=== PATIENT | female | born 1955 | race Caucasian/White ===

== ENCOUNTER → 2023-12-09 15:02 | Outpatient (REF) | payer OTHER, SELFPAY | LOC: WDC 15:02 | PROVIDERS: ATTENDING PHYSICIAN Nurse Practitioner | DX: Z12.31 Encounter for screening mammogram for malignant neoplasm of breast (principal) | CPT/HCPCS: 77063; 77067 ==

== ENCOUNTER 2023-12-15 20:13 | Emergency (ER) | payer OTHER, SELFPAY ==
[2023-12-15 20:25] VITALS: BP 171/81
[2023-12-15 20:41] LABS: % Basophils 0.2 % (0-2); % Eosinophils 1.3 % (0-6); % Immature Granulocytes 0.1 % (0-0.5); % Lymphocytes 17.3 % (20.5-51.1); % Monocytes 3.2 % (1.7-9.3); % Neutrophils 77.9 % (42.2-75.2); Absolute Eosinophils 0.1 10^3/uL (0-0.7); Absolute Lymphocytes 1.5 10^3/uL (1.2-3.4); Absolute Monocytes 0.3 10^3/uL (0.1-0.6); Absolute Neutrophils 6.6 10^3/uL (1.4-6.5); Hematocrit 38.6 % (37.0-47.0); Hemoglobin 12.9 g/dL (12.0-16.0); Mean Corp Hgb Conc. 33.4 g/dL (33.0-37.0); Mean Corpuscular Hgb 30.6 pg (27.0-31.0); Mean Corpuscular Volume 91.7 fL (81.0-99.0); Mean Platelet Volume 10.2 fL (7.4-10.4); Nucleated Red Blood Cells % 0 %; Platelet Count 243 10^3/uL (130-400); Red Blood Cell Count 4.21 10^6/uL (4.20-5.40); Red Cell Dist. Width 13.9 % (11.5-14.5); White Blood Cell Count 8.5 10^3/uL (4.8-10.8)
[2023-12-15 21:05] LABS: ALT (SGPT) 27 U/L (0-35); AST (SGOT) 30 U/L (14-36); Albumin 3.6 g/dl (3.5-5.0); Alkaline Phosphatase 101 U/L (38-126); Blood Urea Nitrogen 15 mg/dl (7-17); Calcium 10.2 mg/dl (8.4-10.2); Carbon Dioxide 22 mmol/L (22-30); Chloride 105 mmol/L (98-107); Glucose 91 mg/dl (70-99); Potassium 3.8 mmol/L (3.5-5.1); Sodium 139 mmol/L (135-145); Total Bilirubin 0.7 mg/dl (0.2-1.3); Total Protein 6.4 g/dl (6.3-8.2); eGFR > 60.00
[2023-12-15 21:15] LABS: COVID-19 Antigen Negative (Negative)
[2023-12-15 22:52] VITALS: BP 143/67
--- NOTE | 2023-12-15 22:58 | ED.GENMED ---
History of Present Illness
General
Chief Complaint: Cough
Source: patient
Exam Limitations: none
Time Seen by Provider: 12/15/23 22:37
Nursing documentation reviewed up to this point in time: agreed with
Travel History
Have you had any contact with someone who has COVID-19?: No
Do you have any symptoms of coronavirus? Fever > 100 degrees, chills, cough, shortness of breath, sore throat, loss of taste or smell, muscle aches, or headache?: Yes
Symptoms:: cough fever
History of Present Illness
History of Present Illness:
Patient with history of COPD, presents to ED secondary to persistent cough and shortness of breath over the past 3 days. Patient reports fever chills sensation yesterday, which now has resolved. Patient also reports multiple episodes of diarrhea
today. Denies nausea or vomiting. Denies loss of appetite. Denies headache. Denies dizziness. Denies recent travel or surgery. Denies sick contact. Denies leg swelling. Patient states that she has had history of pneumonia, and is concerned
that she may have another episode. Patient also reporting rib pain from persistent cough.
Past History
Past History
ED Past Medical History: COPD, HTN, Hypercholesterolemia, Valvular disease, Psychiatric (Bipolar disorder, anxiety), Other (Bronchitis) and Other (Pneumonia 2018)
ED Past Surgical History: Gynecological (Hysterectomy) and Other (Left upper lobe lobectomy)
Social History
Tobacco: Smoker
Alcohol: None
Drug: None
Personal:
Living: alone
Employment: Not employed
Family History
Family History: Hypertension
Review of Systems
Review of Systems
Allergies reviewed?: Yes
All Other Systems: ROS reviewed and negative except as documented in HPI and ROS
Constitutional: Reports no symptoms
EENT: Reports no symptoms
Respiratory: Reports cough and trouble breathing
Cardiac: Reports no symptoms
ABD/GI: Reports diarrhea; Denies abdominal pain or vomiting
: Reports no symptoms
Musculoskeletal: Reports other (rib pain)
Skin: Reports no symptoms
Neurological: Reports no symptoms
Phy Exam
Physical Exam
Physical Exam:
Physical Exam
General: no apparent distress, not acutely ill. afebrile
Head: nc/at. eomi
Neck: supple. no meningeal signs.
Heart: s1/s2 regular rate and rhythm, no murmur. equal radial pulses.
Lungs: no acute respiratory distress. clear bilaterally
Abdomen: normal bowel sounds. not tender.
Neuro: alert and oriented. no focal neurological deficits
Skin: no rash
Psychiatric: well kept. interactive and cooperative
Extremities: no edema. no calf tenderness.
Course
Orders/Labs/Results
Orders:
Orders
12/15/23 20:25
Chest [CR Chest - 2 Views ] Urgent
Comment:
Reason For Exam: cough/rib pain
12/15/23 20:33
CBC/With Diff [Complete Blood Count/With Diff] Urgent
CMP [Comprehensive Metabolic Panel] Urgent
COVID-19 Antigen Urgent
Source: Nasal Swab
Influenza A+B Rapid Molecular Urgent
KELBY Source: Nasal Swab
Specimen Description:
12/15/23 23:06
Azithromycin [Zithromax] 500 mg PO NOW STA
Benzonatate [Tessalon Perles] 100 mg PO NOW STA
Prednisone [Deltasone] 50 mg PO NOW STA
Abnormal Lab Results
12/15/23
20:33
Absolute Neuts (auto) 6.6 H 10^3/uL
(1.4-6.5)
Neutrophils % 77.9 H %
(42.2-75.2)
Lymphocytes % 17.3 L %
(20.5-51.1)
Creatinine 0.5 L mg/dL
(0.6-1.0)
12/15/23 20:33
12/15/23 20:33
Vital Signs
Initial and Last Documented VS:
Initial Vital Signs
Temp Pulse Resp BP Pulse Ox
98.7 F 84 17 171/81 96
12/15/23 20:25 12/15/23 20:25 12/15/23 20:25 12/15/23 20:25 12/15/23 20:25
Last Documented Vital Signs
Temp Pulse Resp BP Pulse Ox
98.9 F 82 16 143/67 94
12/15/23 22:52 12/15/23 22:52 12/15/23 22:52 12/15/23 22:52 12/15/23 22:52
MDM/Problems Addressed
MDM/Problems Addressed:
Chest x-ray: No acute findings. Patient otherwise remains afebrile, he medically stable, without any acute respiratory distress.
History and exam concerning for likely bronchitis versus early pneumonia versus viral illness. After discussion, decision made to discharge home with the following recommendation: Zithromax, prednisone, and Tessalon Perles. Advised PCP follow-up
as an outpatient next week, or return to ED with worsening symptoms.
*Radiology
Radiology exam reviewed: radiology read reviewed
*Critical Care Note
Total Time (30-74mins, 75-104mins- exclusive of procedures): Not Applicable
ED Attending Note
-
Portions of this chart may have been created with voice recognition software.� Occasional wrong word or��sound alike� substitutions may have occurred due to the inherent limitations of voice recognition software.
Discharge Plan
Departure
Patient Disposition: Home (Routine Discharge)
Date of Disposition: 12/15/23
Time of Disposition: 23:07
Patient with high blood pressure during this ER visit?: Yes
Condition: Fair
Covid-19: Negative COVID-19
Discharge Problem:
Acute bronchitis
Instructions: Acute Bronchitis, Adult (DC)
Prescriptions:
New
azithromycin [Zithromax] 250 mg tablet
250 mg PO DAILY 4 Days Qty: 4 0RF
benzonatate 100 mg capsule
100 mg PO TID PRN (Reason: cough) Qty: 20 0RF
prednisone 50 mg tablet
50 mg PO DAILY Qty: 2 0RF
No Action
atorvastatin 40 MG tablet
40 mg PO DAILY
quetiapine [Seroquel] 400 MG tablet
800 mg PO HS
Rx Instructions:
patient also filled 200mg daily and 400mg bid on 05/31/23
buprenorphine HCl [Belbuca] 750 MCG film
750 mcg BC BID
Rx Instructions:
[facility]mp patient filled on 05/01/23 #60 [facility] [place] [facility]
clonazepam 0.5 MG tablet
0.5 mg PO TID
Rx Instructions:
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
escitalopram oxalate 10 MG tablet
10 mg PO BID
Rx Instructions:
no record in pharmacy
hydrochlorothiazide 12.5 MG tablet
12.5 mg PO DAILY
Rx Instructions:
06/06/23--no pharmacy records, [facility] records show tid/or as directed
gabapentin 800 mg Tablet
400 mg PO TID
hydrocodone-acetaminophen 7.5-325 mg tablet
1 tab PO TID PRN (Reason: severe pains)
Rx Instructions:
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
prednisone 20 mg tablet
40 mg PO DAILY Qty: 8 0RF
Activity Restrictions/Additional Instructions:
As discussed, please follow-up with your primary care doctor for reevaluation next week. Your prescriptions have been sent electronically to [facility] on [facility] in [place].
Interventions
Interventions:
*Risk Screen - Suicide Last Done: 12/15/23 20:25
*General Assessment Last Done: 12/15/23 20:25
*Neglect/Abuse Screening Last Done: 12/15/23 20:25
ED- Fall Risk Assessment Last Done: 12/15/23 22:48
*ED COVID-19 Vaccine History Last Done: 12/15/23 20:25
*Nursing Disposition Last Done: 12/15/23 23:25
ED- Pulmonary Assessment Last Done: 12/15/23 22:48
Discharge Date and Time
Discharge Date/Time: 12/15/23 23:25
[2023-12-15] MEDS: DELTASONE 50 MG PO (23:21)
[2023-12-15] MEDS: TESSALON PERLES 100 MG PO (23:21)
[2023-12-15] MEDS: ZITHROMAX 500 MG PO (23:21)
== END 2023-12-15 23:25 | disposition home or self-care (01) ==
LOC: EMR 20:13
PROVIDERS: Emergency Medicine; EMERGENCY PHYSICIAN Emergency Medicine; FAMILY PHYSICIAN Nurse Practitioner
DX: J20.9 Acute bronchitis, unspecified (principal); R19.7 Diarrhea, unspecified; Z11.52 Encounter for screening for COVID-19; I10 Essential (primary) hypertension; E78.00 Pure hypercholesterolemia, unspecified; J44.9 Chronic obstructive pulmonary disease, unspecified; I38 Endocarditis, valve unspecified; F31.9 Bipolar disorder, unspecified; M19.90 Unspecified osteoarthritis, unspecified site; F32.A Depression, unspecified; F41.9 Anxiety disorder, unspecified; F17.200 Nicotine dependence, unspecified, uncomplicated; Z87.01 Personal history of pneumonia (recurrent); Z90.2 Acquired absence of lung [part of]
CPT/HCPCS: 99283; 71046; 80053; 85025; 87502; 87811

== ENCOUNTER 2024-08-02 20:27 | Emergency (ER) | payer OTHER, SELFPAY ==
[2024-08-02 20:29] VITALS: BP 131/72
[2024-08-02 22:36] VITALS: BP 109/57
[2024-08-03] MEDS: TORADOL 15 MG IM (00:16)
[2024-08-03 00:18] VITALS: BMI 22.2
[2024-08-03 00:20] VITALS: BP 110/61
--- NOTE | 2024-08-03 00:24 | ED.GENMED ---
History of Present Illness
General
Chief Complaint: Fall
Time Seen by Provider: 08/02/24 23:34
History of Present Illness
History of Present Illness:
69-year-old female with history of COPD presenting to the emergency department with buttock and pelvic pain after she fell 3 days ago. Patient reports that she slipped down 3 steps, concrete and landed on her buttock. She now has bruising to the
left buttock region and generalized pain. She has been able to ambulate. Denies numbness or tingling to her legs. Denies fever. Denies bowel or bladder issues. Denies abdominal pain or GI issues. Denies chest pain or difficulty breathing.
Reports that she slipped on the steps, they were wet with fleas. Denies any prodromal syncopal symptoms. Denies additional acute medical complaints
Past History
Past History
ED Past Medical History: COPD, HTN, Hypercholesterolemia, Valvular disease, Psychiatric (Bipolar disorder, anxiety), Other (Bronchitis) and Other (Pneumonia 2018)
ED Past Surgical History: Gynecological (Hysterectomy) and Other (Left upper lobe lobectomy)
Social History
Tobacco: Smoker
Alcohol: None
Drug: None
Personal:
Living: alone
Employment: Not employed
Family History
Family History: Hypertension
Phy Exam
Physical Exam
Physical Exam:
General: Well-appearing, no clinical signs of dehydration, nontoxic and in no acute distress
HEENT: protecting airway
Neck: appears supple
CV: Normal heart rate
Resp: No accessory muscle use, no increased work of breathing
Abd: No distention
Extremities: No deformities. Range of motion and sensation intact to the lower extremities. Bruising to the left buttock without significant hematoma. Generalized pain to the pelvis region, stable.
Neuro: alert, no focal neurologic deficit
: deferred
Rectal: deferred
Psych: Normal affect
Skin: Intact
Course
Orders/Labs/Results
Orders:
Orders
08/03/24 00:[address]
CT Pelvis W/o Iv Contrast Urgent
Comment:
Reason For Exam: fall, bruising left buttock, generalized pain
Ketorolac [Toradol] 15 mg IM NOW STA
Vital Signs
Initial and Last Documented VS:
Initial Vital Signs
Temp Pulse Resp BP Pulse Ox
98.1 F 76 16 131/72 98
08/02/24 20:29 08/02/24 20:29 08/02/24 20:29 08/02/24 20:29 08/02/24 20:29
Last Documented Vital Signs
Temp Pulse Resp BP Pulse Ox
98.1 F 60 16 130/64 96
08/02/24 20:29 08/03/24 02:39 08/03/24 02:39 08/03/24 02:39 08/03/24 02:39
MDM/Problems Addressed
MDM/Problems Addressed:
69-year-old female with history of COPD presenting with buttock pain after a fall 3 days ago. Vital signs on arrival are normal.
On exam, is well-appearing, no discomfort. Patient with obvious signs of ecchymosis to the left buttock region, generalized pain. Suspected musculoskeletal injury, minor in quality. However, given generalized pain to the pelvic region patient's
age, pelvic fracture is a consideration, will obtain CT imaging of the pelvis. No neurovascular compromise to the lower extremities, range of motion intact. Toradol administered for pain.
03:20 - CT of the pelvis without fractures or malalignment. Continue to suspect minor soft tissue injury. CT notes possible right gluteus medius tendon tear on the right side, however patient's injury in the left. Less suspicious at this time.
Feel stable for discharge with continued outpatient supportive therapy. Return precautions discussed and patient verbalized understanding
*Critical Care Note
Total Time (30-74mins, 75-104mins- exclusive of procedures): Not Applicable
ED Attending Note
-
Portions of this chart may have been created with voice recognition software.� Occasional wrong word or��sound alike� substitutions may have occurred due to the inherent limitations of voice recognition software.
Discharge Plan
Departure
Prescriptions:
No Action
atorvastatin 40 MG tablet
40 mg PO DAILY
quetiapine [Seroquel] 400 MG tablet
800 mg PO HS
Rx Instructions:
patient also filled 200mg daily and 400mg bid on 05/31/23
buprenorphine HCl [Belbuca] 750 MCG film
750 mcg BC BID
Rx Instructions:
pdmp patient filled on 05/01/23 #60 [facility]
clonazepam 0.5 MG tablet
0.5 mg PO TID
Rx Instructions:
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
escitalopram oxalate 10 MG tablet
10 mg PO BID
Rx Instructions:
no record in pharmacy
hydrochlorothiazide 12.5 MG tablet
12.5 mg PO DAILY
Rx Instructions:
06/06/23--no pharmacy records, [facility] records show tid/or as directed
gabapentin 800 mg Tablet
400 mg PO TID
hydrocodone-acetaminophen 7.5-325 mg tablet
1 tab PO TID PRN (Reason: severe pains)
Rx Instructions:
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
prednisone 20 mg tablet
40 mg PO DAILY Qty: 8 0RF
azithromycin [Zithromax] 250 mg tablet
250 mg PO DAILY 4 Days Qty: 4 0RF
benzonatate 100 mg capsule
100 mg PO TID PRN (Reason: cough) Qty: 20 0RF
prednisone 50 mg tablet
50 mg PO DAILY Qty: 2 0RF
Referrals:
Mary Lou Castorena CRNP [Family Provider] -
Interventions
Interventions:
*Risk Screen - Suicide Last Done: 08/02/24 20:32
*General Assessment Last Done: 08/02/24 23:28
*Neglect/Abuse Screening Last Done: 08/02/24 20:32
*ED COVID-19 Vaccine History Last Done: 08/02/24 23:28
ED-Musculoskeletal Assessment Last Done: 08/03/24 00:20
ED- Neurological Assessment Last Done: 08/03/24 00:20
ED-Skin Assessment Last Done: 08/03/24 00:20
Discharge Date and Time
Print Language: CYMRAES
[2024-08-03 02:39] VITALS: BP 130/64
== END 2024-08-03 03:42 | disposition home or self-care (01) ==
LOC: EMR 20:27
PROVIDERS: EMERGENCY PHYSICIAN Student in an Organized Health Care Education/Training Program; FAMILY PHYSICIAN Nurse Practitioner
DX: S30.0XXA Contusion of lower back and pelvis, initial encounter (principal); R10.2 Pelvic and perineal pain; W10.9XXA Fall (on) (from) unspecified stairs and steps, initial encounter; J44.9 Chronic obstructive pulmonary disease, unspecified; I10 Essential (primary) hypertension; E78.00 Pure hypercholesterolemia, unspecified; F31.9 Bipolar disorder, unspecified; I38 Endocarditis, valve unspecified; F41.9 Anxiety disorder, unspecified; F17.200 Nicotine dependence, unspecified, uncomplicated; Z87.01 Personal history of pneumonia (recurrent); Z90.2 Acquired absence of lung [part of]
CPT/HCPCS: 99284; 96372; 72192

== ENCOUNTER 2024-09-06 14:19 | Emergency (ER) | payer OTHER, SELFPAY ==
[2024-09-06 14:26] VITALS: BP 117/58
--- NOTE | 2024-09-06 15:28 | ED.GENMED ---
History of Present Illness
General
Chief Complaint: Back Pain
Source: patient
Exam Limitations: none
Time Seen by Provider: 09/06/24 15:16
History of Present Illness
History of Present Illness:
69-year-old female presents to the ER for low back pain. 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 She went to
bed and thought she would feel better this morning but continues to complain of pain across the low back. She is taking her normal hydrocodone. She denies any radiation. She denies any bowel or bladder incontinence. She feels nauseous because
the pain. It is worse with movement and changing positions.
Past History
Past History
ED Past Medical History: COPD, HTN, Hypercholesterolemia, Valvular disease, Psychiatric (Bipolar disorder, anxiety), Other (Bronchitis) and Other (Pneumonia 2018)
ED Past Surgical History: Gynecological (Hysterectomy) and Other (Left upper lobe lobectomy)
Social History
Tobacco: Smoker
Alcohol: None
Drug: None
Personal:
Living: alone
Employment: Not employed
Family History
Family History: Hypertension
Review of Systems
Review of Systems
Allergies reviewed?: Yes
All Other Systems: ROS reviewed and negative except as documented in HPI and ROS
Constitutional: Reports no symptoms; Denies fever, fatigue or chills
ABD/GI: Reports nausea; Denies abdominal pain or vomiting
: Denies incontinence
Musculoskeletal: Reports back pain
Skin: Reports no symptoms
Neurological: Reports no symptoms
Psychiatric: Reports no symptoms
Phy Exam
General Physical Exam
General Presentation: no apparent distress
General age: appears stated age
General Skin: warm and dry
General Habitus: normal
General Mental: alert
General Hydration: appears well hydrated
Gastrointestinal Exam
Gastrointestinal Exam: non tender and soft
Neurological Exam
Neurological Exam: alert, oriented x3, no motor deficits, no sensory deficits and other (Normal distal sensation normal dorsiflexion plantarflexion)
Musculoskeletal Exam
Musculoskeletal Exam: other (Normal back inspection tender throughout the paralumbar regions)
Course
Orders/Labs/Results
Orders:
Orders
09/06/24 15:26
Lumbar Spine Complete, 4 View [CR Lumbar Spine Comp Min 4 Vw*] Urgent
Comment:
Reason For Exam: low back pain after lifting
09/06/24 15:27
Acetaminophen [Tylenol] 650 mg PO NOW STA
Ketorolac [Toradol] 30 mg IM NOW STA
Lidocaine [Lidocaine 4% Patch] 1 patch TOPICAL NOW STA
Apply Lidocaine patch(s) to:: lower back
Vital Signs
Initial and Last Documented VS:
Initial Vital Signs
Temp Pulse Resp BP Pulse Ox
98.6 F 76 16 117/58 95
09/06/24 14:26 09/06/24 14:26 09/06/24 14:26 09/06/24 14:26 09/06/24 14:26
Last Documented Vital Signs
Temp Pulse Resp BP Pulse Ox
98.6 F 76 16 117/58 95
09/06/24 14:26 09/06/24 14:26 09/06/24 14:26 09/06/24 14:26 09/06/24 14:26
MDM/Problems Addressed
Differential Diagnosis Includes:
Not limited to sprain strain less likely compression fracture
MDM/Problems Addressed:
Symptoms are consistent with muscle sprain strain. X-ray negative for any compression fracture. Patient with no neurological deficits. Patient is chronically on narcotics for chronic back pain. Will DC with Tylenol, alternating with ibuprofen as
she reports normal kidney function(last creatinine done 12/23 which was normal )with ice and alternating heat.
Discussed close outpatient follow-up with family doctor.
*Radiology
Radiology exam reviewed: radiology read reviewed
*Critical Care Note
Total Time (30-74mins, 75-104mins- exclusive of procedures): Not Applicable
ED Attending Note
-
Portions of this chart may have been created with voice recognition software.� Occasional wrong word or��sound alike� substitutions may have occurred due to the inherent limitations of voice recognition software.
Discharge Plan
Departure
Patient Disposition: Home (Routine Discharge)
Date of Disposition: 09/06/24
Time of Disposition: 16:34
Patient with high blood pressure during this ER visit?: No
Condition: Fair
Covid-19: Not Applicable
Discharge Problem:
Lumbar strain
Instructions: Low Back Pain (DC), Back Muscle Strain (DC)
Prescriptions:
New
lidocaine 5 % adhesive patch,medicated
1 patch topical DAILY Qty: 15 0RF
Rx Instructions:
remove after 12 hrs
No Action
atorvastatin 40 MG tablet
40 mg PO DAILY
quetiapine [Seroquel] 400 MG tablet
800 mg PO HS
Rx Instructions:
patient also filled 200mg daily and 400mg bid on 05/31/23
buprenorphine HCl [Belbuca] 750 MCG film
750 mcg BC BID
Rx Instructions:
pdmp patient filled on 05/01/23 #60 [facility] [place] [facility]
clonazepam 0.5 MG tablet
0.5 mg PO TID
Rx Instructions:
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
escitalopram oxalate 10 MG tablet
10 mg PO BID
Rx Instructions:
no record in pharmacy
hydrochlorothiazide 12.5 MG tablet
12.5 mg PO DAILY
Rx Instructions:
06/06/23--no pharmacy records, [facility] records show tid/or as directed
gabapentin 800 mg Tablet
400 mg PO TID
hydrocodone-acetaminophen 7.5-325 mg tablet
1 tab PO TID PRN (Reason: severe pains)
Rx Instructions:
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
prednisone 20 mg tablet
40 mg PO DAILY Qty: 8 0RF
azithromycin [Zithromax] 250 mg tablet
250 mg PO DAILY 4 Days Qty: 4 0RF
benzonatate 100 mg capsule
100 mg PO TID PRN (Reason: cough) Qty: 20 0RF
prednisone 50 mg tablet
50 mg PO DAILY Qty: 2 0RF
Referrals:
Cailin Bedolla CRNP [Family Provider] -
Activity Restrictions/Additional Instructions:
As discussed ice affected area for the next 24 hours 20 minutes at a time several times a day followed by warm moist heat. You may continue to take your pain medication and alternate with ibuprofen. Return if any worsening of symptoms. Follow-up
with your family doctor the next several days for reevaluation.
Interventions
Interventions:
*Risk Screen - Suicide Last Done: 09/06/24 16:34
*General Assessment Last Done: 09/06/24 16:34
*Neglect/Abuse Screening Last Done: 09/06/24 16:34
ED-Musculoskeletal Assessment Last Done: 09/06/24 15:11
Discharge Date and Time
Print Language: MAORI
[2024-09-06] MEDS: TORADOL 30 MG IM (16:12)
[2024-09-06] MEDS: TYLENOL 650 MG PO (16:12)
[2024-09-06] MEDS: LIDOCAINE 4% PATCH 1 PATCH TOPICAL (16:13)
[2024-09-06 16:53] VITALS: BP 123/69
== END 2024-09-06 16:55 | disposition home or self-care (01) ==
LOC: EMR 14:19
PROVIDERS: EMERGENCY PHYSICIAN Emergency Medicine; FAMILY PHYSICIAN Nurse Practitioner Family
DX: S39.012A Strain of muscle, fascia and tendon of lower back, initial encounter (principal); X50.1XXD Overexertion from prolonged static or awkward postures, subsequent encounter; F17.200 Nicotine dependence, unspecified, uncomplicated
CPT/HCPCS: 99284; 96372; 72110

== ENCOUNTER → 2024-09-17 13:04 | Outpatient (REF) | payer OTHER, SELFPAY ==
[2024-09-17 16:36] LABS: ALT (SGPT) 34 U/L (0-35); AST (SGOT) 31 U/L (14-36); Albumin 4.5 g/dl (3.5-5.0); Alkaline Phosphatase 77 U/L (38-126); Blood Urea Nitrogen 15 mg/dl (7-17); Calcium 9.9 mg/dl (8.4-10.2); Carbon Dioxide 26 mmol/L (22-30); Chloride 105 mmol/L (98-107); Glucose 103 mg/dl (70-99); HDL Cholesterol 68 mg/dl; LDL Cholesterol, Calculated 80 mg/dl; Potassium 4.4 mmol/L (3.5-5.1); Sodium 143 mmol/L (135-145); Total Bilirubin 0.6 mg/dl (0.2-1.3); Total Cholesterol 169 mg/dl (50-199); Total Protein 6.8 g/dl (6.3-8.2); Triglyceride 107 mg/dl (10-149); Very Low Density Lipoprotein 21 mg/dl (0-30); eGFR > 60.00
[2024-09-17 17:04] LABS: TSH 0.78 uIU/ml (0.47-4.68)
[2024-09-17 17:23] LABS: Vitamin B12 413 pg/ml (239-931)
== END ==
LOC: REG 13:04
PROVIDERS: ATTENDING PHYSICIAN Nurse Practitioner
DX: F17.210 Nicotine dependence, cigarettes, uncomplicated (principal); Z86.39 Personal history of other endocrine, nutritional and metabolic disease
CPT/HCPCS: 36415; 71271; 80053; 80061; 82607; 84443

== ENCOUNTER 2024-10-15 14:33 | Emergency (ER) | payer OTHER, SELFPAY ==
[2024-10-15] VITALS (7 sets, daily range): BP systolic 94–135; BP diastolic 55–78; PULSE 65–70; BMI 24.4
--- NOTE | 2024-10-15 14:37 | ED.GENMED ---
ED Provider Triage
<CARITO Roman - Last Filed: 10/15/24 14:45>
-
Patient seen by provider in Triage?: Seen in Triage
Attestation: A medical screening examination has been initiated by a qualified medical provider. Based on the assessment performed at this time, it has been determined that an emergent medical condition may exist and the patient has been informed
that further medical evaluation and possible additional diagnostic testing may be needed.
HPI: 69 yr old female brought by daughter for dizziness and falls. (This is pt's 2nd fall in 2 wks ).
Pt was found on the floor today in her house awake and daughter found her. Pt reports she walked over to get something 'and just fell.' She felt 'wobbly and dizzy then remembers falling. Pt reports she slid down onto her buttocks. Pt c/o of
mild headache. Daughter thought she noticed a slight droop on her left.
Pt denies any upper/lower extremity weakness. denies any difficulty getting her words out . No history of stroke.
No chest pain, no difficulty breathing. no fevers
GENERAL: Alert , in no apparent distress
EYE: No visual abnormalities.
NECK: Trachea midline
ENT: No visible abnormalities.
LUNGS: No acute respiratory distress
NEUROLOGICAL: Alert and oriented no focal deficit
SKIN: Skin intact. No visible changes.
MUSCULOSKELETAL: Moving extremities normally
PSYCH: Normal and appropriate interaction.
This is a medical evaluation conducted in person to initiate diagnostic evaluation and provide initial therapeutics. Please see further documentation by the treating clinician.
History of Present Illness
<CARITO Roman - Last Filed: 10/15/24 14:45>
General
Chief Complaint: Dizziness
Time Seen by Provider: 10/15/24 20:08
<Basilio Marino DO Resident - Last Filed: 10/15/24 23:15>
History of Present Illness
History of Present Illness:
69-year-old female with past med history of COPD, hyperlipidemia, hypertension and lung lobectomy 30 years ago presents for a witnessed fall. Patient reports she was at home trying to plug in an appliance when she begun feeling dizzy, she then fell
onto her butt. Patient reports not hitting her head or losing consciousness, and her daughter witnessed the entire event. Patient reports this is her second fall in a few weeks. Patient endorses dizziness on standing. Per the daughter patient
has new onset facial droop left-sided and slurred speech. CT head in ED was negative for any intracranial hemorrhage. EKG was within normal limits.
Past History
<CARITO Roman - Last Filed: 10/15/24 14:45>
Past History
ED Past Medical History: COPD, HTN, Hypercholesterolemia, Valvular disease, Psychiatric (Bipolar disorder, anxiety), Other (Bronchitis) and Other (Pneumonia 2018)
ED Past Surgical History: Gynecological (Hysterectomy) and Other (Left upper lobe lobectomy)
Social History
Tobacco: Smoker
Alcohol: None
Drug: None
Personal:
Living: alone
Employment: Not employed
Family History
Family History: Hypertension
Review of Systems
<Basilio Marino DO, Resident - Last Filed: 10/15/24 23:15>
Review of Systems
Constitutional: Reports fatigue
Respiratory: Reports cough and trouble breathing
Cardiac: Reports no symptoms
ABD/GI: Reports no symptoms
Musculoskeletal: Reports no symptoms
Neurological: Reports dizzy and weakness
Phy Exam
<Basilio Marino DO, Resident - Last Filed: 10/15/24 23:15>
General Physical Exam
General Presentation: no apparent distress
General age: appears older than age
General Skin: warm and dry
Cardiovascular Exam
Cardiovascular Exam: regular rate/rhythm, no edema and no murmur
Pulmonary Exam
Pulmonary Exam: no respiratory distress and other (Diffuse wheezing present throughout lung barba)
Gastrointestinal Exam
Gastrointestinal Exam: non tender, soft and non distended
Neurological Exam
Neurological Exam: alert, oriented x3, CN II-XII intact, no motor deficits, no sensory deficits, facial droop and slurred speech (Speech slightly slurred)
Course
<CARITO Roman - Last Filed: 10/15/24 14:45>
Orders/Labs/Results
Orders:
Orders
10/15/24 14:43
CT Head W/o Iv Contrast Urgent
Comment:
Reason For Exam: dizziness
10/15/24 14:44
Electrocardiogram (*1) Stat
Reason for Study: Other
Other Reason for Exam: chest pain
EKG- Treatment ONCE
10/15/24 14:51
Complete Blood Count/With Diff Urgent
Comprehensive Metabolic Panel Urgent
Troponin I Urgent
10/15/24 20:56
Orthostatic VS- Treatment ONCE
10/15/24 20:57
Ipratropium/Albuterol Sulfate [Duoneb] 3 ml INH R NOW STA
10/15/24 21:05
0.9% Sodium Chloride 1000 ml [Nss] 1,000 ml IV BOLUS
Abnormal Lab Results
10/15/24
14:51
RBC 4.01 L 10^6/uL
(4.20-5.40)
MCHC 32.7 L g/dL
(33.0-37.0)
BUN 18 H mg/dl
(7-17)
Glucose 113 H mg/dl
(70-99)
Total Protein 6.2 L g/dl
(6.3-8.2)
10/15/24 14:51
10/15/24 14:51
Vital Signs
Initial and Last Documented VS:
Initial Vital Signs
Temp Pulse Resp BP Pulse Ox
98.2 F 75 20 109/61 98
10/15/24 14:37 10/15/24 14:37 10/15/24 14:37 10/15/24 14:37 10/15/24 14:37
Last Documented Vital Signs
Temp Pulse Resp BP Pulse Ox
98.2 F 69 14 94/78 93
10/15/24 21:00 10/15/24 18:00 10/15/24 18:00 10/15/24 18:00 10/15/24 22:33
<Basilio Marino DO, Resident - Last Filed: 10/15/24 23:15>
Orders/Labs/Results
Orders:
Orders
10/15/24 14:43
CT Head W/o Iv Contrast Urgent
Comment:
Reason For Exam: dizziness
10/15/24 14:44
Electrocardiogram (*1) Stat
Reason for Study: Other
Other Reason for Exam: chest pain
EKG- Treatment ONCE
10/15/24 14:51
Complete Blood Count/With Diff Urgent
Comprehensive Metabolic Panel Urgent
Troponin I Urgent
10/15/24 20:56
Orthostatic VS- Treatment ONCE
10/15/24 20:57
Ipratropium/Albuterol Sulfate [Duoneb] 3 ml INH R NOW STA
10/15/24 21:05
0.9% Sodium Chloride 1000 ml [Nss] 1,000 ml IV BOLUS
Abnormal Lab Results
10/15/24
14:51
RBC 4.01 L 10^6/uL
(4.20-5.40)
MCHC 32.7 L g/dL
(33.0-37.0)
BUN 18 H mg/dl
(7-17)
Glucose 113 H mg/dl
(70-99)
Total Protein 6.2 L g/dl
(6.3-8.2)
10/15/24 14:51
10/15/24 14:51
Vital Signs
Initial and Last Documented VS:
Initial Vital Signs
Temp Pulse Resp BP Pulse Ox
98.2 F 75 20 109/61 98
10/15/24 14:37 10/15/24 14:37 10/15/24 14:37 10/15/24 14:37 10/15/24 14:37
Last Documented Vital Signs
Temp Pulse Resp BP Pulse Ox
98.2 F 69 14 94/78 93
10/15/24 21:00 10/15/24 18:00 10/15/24 18:00 10/15/24 18:00 10/15/24 22:33
<Kali Christianson, DO - Last Filed: 10/15/24 21:07>
Orders/Labs/Results
Orders:
Orders
10/15/24 14:43
CT Head W/o Iv Contrast Urgent
Comment:
Reason For Exam: dizziness
10/15/24 14:44
Electrocardiogram (*1) Stat
Reason for Study: Other
Other Reason for Exam: chest pain
EKG- Treatment ONCE
10/15/24 14:51
Complete Blood Count/With Diff Urgent
Comprehensive Metabolic Panel Urgent
Troponin I Urgent
10/15/24 20:56
Orthostatic VS- Treatment ONCE
10/15/24 20:57
Ipratropium/Albuterol Sulfate [Duoneb] 3 ml INH R NOW STA
10/15/24 21:05
0.9% Sodium Chloride 1000 ml [Nss] 1,000 ml IV BOLUS
Abnormal Lab Results
10/15/24
14:51
RBC 4.01 L 10^6/uL
(4.20-5.40)
MCHC 32.7 L g/dL
(33.0-37.0)
BUN 18 H mg/dl
(7-17)
Glucose 113 H mg/dl
(70-99)
Total Protein 6.2 L g/dl
(6.3-8.2)
10/15/24 14:51
10/15/24 14:51
Vital Signs
Initial and Last Documented VS:
Initial Vital Signs
Temp Pulse Resp BP Pulse Ox
98.2 F 75 20 109/61 98
10/15/24 14:37 10/15/24 14:37 10/15/24 14:37 10/15/24 14:37 10/15/24 14:37
Last Documented Vital Signs
Temp Pulse Resp BP Pulse Ox
98.2 F 69 14 94/78 93
10/15/24 21:00 10/15/24 18:00 10/15/24 18:00 10/15/24 18:00 10/15/24 22:33
<Basilio Marino DO, Resident - Last Filed: 10/15/24 23:15>
MDM/Problems Addressed
Differential Diagnosis Includes:
Orthostatic hypotension versus mechanical fall versus primary gait disturbance
MDM/Problems Addressed:
#Orthostatic hypotension versus mechanical fall versus gait disturbance
Witnessed fall on butt while patient was attempting to plug an appliance, patient did not lose consciousness or hit her head. Fall was witnessed by patient's daughter
Multiple recurrent falls over the past couple months. Patient endorses her previous falls were mechanical in nature. Her fall today was precipitated by feelings of dizziness on standing
Will check orthostatic vitals and nursing to evaluate gait
Orthostatic vitals positive
Ordered 1 L IV normal saline bolus
CT head without contrast did not demonstrate any acute intracranial hemorrhage
EKG within normal limits
Diffuse wheezing present on exam, known COPD. Will order DuoNebs
<Basilio Marino DO, Resident - Last Filed: 10/15/24 23:15>
*Critical Care Note
Total Time (30-74mins, 75-104mins- exclusive of procedures): Not Applicable
ED Attending Note
<CARITO Roman - Last Filed: 10/15/24 14:45>
-
Portions of this chart may have been created with voice recognition software.� Occasional wrong word or��sound alike� substitutions may have occurred due to the inherent limitations of voice recognition software.
<Kali Christianson DO - Last Filed: 10/15/24 21:07>
ED Attending Note
Patient seen and examined by attending physician: Yes
I performed the substantive portion of visit, reviewed & personally made and approve the management plan that is documented in note by myself or QUINTIN.: Yes
I performed a history and physical exam of patient and discussed management with resident, I reviewed resident's note and agree with documented findings and plan of care.: Yes
ED Attending Note:
Seen with resident patient with a few episodes of falls, today fell after standing here workup is negative pulse ox 92-93 she is wheezing she is a smoker, COPD history could be consistent with orthostasis which requires tach vital signs, treat with
saline if appropriate, review her meds, ambulate
Discharge Plan
Departure
Patient Disposition: Home (Routine Discharge)
Date of Disposition: 10/15/24
Time of Disposition: 22:42
Patient with high blood pressure during this ER visit?: No
Condition: Good
Discharge Problem:
Orthostasis
Instructions: Dizziness
Prescriptions:
No Action
atorvastatin 40 MG tablet
40 mg PO DAILY
quetiapine [Seroquel] 400 MG tablet
800 mg PO HS
Rx Instructions:
patient also filled 200mg daily and 400mg bid on 05/31/23
buprenorphine HCl [Belbuca] 750 MCG film
750 mcg BC BID
Rx Instructions:
[facility]mp patient filled on 05/01/23 #60 [facility] [place] [facility]
clonazepam 0.5 MG tablet
0.5 mg PO TID
Rx Instructions:
pdmp patient potato picker on 05/28/23 #90
escitalopram oxalate 10 MG tablet
10 mg PO BID
Rx Instructions:
no record in pharmacy
hydrochlorothiazide 12.5 MG tablet
12.5 mg PO DAILY
Rx Instructions:
06/06/23--no pharmacy records, [facility] records show tid/or as directed
gabapentin 800 mg Tablet
400 mg PO TID
hydrocodone-acetaminophen 7.5-325 mg tablet
1 tab PO TID PRN (Reason: severe pains)
Rx Instructions:
pdmp patient potato picker on 05/28/23 #90
prednisone 20 mg tablet
40 mg PO DAILY Qty: 8 0RF
azithromycin [Zithromax] 250 mg tablet
250 mg PO DAILY 4 Days Qty: 4 0RF
benzonatate 100 mg capsule
100 mg PO TID PRN (Reason: cough) Qty: 20 0RF
prednisone 50 mg tablet
50 mg PO DAILY Qty: 2 0RF
lidocaine 5 % adhesive patch,medicated
1 patch topical DAILY Qty: 15 0RF
Rx Instructions:
remove after 12 hrs
Referrals:
Mary Lou Castorena CRNP [Family Provider] - Next open appointment
Interventions
Interventions:
*Risk Screen - Suicide Last Done: 10/15/24 14:37
*General Assessment Last Done: 10/15/24 14:37
*Neglect/Abuse Screening Last Done: 10/15/24 14:37
ED- Fall Risk Assessment Last Done: 10/15/24 18:54
*ED COVID-19 Vaccine History Last Done: 10/15/24 18:59
ED- Cardiac Assessment Last Done: 10/15/24 19:00
ED- Neurological Assessment Last Done: 10/15/24 19:00
ED Swallowing Screen Last Done: 10/15/24 18:09
Discharge Date and Time
Print Language: NAURUAN
[2024-10-15 15:06] LABS: % Basophils 0.3 % (0-2); % Eosinophils 1.3 % (0-6); % Immature Granulocytes 0.3 % (0-0.5); % Lymphocytes 29.2 % (20.5-51.1); % Monocytes 3.7 % (1.7-9.3); % Neutrophils 65.2 % (42.2-75.2); Absolute Eosinophils 0.1 10^3/uL (0-0.7); Absolute Lymphocytes 1.7 10^3/uL (1.2-3.4); Absolute Monocytes 0.2 10^3/uL (0.1-0.6); Absolute Neutrophils 3.9 10^3/uL (1.4-6.5); Hematocrit 37.3 % (37.0-47.0); Hemoglobin 12.2 g/dL (12.0-16.0); Mean Corp Hgb Conc. 32.7 g/dL (33.0-37.0); Mean Corpuscular Hgb 30.4 pg (27.0-31.0); Mean Platelet Volume 10.1 fL (7.4-10.4); Nucleated Red Blood Cells % 0 %; Platelet Count 253 10^3/uL (130-400); Red Blood Cell Count 4.01 10^6/uL (4.20-5.40); Red Cell Dist. Width 13.4 % (11.5-14.5); White Blood Cell Count 5.9 10^3/uL (4.8-10.8)
[2024-10-15 15:21] LABS: ALT (SGPT) 28 U/L (0-35); AST (SGOT) 32 U/L (14-36); Albumin 3.9 g/dl (3.5-5.0); Alkaline Phosphatase 85 U/L (38-126); Blood Urea Nitrogen 18 mg/dl (7-17); Calcium 9.8 mg/dl (8.4-10.2); Carbon Dioxide 29 mmol/L (22-30); Chloride 106 mmol/L (98-107); Glucose 113 mg/dl (70-99); Potassium 4.3 mmol/L (3.5-5.1); Sodium 141 mmol/L (135-145); Total Bilirubin 0.3 mg/dl (0.2-1.3); Total Protein 6.2 g/dl (6.3-8.2); eGFR > 60.00
[2024-10-15 15:34] LABS: Troponin I < 0.012 ng/ml
[2024-10-15] MEDS: DUONEB 3 ML INH (21:35)
[2024-10-15] MEDS: NSS 1000 IV (21:35)
== END 2024-10-16 00:11 | disposition home or self-care (01) ==
LOC: EMR 14:33
PROVIDERS: Nurse Practitioner; EMERGENCY PHYSICIAN Emergency Medicine; FAMILY PHYSICIAN Nurse Practitioner
DX: R42 Dizziness and giddiness (principal); R06.2 Wheezing; R29.810 Facial weakness; R47.81 Slurred speech; R05.9 Cough, unspecified; R06.00 Dyspnea, unspecified; R53.83 Other fatigue; R51.9 Headache, unspecified; W19.XXXA Unspecified fall, initial encounter; J44.9 Chronic obstructive pulmonary disease, unspecified; E78.00 Pure hypercholesterolemia, unspecified; I38 Endocarditis, valve unspecified; F31.9 Bipolar disorder, unspecified; F41.9 Anxiety disorder, unspecified; I10 Essential (primary) hypertension; F17.200 Nicotine dependence, unspecified, uncomplicated; Z90.2 Acquired absence of lung [part of]; R29.6 Repeated falls
CPT/HCPCS: 99285; 96360; 96361; 94640; 70450; 80053; 84484; 85025; 93005

== ENCOUNTER 2024-10-28 19:10 | Emergency (ER) | payer OTHER, SELFPAY ==
[2024-10-28 19:17] VITALS: BP 137/74
--- NOTE | 2024-10-28 21:57 | ED.GENMED ---
History of Present Illness
<Karen Randolph PA-C - Last Filed: 10/28/24 23:49>
General
Chief Complaint: Musculo-Skeletal Complaint
Source: patient
Exam Limitations: none
Time Seen by Provider: 10/28/24 20:41
Nursing documentation reviewed up to this point in time: agreed with
History of Present Illness
History of Present Illness:
Patient is a 69-year-old female with history HTN, HLD presenting for evaluation of right knee pain. Patient states that she was removing [place] decorations in the yard when she tripped and fell over a wire landing on her right knee. There was
no head strike or loss of conscious. She was able to get up without assistance. However�throughout the day the pain persisted began to worsen prompting visit to the emergency department. Patient did take one of her prescribed Vicodin at home with
not much improvement. Patient denies any numbness/tingling in right lower extremity. Patient denies any other associated injuries sustained during fall.
Past History
<Karen Randolph PA-C - Last Filed: 10/28/24 23:49>
Past History
ED Past Medical History: COPD, HTN, Hypercholesterolemia, Valvular disease, Psychiatric (Bipolar disorder, anxiety), Other (Bronchitis) and Other (Pneumonia 2018)
ED Past Surgical History: Gynecological (Hysterectomy) and Other (Left upper lobe lobectomy)
Social History
Tobacco: Smoker
Alcohol: None
Drug: None
Personal:
Living: alone
Employment: Not employed
Family History
Family History: Hypertension
Review of Systems
<Karen Randolph PA-C - Last Filed: 10/28/24 23:49>
Review of Systems
Allergies reviewed?: Yes
All Other Systems: ROS reviewed and negative except as documented in HPI and ROS
Phy Exam
<Karen Randolph PA-C - Last Filed: 10/28/24 23:49>
Physical Exam
Physical Exam:
Vitals: Patient's vital signs are stable. Afebrile
General: Patient is well appearing, no acute distress. Nontoxic appearing
Skin: Warm and dry, no rashes or lesions
Head: Normocephalic, atraumatic
Eyes: Sclera nonicteric.
Throat: Protecting airway
Neck: Normal ROM, no cervical spine tenderness
Cardiac: Regular rate
Pulm: Normal respiratory effort
Abdomen: No abdominal tenderness.
Extremities: Ecchymoses and edema to right knee with tenderness over the patella. No obvious deformity or step-off. Patient has full ability to flex and extend the right knee although with pain. Right hip and right ankle atraumatic and nontender
with full range of motion. No other bony tenderness of right lower extremity. Palpable DP and PT pulse. Sensation fully intact. Cap refill WNL
Neuro: AAOx3. Grossly intact
Psychiatric: Normal affect.
Course
<Karen Randolph PA-C - Last Filed: 10/28/24 23:49>
Orders/Labs/Results
Orders:
Orders
10/28/24 19:27
Knee, Right 4 or More Views [CR Knee- Right 4 Or More View*] Urgent
Comment:
Reason For Exam: fell directly onto knee, decreased ROM
10/28/24 21:45
Crutches-Treatment ONCE
Knee Immobilizer Right-Treatme ONCE
Acetaminophen [Tylenol] 650 mg PO NOW STA
Vital Signs
Initial and Last Documented VS:
Initial Vital Signs
Temp Pulse Resp BP Pulse Ox
98.7 F 85 16 137/74 97
10/28/24 19:17 10/28/24 19:17 10/28/24 19:17 10/28/24 19:17 10/28/24 19:17
Last Documented Vital Signs
Temp Pulse Resp BP Pulse Ox
98.7 F 86 18 135/70 97
10/28/24 19:17 10/28/24 22:29 10/28/24 22:29 10/28/24 22:29 10/28/24 22:29
<Aurelia Ochoa DO - Last Filed: 10/28/24 22:19>
Orders/Labs/Results
Orders:
Orders
10/28/24 19:27
Knee, Right 4 or More Views [CR Knee- Right 4 Or More View*] Urgent
Comment:
Reason For Exam: fell directly onto knee, decreased ROM
10/28/24 21:45
Crutches-Treatment ONCE
Knee Immobilizer Right-Treatme ONCE
Acetaminophen [Tylenol] 650 mg PO NOW STA
Vital Signs
Initial and Last Documented VS:
Initial Vital Signs
Temp Pulse Resp BP Pulse Ox
98.7 F 85 16 137/74 97
10/28/24 19:17 10/28/24 19:17 10/28/24 19:17 10/28/24 19:17 10/28/24 19:17
Last Documented Vital Signs
Temp Pulse Resp BP Pulse Ox
98.7 F 86 18 135/70 97
10/28/24 19:17 10/28/24 22:29 10/28/24 22:29 10/28/24 22:29 10/28/24 22:29
<Karen Randolph PA-C - Last Filed: 10/28/24 23:49>
MDM/Problems Addressed
Differential Diagnosis Includes:
Not limited to: Patellar fracture, patellar subluxation, meniscal injury, patellar contusion, etc.
MDM/Problems Addressed:
69-year-old female presents with right knee pain following mechanical fall earlier today. No head strike or loss of consciousness. Able to weight-bear with pain. Patient is stable vital signs on arrival. On exam�patient is well-appearing, in no
apparent distress. She does have tenderness, edema, ecchymoses to right knee. Although she has full ability to flex and extend her right knee. Right lower extremity neurovascularly intact. No evidence of other extremity injury. An x-ray of the
right knee was obtained which does show a nondisplaced transverse fracture of patella. Will place patient in knee immobilizer and discharged with crutches. Patient will follow-up with orthopedics for further evaluation/management. Advised ice,
rest, elevation, weightbearing as tolerated. Tylenol for pain. Patient stable for discharge home
Update: Patient did decline crutches as she has them at home.
Chronic conditions affecting care:
N/A
Acute Exacerbation and/or Progression of Chronic Illness:
N/A
<Karen Randolph PA-C - Last Filed: 10/28/24 23:49>
*Radiology
Radiology exam reviewed: preliminary read by ED provider (Reviewed by me-nondisplaced patellar fracture) and radiology read reviewed
*Pulse Oximetry
Patient hypoxic: no
*EKG
Interpreted by ED Provider?: NA
*Special Duty Nurse Interpretation
Rate: Special Duty Nurse- N/A
*Critical Care Note
Total Time (30-74mins, 75-104mins- exclusive of procedures): Not Applicable
ED Attending Note
<Karen Randolph PA-C - Last Filed: 10/28/24 23:49>
-
Portions of this chart may have been created with voice recognition software.� Occasional wrong word or��sound alike� substitutions may have occurred due to the inherent limitations of voice recognition software.
<Aurelia Ochoa DO - Last Filed: 10/28/24 22:19>
ED Attending Note
Patient seen and examined by attending physician: Yes
I performed the substantive portion of visit, reviewed & personally made and approve the management plan that is documented in note by myself or QUINTIN.: Yes
I performed a history and physical exam of patient and discussed management with resident, I reviewed resident's note and agree with documented findings and plan of care.: Yes
ED Attending Note:
69-year-old female presenting to the emergency department with right knee pain after a fall. Patient was cleaning up her [place] decorations and fell on a stake in the ground, landed directly on her right knee with subsequent pain and pain with
ambulating. Denies numbness or tingling to her leg. Denies additional injuries. Vitals are normal.
On exam patient is resting acute distress or discomfort. Significant swelling informed to creatinine, however pain with palpation and pain with flexion at the knee joint. Distal sensation intact. X-ray obtained prior to my assessment, consistent
with a nondisplaced patellar fracture. Patient subsequently placed in a knee immobilizer, notes she has crutches at home. Advise close outpatient orthopedic follow-up and pain control. Otherwise stable for discharge. Return precautions discussed
Discharge Plan
Departure
Patient Disposition: Home (Routine Discharge)
Date of Disposition: 10/28/24
Time of Disposition: 22:06
Patient with high blood pressure during this ER visit?: No
Condition: Good
Covid-19: Not Applicable
Discharge Problem:
Patella fracture
Instructions: Knee Immobilizer (DC), Patella Fracture ED
Prescriptions:
No Action
atorvastatin 40 MG tablet
40 mg PO DAILY
quetiapine [Seroquel] 400 MG tablet
800 mg PO HS
Rx Instructions:
patient also filled 200mg daily and 400mg bid on 05/31/23
buprenorphine HCl [Belbuca] 750 MCG film
750 mcg BC BID
Rx Instructions:
pdmp patient filled on 05/01/23 #60 [facility] [place] [facility]
clonazepam 0.5 MG tablet
0.5 mg PO TID
Rx Instructions:
pdmp patient order picker on 05/28/23 #90
escitalopram oxalate 10 MG tablet
10 mg PO BID
Rx Instructions:
no record in pharmacy
hydrochlorothiazide 12.5 MG tablet
12.5 mg PO DAILY
Rx Instructions:
06/06/23--no pharmacy records, [facility] records show tid/or as directed
gabapentin 800 mg Tablet
400 mg PO TID
hydrocodone-acetaminophen 7.5-325 mg tablet
1 tab PO TID PRN (Reason: severe pains)
Rx Instructions:
pdmp patient order picker on 05/28/23 #90
prednisone 20 mg tablet
40 mg PO DAILY Qty: 8 0RF
azithromycin [Zithromax] 250 mg tablet
250 mg PO DAILY 4 Days Qty: 4 0RF
benzonatate 100 mg capsule
100 mg PO TID PRN (Reason: cough) Qty: 20 0RF
prednisone 50 mg tablet
50 mg PO DAILY Qty: 2 0RF
lidocaine 5 % adhesive patch,medicated
1 patch topical DAILY Qty: 15 0RF
Rx Instructions:
remove after 12 hrs
Referrals:
Tc Palacios MD [Active] - Next open appointment
Cailin Bedolla CRNP [Family Provider] -
Activity Restrictions/Additional Instructions:
RETURN TO THE EMERGENCY DEPARTMENT WITH ANY INTRACTABLE PAIN, NUMBNESS/TINGLING IN RIGHT LOWER EXTREMITY, WORSENING IN CURRENT SYMPTOMS, OR ANY OTHER CONCERNS
-As discussed�your x-ray showed a fracture of your right patella
-You should keep your right leg and knee immobilizer. You can use crutches at home for assistance with weightbearing.
-You can take Tylenol as needed for discomfort. You should continue to apply ice to knee frequently throughout the next few days and elevate leg when able.
-Follow-up with orthopedics for further evaluation/management. The contact information has been provided for you above.
Monitor your symptoms closely return to the emergency department with any acute worsening/new symptoms or any other concerns.
Interventions
Interventions:
*Risk Screen - Suicide Last Done: 10/28/24 19:17
*General Assessment Last Done: 10/28/24 19:17
*Neglect/Abuse Screening Last Done: 10/28/24 19:17
ED- Fall Risk Assessment Last Done: 10/28/24 19:17
*ED COVID-19 Vaccine History Last Done: 10/28/24 19:17
*Nursing Disposition Last Done: 10/28/24 22:29
ED-Musculoskeletal Assessment Last Done: 10/28/24 21:20
Discharge Date and Time
Discharge Date/Time: 10/28/24 22:31
Print Language: [place]
[2024-10-28] MEDS: TYLENOL 650 MG PO (21:59)
[2024-10-28 22:29] VITALS: BP 135/70
== END 2024-10-28 22:31 | disposition home or self-care (01) ==
LOC: EMR 19:10
PROVIDERS: EMERGENCY PHYSICIAN Student in an Organized Health Care Education/Training Program; FAMILY PHYSICIAN Nurse Practitioner Family
DX: S82.001A Unspecified fracture of right patella, initial encounter for closed fracture (principal); S80.01XA Contusion of right knee, initial encounter; W18.09XA Striking against other object with subsequent fall, initial encounter; Y93.89 Activity, other specified; I10 Essential (primary) hypertension; E78.00 Pure hypercholesterolemia, unspecified; F31.9 Bipolar disorder, unspecified; F41.9 Anxiety disorder, unspecified; J44.9 Chronic obstructive pulmonary disease, unspecified; M19.90 Unspecified osteoarthritis, unspecified site; F32.A Depression, unspecified; F17.200 Nicotine dependence, unspecified, uncomplicated; Z87.01 Personal history of pneumonia (recurrent); Z90.2 Acquired absence of lung [part of]
CPT/HCPCS: 99283; 29505; 73564

== ENCOUNTER 2025-03-31 10:52 | Emergency (ER) | payer OTHER, SELFPAY ==
[2025-03-31 10:56] VITALS: BP 160/103
--- NOTE | 2025-03-31 11:45 | EDRN ---
Addendum entered by Leslie Richardson RN 03/31/25 11:47:
Pain waking pt up during night. Pt tried heat and cold. Pt using nerve Nerve for pain.
Original Note:
Pt states she was at a barbecue and stepped off and twisted her ankle under. Pt has been awake by 3 nights. Pt injured her ankle a week ago yesterday.
[2025-03-31 11:46] VITALS: BMI 21.9
--- NOTE | 2025-03-31 11:54 | EDRN ---
Melvi Nick PA student in room w/ pt at this time
--- NOTE | 2025-03-31 12:14 | ED.MUSCINJ ---
HPI-Injury
<SASHA Adair - Last Filed: 03/31/25 14:45>
General
Chief Complaint: Musculo-Skeletal Complaint
Source: patient
Exam Limitations: none
Time Seen by Provider: 03/31/25 11:34
History of Present Illness-Injury
Initial Injury comments:
This is a 69 y/o F with a PMH of HTN, HLD, COPD, tobacco use, lumbar pain, chronic nerve pain, s/p patellar fracture in 09/2024 who presents for increasing R ankle pain x 1 week. This occurred at a [facility] last week where she missed a step while walking
and inverted her right ankle. It has been increasing in pain ever since. She has tried ice and heat without relief. She tried OTC Nerve which did help. This is a sharp shooting pain that is mostly localized to the ankle but does radiate up her leg
at times. It's currently a 7/10 pain but has been a 10/10 in the past. It wakes her up in the middle of the night. She endorses some intermittent numbness and tingling that occurs mostly with exertion but can occur at night. She also endorses
swelling. She denies fevers, decreased ROM or sensation.
She denies a PMH of DM, gout, osteomyelitis, plantar fascitis. She smokes < 1 pack per day. Denies alcohol or drug use.
Past History
<SASHA Adair - Last Filed: 03/31/25 14:45>
Past History
ED Past Medical History: COPD, HTN, Hypercholesterolemia, Valvular disease, Psychiatric (Bipolar disorder, anxiety), Other (Bronchitis) and Other (Pneumonia 2018)
ED Past Surgical History: Gynecological (Hysterectomy) and Other (Left upper lobe lobectomy)
Social History
Tobacco: Smoker
Alcohol: None
Drug: None
Personal:
Living: alone
Employment: Not employed
Family History
Family History: Hypertension
Phy Exam
<SASHA Adair - Last Filed: 03/31/25 14:45>
General Physical Exam
General Presentation: well appearing and no apparent distress
General age: appears stated age
General Skin: dry and cool
General Habitus: normal
General Mental: alert
Musculoskeletal Exam
Musculoskeletal Exam: full ROM, no edema and neuro vasc intact
Injury Course
<SASHA Adair - Last Filed: 03/31/25 14:45>
Orders/Labs/Results
Orders:
Orders
03/31/25 11:18
CR Ankle - Right Min 3 Views * Urgent
Comment:
Reason For Exam: pain, injury
<Bennie Rizvi MD - Last Filed: 04/01/25 13:42>
Orders/Labs/Results
Orders:
Orders
03/31/25 11:18
CR Ankle - Right Min 3 Views * Urgent
Comment:
Reason For Exam: pain, injury
<SASHA Adair - Last Filed: 03/31/25 14:45>
MDM/Problems Addressed
MDM/Problems Addressed:
This is a 69 y/o F presenting with R ankle pain x 1 week after injury. No fever, loss of sensation or ROM. MSK exam benign. Imaging revealed no fracture. Findings consistent with ankle sprain.
<SASHA Adair - Last Filed: 03/31/25 14:45>
*Critical Care Note
Total Time (30-74mins, 75-104mins- exclusive of procedures): Not Applicable
ED Attending Note
<SASHA Adair - Last Filed: 03/31/25 14:45>
-
Portions of this chart may have been created with voice recognition software.� Occasional wrong word or��sound alike� substitutions may have occurred due to the inherent limitations of voice recognition software.
<Bennie Rizvi MD - Last Filed: 04/01/25 13:42>
ED Attending Note
Patient seen and examined by attending physician: Yes
ED Attending Note:
Patient presents ED secondary to persistent pain after rolling her right ankle while attending a barbecue 1 week ago. Denies any other injuries. Denies loss of sensation or weakness. Patient has been able to ambulate with mild discomfort.
Patient has been icing the site of injury and taking [id number] medications, without improvement in symptoms.
Physical Exam
General: no apparent distress, not acutely ill. afebrile
Head: nc/at. eomi
Neck: supple. no meningeal signs
Neuro: alert and oriented x 3. no focal neurological deficits
Skin: no rash
Psychiatric: well kept. interactive and cooperative
Extremities: right ankle - mild lateral malleolus tenderness palpation, without erythema/warmth/ecchymosis. no deformity noted. base of fifth metatarsal nontender to palpation.
X-ray report reviewed and discussed with patient.
History and exam consistent with likely mild ankle sprain. Otherwise patient is neurovascularly intact. Patient will be provided with walking boot and referred to her orthopedic surgeon for reevaluation.
Discharge Plan
Departure
Patient Disposition: Home (Routine Discharge)
Date of Disposition: 03/31/25
Time of Disposition: 12:44
Patient with high blood pressure during this ER visit?: Yes
Discharge Problem:
Ankle sprain
Instructions: Sprain (DC), Walking Boot
Prescriptions:
No Action
atorvastatin 40 MG tablet
40 mg PO DAILY
quetiapine [Seroquel] 400 MG tablet
800 mg PO HS
Rx Instructions:
patient also filled 200mg daily and 400mg bid on 05/31/23
buprenorphine HCl [Belbuca] 750 MCG film
750 mcg BC BID
Rx Instructions:
[facility] patient filled on 05/01/23 #[facility]
clonazepam 0.5 MG tablet
0.5 mg PO TID
Rx Instructions:
pd[facility] patient chart picker on 05/28/23 #90
escitalopram oxalate 10 MG tablet
10 mg PO BID
Rx Instructions:
no record in pharmacy
hydrochlorothiazide 12.5 MG tablet
12.5 mg PO DAILY
Rx Instructions:
06/06/23--no pharmacy records, [facility] records show tid/or as directed
gabapentin 800 mg Tablet
400 mg PO TID
hydrocodone-acetaminophen 7.5-325 mg tablet
1 tab PO TID PRN (Reason: severe pains)
Rx Instructions:
[facility] patient chart picker on 05/28/23 #90
prednisone 20 mg tablet
40 mg PO DAILY Qty: 8 0RF
azithromycin [Zithromax] 250 mg tablet
250 mg PO DAILY 4 Days Qty: 4 0RF
benzonatate 100 mg capsule
100 mg PO TID PRN (Reason: cough) Qty: 20 0RF
prednisone 50 mg tablet
50 mg PO DAILY Qty: 2 0RF
lidocaine 5 % adhesive patch,medicated
1 patch topical DAILY Qty: 15 0RF
Rx Instructions:
remove after 12 hrs
Referrals:
Cailin Bedolla CRNP [Family Provider, Family Practice]
Activity Restrictions/Additional Instructions:
As discussed, please follow-up with your orthopedic surgeon for further evaluation and treatment.
Interventions
Interventions:
*Risk Screen - Suicide Last Done: 03/31/25 10:57
*General Assessment Last Done: 03/31/25 11:47
*Neglect/Abuse Screening Last Done: 03/31/25 10:57
*ED- Fall Risk Assessment Last Done: 03/31/25 11:47
*ED COVID-19 Vaccine History Last Done: 03/31/25 11:47
*Nursing Disposition Last Done: 03/31/25 13:00
ED-Musculoskeletal Assessment Last Done: 03/31/25 11:49
Discharge Date and Time
Discharge Date/Time: 03/31/25 13:00
Print Language: ESTONIAN
[2025-03-31 12:23] VITALS: BP 154/78
== END 2025-03-31 13:00 | disposition home or self-care (01) ==
LOC: EMR 10:52
PROVIDERS: EMERGENCY PHYSICIAN Emergency Medicine; FAMILY PHYSICIAN Nurse Practitioner Family
DX: S93.401A Sprain of unspecified ligament of right ankle, initial encounter (principal); R20.0 Anesthesia of skin; R20.2 Paresthesia of skin; M79.89 Other specified soft tissue disorders; X50.1XXA Overexertion from prolonged static or awkward postures, initial encounter; Y92.89 Other specified places as the place of occurrence of the external cause; I10 Essential (primary) hypertension; E78.00 Pure hypercholesterolemia, unspecified; J44.9 Chronic obstructive pulmonary disease, unspecified; I38 Endocarditis, valve unspecified; M54.50 Low back pain, unspecified; G89.29 Other chronic pain; F17.210 Nicotine dependence, cigarettes, uncomplicated; Z87.01 Personal history of pneumonia (recurrent); Z90.2 Acquired absence of lung [part of]
CPT/HCPCS: 99283; 29515; 73610

== ENCOUNTER → 2025-07-15 15:38 | Outpatient (REF) | payer OTHER, SELFPAY | LOC: RCS 15:38 | PROVIDERS: ATTENDING PHYSICIAN Internal Medicine; FAMILY PHYSICIAN Nurse Practitioner Family | DX: M48.062 Spinal stenosis, lumbar region with neurogenic claudication (principal) | CPT/HCPCS: 93005 ==

== ENCOUNTER 2025-08-14 13:28 | Inpatient (IN) | payer OTHER, SELFPAY ==
[2025-08-14] VITALS (10 sets, daily range): BP systolic 123–190; BP diastolic 66–91; BMI 20.7
--- NOTE | 2025-08-14 10:16 | ED.GENMED ---
History of Present Illness
General
Chief Complaint: Breathing Problem
Source: patient and family
Time Seen by Provider: 08/14/25 10:02
History of Present Illness
History of Present Illness:
70-year-old female with past medical history of COPD, hypertension, hyperlipidemia, valvular disease presenting to the emergency department for evaluation after she was diagnosed with an upper respiratory infection and COPD exacerbation around a
week and a half ago, treated with a course of doxycycline, prednisone taper and cough suppressant which she reports completing the taper and near completion of the doxycycline but without any relief of symptoms noting this morning she felt increased
shortness of breath and difficult time speaking in full sentences. Daughter states that that time of my examination patient is able to speak in full sentences now after having oxygen placed on her on arrival. It was noted that patient's oxygen
saturation in triage was less than 90% on room air. Patient normally does not require O2. She follows with pulmonary as an outpatient and is normally on albuterol and trilogy which she reports good compliance with. She does note that another
family member had been sick with similar URI-like symptoms but is fully resolved. Patient denies any chest pain, palpitations, diaphoresis, lower extremity edema, pleurisy or hemoptysis. She still notes smoking cigarettes and had been previously
smoking more than a pack per day but notes now trying to quit and that she is below a full pack per day.
Past History
Past History
ED Past Medical History: COPD, HTN, Hypercholesterolemia, Valvular disease, Psychiatric (Bipolar disorder, anxiety), Other (Bronchitis) and Other (Pneumonia 2018)
ED Past Surgical History: Gynecological (Hysterectomy) and Other (Left upper lobe lobectomy)
Social History
Tobacco: Smoker
Alcohol: None
Drug: None
Personal:
Living: alone
Employment: Not employed
Family History
Family History: Hypertension
Review of Systems
Review of Systems
All Other Systems: ROS reviewed and negative except as documented in HPI and ROS
Phy Exam
Physical Exam
Physical Exam:
GENERAL: Alert , in no apparent distress
HEAD: Normocephalic atraumatic
EYE: Clear conjunctiva
NECK: Supple, no significant adenopathy.
ENT: o/p clr, mmm.
CARDIAC: borderline tachycardic rate and rhythm
LUNGS: Right posterior lung barba diminished both at the apices and base compared to the left, slight wheeze noted, left lung is mostly cleared with scattered wheeze, no rales or rhonchi. No acute respiratory distress and able to speak in full
sentences, currently on 2 L nasal cannula with O2 saturation between 94 and 98%
ABDOMEN: Soft, without focal tenderness, no r/g, no cvat
NEUROLOGICAL: Alert and oriented
SKIN: Warm and dry, skin intact.
MUSCULOSKELETAL: No edema, well perfused.
PSYCH: Normal and appropriate interaction.
Scores
Heart Failure Risk
Heart Failure Risk Score: Yes
History of Stroke or TIA: No
History of intubation for respiratory distress: No
Heart rate on ED arrival >/= 110: No
SaO2 <90% on arrival on room air: Yes
HR >/=110 during 3min walk test (or too ill to perform test): Yes
ECG has acute ischemic changes: No
Urea >/=12mmol/L (BUN 33.6mg/dL): No
Serum CO2>/=35mmol/L: No
Troponin I or T elevated to ME Level (0.4mg/dL): No
NT-proBNP >/=5,000ng/L (5,000pg/ml): No
HF Risk Score: 3
Admission Status: HIGH RISK 15.9% Consider SNF treatment or admission to hospital
Heart Score for Chest Pain Patients
STEMI patient?: Not applicable
Withdrawal Assessment of Alcohol
Withdrawal Assessment Completed?: Not applicable
Course
Orders/Labs/Results
Orders:
Orders
08/14/25 09:30
Electrocardiogram (*1) Urgent
Reason for Study: Shortness of Breath
EKG- Treatment ONCE
08/14/25 10:15
Ipratropium/Albuterol Sulfate [Duoneb] 3 ml INH R NOW ONE
MethylPREDNISolone PF [Solu-Medrol Pf] 40 mg IV NOW STA
CR Chest - 2 Views Urgent
Comment:
Reason For Exam: SOB, cough, hx COPD
08/14/25 10:19
Nicotine [Nicoderm Transdermal] 14 mg TRANSDERM NOW STA
08/14/25 10:34
COVID-19 Antigen Urgent
Source: Nasal Swab
Complete Blood Count/With Diff Urgent
Comprehensive Metabolic Panel Urgent
NT-proBNP Urgent
Troponin I Urgent
Influenza A+B Rapid Molecular Urgent
KELBY Source: Nasal Swab
Specimen Description:
08/14/25 11:32
Consult Interventional Radiology [IRAD CONSULT] Urgent
Consulting Provider: Nikko Ch
Was physician already notified: Yes
Procedure being ordered, including laterality if applicable: Chest tube for right pneumothorax
Acknowledgement that appropriate orders are entered: Yes
08/14/25 12:56
Admit/Transfer Patient As Directed
Co-Sign Provider:
Level of Care: Inpatient admission
Assign to:: Medical/Surgical
Physician / Group: Lalo Todd - Hospitalists
Diagnosis: Large right-sided pneumothorax with collapse of the right lung
Reason for Hospitalization: Large right-sided pneumothorax with collapse of the right lung - Chest tube
Expected length of stay greater than two midnights?: Yes
ELOS- Estimated Length of Stay in days: 3
I certify the patient meets the requirements for IP care: Yes
PRN Pain Medication Management As Directed
May give lesser potent ordered pain med per pt: Yes
preference::
Protocol:: Medication orders for pain may be administered in a
manner that supports deferring to patient preference
when the pt is:
- Requesting an ordered lesser potent pain medication.
Least to most potent pain medications are defined
as: acetaminophen < NSAID < tramadol < opioids
(morphine, oxycodone, hydromorphone).
- Requesting a lesser dose of the same medication IF
ORDERED.
- Requesting a less intrusive route of administration
if both routes are prescribed by the provider (PO <
IV).
08/14/25 12:57
Code Status As Directed
Resuscitation Status: Full Code
Abnormal Lab Results
08/14/25
10:34
MPV 10.6 H fL
(7.4-10.4)
Abs Immat Gran (auto) 0.1 H 10^3/uL
(0-0.05)
Immature Gran % 1.3 H %
(0-0.5)
Chloride 110 H mmol/L
(98-107)
Glucose 120 H mg/dl
(70-99)
ALT 37 H U/L
(0-35)
Total Protein 6.1 L g/dl
(6.3-8.2)
08/14/25 10:34
08/14/25 10:34
Vital Signs
Initial and Last Documented VS:
Initial Vital Signs
Temp Pulse Resp BP Pulse Ox
98.3 F 102 18 190/91 90
08/14/25 09:24 08/14/25 09:24 08/14/25 09:24 08/14/25 09:24 08/14/25 09:24
Last Documented Vital Signs
Temp Pulse Resp BP Pulse Ox
98.3 F 74 17 165/80 91
08/14/25 09:24 08/14/25 15:45 08/14/25 15:45 08/14/25 15:45 08/14/25 14:00
MDM/Problems Addressed
Differential Diagnosis Includes:
COPD with acute exacerbation
CHF
Pneumonia
PTX
Bronchitis
COVID/flu/other viral syndrome
PE considered but thought to be less likely especially given patient's abnormal lung exam
Cardiomyopathy
Valvular dysfunction
MDM/Problems Addressed:
70-year-old female presenting to the ER for evaluation of continued shortness of breath and cough in the setting of recently being started on antibiotics and steroid tapers but without any relief. On arrival to the ER patient found to be hypoxic,
already on 2 L nasal cannula at time of my exam with good response. She has significantly diminished lung sounds on the right, will obtain chest x-ray to further evaluate. Labs ordered. Will treat with a DuoNeb and IV steroid. Anticipate
admission.
Chronic conditions affecting care: COPD
Acute Exacerbation and/or Progression of Chronic Illness: COPD
*Radiology
Radiology exam reviewed: preliminary read by ED provider (Patient's chest x-ray concerning for pneumothorax)
*Pulse Oximetry
SaO2: 90
Oxygen Mode of Delivery: Room air
Patient hypoxic: yes
*EKG
Heart Rate: 96
Rate: normal
Rhythm: sinus
Ischemia: no ischemia
*Manager Wound Care Interpretation
Rate: normal
Heart Rate: 97
Rhythm: sinus
*Critical Care Note
Total Time (30-74mins, 75-104mins- exclusive of procedures): 30
comment:
Critical care statement: A total of 30 minutes of critical care time was provided for this patient. This includes management of unstable vital signs, evaluation of the patient at bedside, reviewing the patient's pertinent medical records, discussion
with consultants, review of old EKGs and review of pertinent medical records. This time with separate from time utilized to perform the aforementioned documented procedures
Data Reviewed
Review of Other/Old Records Reveals: Labs and Records
Patient Management
Discussion with other providers: Hospitalist and Operating Theatre Technician
Escalation/DeEscalation of care consider admission/obs:
Patient's two-view chest x-ray shows a moderate to large right-sided pneumothorax. Notified patient of this finding and she now tells me that she previously had a pneumothorax on the left side that required surgical repair to prevent the
pneumothorax from happening again. I did notify on-call interventional radiologist about the finding and need for chest tube. They will take the patient to IR for this to be completed. Hospitalist team was notified and accepts for continued
evaluation and treatment. Patient continues to maintain her oxygen saturation between 96 and 98% on 2 L nasal cannula.
ED Attending Note
-
Portions of this chart may have been created with voice recognition software.� Occasional wrong word or��sound alike� substitutions may have occurred due to the inherent limitations of voice recognition software.
Discharge Plan
Departure
Patient Disposition: Admit
Date of Disposition: 08/14/25
Time of Disposition: 11:40
Presentation/result/management discussed w/ accepting MD/DO: Hospitalist
Discharge Problem:
Pneumothorax on right
Interventions
Interventions:
*Risk Screen - Suicide Last Done: 08/14/25 09:24
*General Assessment Last Done: 08/14/25 11:33
*Neglect/Abuse Screening Last Done: 08/14/25 09:24
*ED- Fall Risk Assessment Last Done: 08/14/25 11:33
*ED COVID-19 Vaccine History Last Done: 08/14/25 11:33
*ED Influenza Vaccine History Last Done: 08/14/25 11:33
ED- Cardiac Assessment Last Done: 08/14/25 11:33
ED- Pulmonary Assessment Last Done: 08/14/25 11:33
[2025-08-14] MEDS: DUONEB 3 ML INH (10:32)
[2025-08-14] MEDS: NICODERM TRANSDERMAL 14 MG TRANSDERM (10:32)
[2025-08-14] MEDS: SOLU-MEDROL PF 40 MG IV (10:32)
[2025-08-14 10:44] LABS: Hematocrit 39.5 % (37.0-47.0); Hemoglobin 13.4 g/dL (12.0-16.0); Mean Corp Hgb Conc. 33.9 g/dL (33.0-37.0); Mean Corpuscular Volume 89.2 fL (81.0-99.0); Nucleated Red Blood Cells % 0 %; Platelet Count 269 10^3/uL (130-400); Red Cell Dist. Width 13.5 % (11.5-14.5)
[2025-08-14 10:58] LABS: COVID-19 Antigen Negative (Negative)
[2025-08-14 11:05] LABS: Troponin I 0.019 ng/ml
[2025-08-14 11:10] LABS: ALT (SGPT) 37 U/L (0-35); AST (SGOT) 26 U/L (14-36); Albumin 3.9 g/dl (3.5-5.0); Alkaline Phosphatase 68 U/L (38-126); Blood Urea Nitrogen 16 mg/dl (7-17); Calcium 10.0 mg/dl (8.4-10.2); Carbon Dioxide 28 mmol/L (22-30); Chloride 110 mmol/L (98-107); Estimated Creatinine Clearance 73 ml/min; Glucose 120 mg/dl (70-99); Potassium 3.6 mmol/L (3.5-5.1); Sodium 142 mmol/L (135-145); Total Protein 6.1 g/dl (6.3-8.2); eGFR > 60.00
--- NOTE | 2025-08-14 12:45 | HPS.HSE ---
Family Physician
-
Family Physician: NOT KNOW UNKNOWN - PT DOES
Chief Complaint
-
SOB
History of Present Illness
70 y/o F with history of COPD, HTN, HLD, Valvular disease presents to ER with ongoing SOB. She was evaluated 1 week ago by PCP for SOB and felt to have COPD exacerbation. Was started on steroids, doxycycline and supportive care which she completed.
She reports no improvement in symptoms. Describes SOB And difficulty completing full sentences. Denies chest pain, fever/chills. In ER, was 90% on RA, placed on 2L NC. CXR revealed R sided pneumothorax for which IR Was consulted for chest tube.
Patient admits to ongoing smoking of 1 pack daily. Follows with Dr. Taisha Pro.
Medical History
Past Medical History
Past Medical History: Reports Other (COPD, HTN, HLD, Valvular disease)
Past Surgical History: Reports Other (Gynecological (Hysterectomy) and Other (Left upper lobe lobectomy))
Social History
Tobacco: Smoker (1 PPD)
Alcohol: None
Drug: None
Living: With Family
Employment: Employed
Family History
Family History: Not pertinent
Allergies / Home Medications
Allergies reflects when Allergies were last updated in [employer].
Home Medications with original date entered in [employer]
Allergy/Medication List:
Allergies
Allergy/AdvReac Type Severity Reaction Status Date / Time
No Known Allergies Allergy Verified 10/28/24 19:17
Home Medications
atorvastatin 40 mg tablet 40 mg PO DAILY High cholesterol 10/25/20
buprenorphine HCl 750 mcg buccal film (Belbuca) 750 mcg BC BID Pain 10/25/20
hydrocodone 7.5 mg-acetaminophen 325 mg tablet 1 tab PO BID 06/06/23
albuterol sulfate 90 mcg/actuation aerosol inhaler 2 puff inhalation R Q4HPRN PRN sob/wheezing 08/14/25
clonazepam 1 mg tablet 1 mg PO BID@0800,1200 08/14/25
duloxetine 60 mg capsule,delayed release 60 mg PO DAILY 08/14/25
famotidine 20 mg tablet 20 mg PO HS 08/14/25
fluticasone fur. 100 mcg-umeclid 62.5 mcg-vilant 25 mcg inhalat.powder (Trelegy Ellipta) 1 inh inhalation R DAILY 08/14/25
gabapentin 300 mg capsule 600 mg PO BID 08/14/25
omeprazole 40 mg capsule,delayed release 40 mg PO DAILY 08/14/25
quetiapine 200 mg tablet 400 mg PO HS 08/14/25
Review of Systems
-
A 12 point ROS was completed and negative except as noted: Yes
Physical Exam
Vital Signs
Vital Signs
Temp Pulse Resp BP Pulse Ox
98.3 F 88 19 165/82 98
08/14/25 09:24 08/14/25 11:30 08/14/25 11:30 08/14/25 11:00 08/14/25 11:33
Physical Exam
General: No Apparent Distress
HEENT: NormoCephalic and Anicteric
Respiratory: Clear and Other (decreased breath sounds RUL); No Wheezes
Cardiac: S1/S2 and Regular Rhythm
Neuro: AO x 3
Psych: Calm
Laboratory Results
-
08/14/25 10:34
08/14/25 10:34
Laboratory Results
Total Bilirubin 0.4 mg/dl (0.2-1.3) 08/14/25 10:34
AST 26 U/L (14-36) 08/14/25 10:34
ALT 37 U/L (0-35) H 08/14/25 10:34
Alkaline Phosphatase 68 U/L (38-126) 08/14/25 10:34
Troponin I 0.019 ng/ml 08/14/25 10:34
Data Reviewed
-
Diagnostic Radiology: Report Reviewed by me
Lab Data: Labs Reviewed by me
Impression/Plan
-
Assessment:
SOB
Large right-sided pneumothorax with collapse of the right lung
Acute hypoxic respiratory insufficiency
- noted prior history of LUDMILA pneumothorax with lobectomy in
- urgent IR consultation for chest tube
- Pulm consultation
Recent COPD exacerbation
- completed doxy and steroid course
- supportive care, cough suppressants
Essential HTN
- observe off BP Meds
HLD - statin
Valvular disease
Tobacco abuse
- nicotine patch
- cessation counselling provided
Anxiety/Depression
- continue meds
DVT ppx: Lovenox
Code: Full
--- NOTE | 2025-08-14 13:00 | EDRN ---
Patient ambulated to the restroom and back in bed resting comfortably, was able to ambulate without difficulty
--- NOTE | 2025-08-14 14:15 | EDRN ---
Patient to IR, daughter updated
[phone]
[2025-08-14] MEDS: LOVENOX SC (17:45)
[2025-08-14] MEDS: ULTRAM 50 MG PO (17:49)
--- NOTE | 2025-08-14 18:38 | PTCARENOTE ---
Received pt from ED, VSS, AAOx3, pt pulled over to bed from stretcher per bedrest x 2 hours per RN. Right sided chest tube connected to wall suction with 2mL of yellow output in tube. Admission complete, dinner ordered, pain medication administered.
Pt resting comfortably in bed with call parada at side, oriented to call parada and room.
[2025-08-14] MEDS: BELBUCA BUCCAL ×2 (19:31)
[2025-08-14] MEDS: NEURONTIN 600 MG PO (19:32)
[2025-08-14] MEDS: NORCO 7.5/325 1 TABLET PO (19:32)
[2025-08-14] MEDS: SEROQUEL 400 MG PO (21:32)
[2025-08-14] MEDS: PEPCID 20 MG PO (21:32)
[2025-08-14] MEDS: TYLENOL 650 MG PO (21:38)
[2025-08-15 02:58] VITALS: BP 123/66
[2025-08-15] MEDS: ULTRAM 50 MG PO ×2 (05:40→19:58)
[2025-08-15 07:00] VITALS: BP 169/90
--- NOTE | 2025-08-15 08:32 | W.PN.GENERIC ---
Assessment / Plan
-
CXR from this am was reviewed by me. The chest tube is in good position, there is no PTX, or subcutaneous emphysema, and a minimal right effusion. There is 3cc of fluid in the Pleurvac, no air leak demonstrated. All VSS.
Keep chest tube to low wall suction for now. Will continue to monitor and work towards chest tube removal along with pulmonology.
Physician Progress Note
Subjective
Pt laying in bed in NAD. She denies chest pain, SOB, and cough. Her only complaint is a mild sore throat. She reports eating well and has gotten up out of bed to urinate.
Objective
Vital Signs
Temp Pulse Resp BP Pulse Ox
97.4 F 62 16 123/66 94
08/15/25 02:58 08/15/25 02:58 08/15/25 02:58 08/15/25 02:58 08/15/25 02:58
[2025-08-15 08:36] LABS: Hematocrit 40.8 % (37.0-47.0); Hemoglobin 13.2 g/dL (12.0-16.0); Mean Corp Hgb Conc. 32.4 g/dL (33.0-37.0); Mean Corpuscular Volume 92.3 fL (81.0-99.0); Platelet Count 272 10^3/uL (130-400); Red Cell Dist. Width 13.8 % (11.5-14.5)
[2025-08-15] MEDS: PROTONIX 40 MG PO (08:40)
[2025-08-15] MEDS: LIPITOR 40 MG PO (08:40)
[2025-08-15] MEDS: CYMBALTA DELAYED RELEASE 60 MG PO (08:41)
[2025-08-15] MEDS: NEURONTIN 600 MG PO ×2 (08:41→19:57)
[2025-08-15] MEDS: BELBUCA 150 MCG BUCCAL (08:41)
[2025-08-15] MEDS: KLONOPIN 1 MG PO ×2 (08:41→11:59)
[2025-08-15] MEDS: BELBUCA 600 MCG BUCCAL (08:41)
[2025-08-15] MEDS: NORCO 7.5/325 1 TABLET PO ×2 (08:41→19:56)
[2025-08-15 08:49] LABS: Blood Urea Nitrogen 14 mg/dl (7-17); Calcium 9.7 mg/dl (8.4-10.2); Carbon Dioxide 30 mmol/L (22-30); Chloride 107 mmol/L (98-107); Estimated Creatinine Clearance 73 ml/min; Glucose 86 mg/dl (70-99); Potassium 3.9 mmol/L (3.5-5.1); Sodium 140 mmol/L (135-145); eGFR > 60.00
--- NOTE | 2025-08-15 09:26 | CON.PUL ---
Consultation
Consultation Request
Date/Time Consultation Requested: 08/15/2025-8 AM
Date/Time Consultation Performed: 08/15/2025-8:30 AM
Requesting Provider: Hospitalist
Performing Provider: Dr. Roberson
Reason for Consultation: Pneumothorax
Medical History
-
Chief Complaint: Shortness of breath/pneumothorax
History of Present Illness:
70-year-old smoking female with history of underlying COPD, hypertension, hyperlipidemia, and distant history of left upper lobectomy/surgery in the for 'lung collapse' presented with increasing shortness of breath for 1 week felt to be COPD
exacerbation unresponsive to steroids doxycycline and came to the emergency room and found to have large right-sided pneumothorax-pulmonary consulted for COPD/pneumothorax 08/15/2025. Patient states that once the chest tube was then her shortness
of breath improved significantly. She did not have any chest congestion, productive cough, pleurisy, mopped assist, abdominal pain, nausea, leg swelling or focal weakness. She continues to smoke a pack of cigarettes daily until she came into the
hospital.
Past Medical History
Past Medical History: None (COPD. Cigarette smoker-1 pack/day. Hypertension. Hyperlipidemia. Valvular disease. Hysterectomy. Left upper lobe surgery-lobectomy versus pneumothorax related .)
Social History
Tobacco: Smoker ([id number]-had quit for 10 years but now back to 1 pack a day)
Alcohol: None
Drug: None
Personal:
Living: With Family
Occupational Exposures: No known asbestos exposure
Environmental Exposures: No known tuberculosis exposure
Family History
Family History: Reviewed & Not Pertinent
Allergies / Home Medications
Allergies
Allergy/AdvReac Type Severity Reaction Status Date / Time
No Known Allergies Allergy Verified 10/28/24 19:17
Home Medications
�Medication �Instructions �Recorded �Confirmed �Last Taken �Type
atorvastatin 40 mg tablet 40 mg PO DAILY High cholesterol 10/25/20 08/14/25 08/13/25 History
buprenorphine HCl 750 mcg buccal 750 mcg BC BID Pain 10/25/20 08/14/25 08/13/25 History
film ([place])
hydrocodone 7.5 mg-acetaminophen 1 tab PO BID 06/06/23 08/14/25 08/13/25 History
325 mg tablet
albuterol sulfate 90 mcg/actuation 2 puff inhalation R Q4HPRN PRN 08/14/25 08/14/25 Unknown History
aerosol inhaler sob/wheezing
clonazepam 1 mg tablet 1 mg PO BID@0800,1200 08/14/25 08/14/25 08/13/25 History
duloxetine 60 mg capsule,delayed 60 mg PO DAILY 08/14/25 08/14/25 08/13/25 History
release
famotidine 20 mg tablet 20 mg PO HS 08/14/25 08/14/25 08/13/25 History
fluticasone fur. 100 mcg-umeclid 1 inh inhalation R DAILY 08/14/25 08/14/25 08/13/25 History
62.5 mcg-vilant 25 mcg
inhalat.powder (Trelegy Ellipta)
gabapentin 300 mg capsule 600 mg PO BID 08/14/25 08/14/25 08/13/25 History
omeprazole 40 mg capsule,delayed 40 mg PO DAILY 08/14/25 08/14/25 08/13/25 History
release
quetiapine 200 mg tablet 400 mg PO HS 08/14/25 08/14/25 08/13/25 History
Review of Systems
-
Unable to Obtain full review of systems at this time due to: Other (Per HPI)
Vitals / Labs / Diagnostic Testing
Vital Signs
Temp Pulse Resp BP Pulse Ox
97.4 F 62 16 123/66 94
08/15/25 02:58 08/15/25 02:58 08/15/25 02:58 08/15/25 02:58 08/15/25 02:58
Lab Data
08/15/25 08:13
08/15/25 08:13
Microbiology
08/14/25 10:34 Nasal Swab Influenza Types A & B (GERALDINE) - Final
Negative for Influenza A & B, NAAT
Negative results must be combined with clinical observations
and patient history.
Nucleic Acid Amplification test (NAAT)performed on the
[employer] platform.
Diagnostic Testing:
Physical Exam
-
Exam:
Well-nourished and well-developed in no apparent distress
HEENT-atraumatic, normocephalic
Neck-supple, no JVD, no bruit
Heart-regular rate and rhythm-no murmurs, rubs or gallops
Chest with diminished breath sounds, prolonged expiratory time, no wheezes or crackles
Back without tenderness
Abdomen-soft, nontender, nondistended, no hepatosplenomegaly
Extremities-no cyanosis, clubbing, edema and good peripheral pulses
Integument-intact, no rashes, lesions or ecchymosis
Neurology-alert and oriented, nonfocal motor and sensory exam
Assessment
-
70-year-old smoking female with history of underlying COPD, hypertension, hyperlipidemia, and distant history of left upper lobectomy/surgery in the for 'lung collapse' presented with increasing shortness of breath for 1 week felt to be COPD
exacerbation unresponsive to steroids doxycycline and came to the emergency room and found to have large right-sided pneumothorax-pulmonary consulted for COPD/pneumothorax 08/15/2025.
Large right pneumothorax
Status post chest tube 08/14/2025-interventional radiology
Recent COPD exacerbation
Conditions present prior to admission:
COPD-last saw jewel hole driller-Dr. Sumner-[facility] about 5 years ago-maintained on Trelegy and albuterol, no oxygen
Cigarette smoker-1 pack/day.
Multiple pulmonary nodules-stable 04/12/2023 through 09/17/2024
Hypertension.
Hyperlipidemia.
Valvular disease.
Hysterectomy. Left upper lobe surgery-lobectomy versus pneumothorax related 1990s.
Plan
Respiratory decompensation due to pneumothorax in this patient with underlying COPD
Supplemental oxygen as needed-supplemental oxygen should help with nitrogen washout and help with pneumothorax resolution
Nebulizers if needed
Patient on Trelegy as an outpatient
Avoid incentive spirometry
Chest tube placed by interventional radiology
Chest x-ray 08/15/2025 without evidence for pneumothorax
Chest tube currently on wall suction-no airleak-continue on wall suction for 24 hours and consider waterseal tomorrow and if doing well subsequent clamp and removal
Potential CT chest-due for August yearly low-dose lung cancer screening CT
Outlined to patient multiple scenarios including fairly rapid removal of chest tube if no airleak as outlined above, however, explained that occasionally air leaks persist and there is need for chest tube repositioning, resizing, and even thoracic
surgical involvement-patient to wear different scenarios
Smoking cessation counseling
Nicotine patch if needed
DVT prophylaxis-on Lovenox
GI prophylaxis-on famotidine
Reviewed with nursing and hospitalist-Dr. Todd
Outpatient pulm evaluation recommended-needs PFTs, ongoing smoking cessation counseling, yearly low-dose lung cancer screening CAT scan, etc.
Diagnostic data:
Chest x-ray 08/14/2025-large right pneumothorax, no shift of midline structures
Chest x-ray 08/15/2025-interval placement of right-sided chest tube without radiographic evidence for residual pneumothorax
CT [id number]-klf-cvwz 09/17/2024-scattered pulmonary nodules, no definitive new suspicious pulmonary nodules, ascending aorta appears dilated measuring 4.4 cm previously 4.2 cm when compared to 03/2023, right upper lobe 4 mm nodule, right middle lobe 4
mm nodule, right lower lobe three 3 mm nodule, left lower lobe unchanged 4 mm subpleural nodule
Data Reviewed
-
EKG: Report reviewed by me
Radiology: Image personally visualized and interpreted and Report reviewed by me
CT Scan: Report reviewed by me
Medical Tests (Nuc Med, Echo etc): Report reviewed by me
Labs: Labs reviewed by me
Old Records: Reviewed
Total Time Spent with Patient (in minutes): 55
--- NOTE | 2025-08-15 09:57 | W.PN.HOSP.TC ---
Today's Communication/Plan
-
continue low wall suction of Chest tube
AM CXR
Assessment / Plan
Assessment / Plan
Assessment:
SOB
Large right-sided pneumothorax with collapse of the right lung
Acute hypoxic respiratory insufficiency - resolved
- noted prior history of LUDMILA pneumothorax with lobectomy in
- s/p chest tube insertion 08/14
- IR and pulm following
- AM CXR 08/15 without residual PTX. Keep on low wall suction for today.
Recent COPD exacerbation
- completed doxy and steroid course
- supportive care, cough suppressants
Essential HTN
- observe off BP Meds
HLD - statin
Valvular disease
Tobacco abuse
- nicotine patch
- cessation counselling provided
Anxiety/Depression
- continue meds
DVT ppx: Lovenox
Code: Full
Anticipated Discharge: > 48 hours
Subjective/Interval History
-
Date of Service: August 15, 2025
resting comfortably, no SOB
AM CXR without residual PTX with CT in place
Objective Data
-
Labs:
Laboratory Results
08/15/25
08:13
WBC 7.7
Hgb 13.2
Hct 40.8
Plt Count 272
Sodium 140
Potassium 3.9
Chloride 107
Carbon Dioxide 30
BUN 14
Creatinine 0.7
Glucose 86
Calcium 9.7
Vital Signs:
Vital Signs
Temp Pulse Resp BP Pulse Ox
97.4 F 62 16 123/66 94
08/15/25 02:58 08/15/25 02:58 08/15/25 02:58 08/15/25 02:58 08/15/25 02:58
I&O
08/14/25 08/15/2525
06:59 06:59 06:59
Intake Total 520 / 520
Output Total
Balance 515 / 515
Physical Exam
-
General: No Apparent Distress
HEENT: Normocephalic and Atraumatic
Respiratory: Chest Tubes (Right); Negative Wheezes
Cardiac: Regular Rhythm and S1/S2
GI: Soft
Genito-urinary: No Costovertebral Tender
Neuro: AO x 3
Psych: Calm
Data Reviewed
-
Total Time Spent with Patient (in minutes): 42
Labs: Labs Reviewed by me
--- NOTE | 2025-08-15 10:52 | CM ---
CM following re: discharge planning.
Reviewed pt' chart, met with pt.
Pt is a 70 year old female, admitted with primary dx of SOB. PMH: COPD, HTN, HLD, Valvular disease.
Pt reports she lives alone in an apartment, daughter lives in the same apartment building. Pt reports she is going through very difficult time every July-August... this year is 5 years anniversary her and son . Emotional
support offered and provided. Pt reports her brother uses to live with her but he developed Dementia, became very aggressive and she placed him to [facility] and per pt she will not accept him back and [facility] will place him to a senior living.
Also, pt stated she has a custody of her 16 year old grandson because his mother relapsed, came back to drugs and she is now in an inpatient residential D&A rehab. Pt's sister her daughter thinks she can come back to live with her and it will not be
a case. Pt stated her grandson is Autistic, has Bipolar disorder, goes to special needs school. Pt stated her brother is taking care of her grandson.
Pt reports she has a RW, cane, raised toilet sit, shower chair, was at [facility] in 2023. Pt expressed her desire to return back home at discharge.
PT and OT will evaluate the pt to determine a level of care at discharge.
Pharmacy: [facility]
D/C plan: home with anticipated no needs.
CM will follow with discharge plan updates as hospitalization progresses
[2025-08-15 11:00] VITALS: BP 154/76
[2025-08-15 15:00] VITALS: BP 148/68
[2025-08-15] MEDS: TYLENOL 650 MG PO (16:30)
[2025-08-15] MEDS: LOVENOX SC (18:10)
[2025-08-15] MEDS: NICODERM TRANSDERMAL 14 MG TRANSDERM (18:22)
[2025-08-15] MEDS: BELBUCA BUCCAL ×2 (19:54)
[2025-08-15] MEDS: SEROQUEL 400 MG PO (21:59)
[2025-08-15] MEDS: PEPCID 20 MG PO (21:59)
[2025-08-15 23:30] VITALS: BP 144/75
[2025-08-16] MEDS: FIORICET 1 TAB PO (00:27)
--- NOTE | 2025-08-16 05:06 | W.PN.UPDATE ---
Update Note
Progress Note Update
Per RN patient reports of not feeling well. Upon assessment, patient reports she feels generally not well. Patient's VSS, lungs - fine crackles to the right base. Chest tube insertion site CDI, no signs of air leak or crepitus. Patient does have
intermittent cough that sounds congested which she reports not being new. Patient also reports having migraine headache.
Rx Fioricet, nursing to continue to monitor.
[2025-08-16] MEDS: ULTRAM 50 MG PO ×3 (05:46→21:37)
[2025-08-16 07:00] VITALS: BP 102/75
[2025-08-16 07:04] LABS: Hematocrit 39.7 % (37.0-47.0); Hemoglobin 13.2 g/dL (12.0-16.0); Mean Corp Hgb Conc. 33.2 g/dL (33.0-37.0); Mean Corpuscular Volume 91.3 fL (81.0-99.0); Platelet Count 256 10^3/uL (130-400); Red Cell Dist. Width 13.8 % (11.5-14.5)
[2025-08-16 07:28] LABS: Blood Urea Nitrogen 20 mg/dl (7-17); Calcium 9.5 mg/dl (8.4-10.2); Carbon Dioxide 28 mmol/L (22-30); Chloride 110 mmol/L (98-107); Estimated Creatinine Clearance 73 ml/min; Glucose 81 mg/dl (70-99); Potassium 4.1 mmol/L (3.5-5.1); Sodium 140 mmol/L (135-145); eGFR > 60.00
[2025-08-16] MEDS: KLONOPIN 1 MG PO ×2 (08:38→12:18)
[2025-08-16] MEDS: PROTONIX 40 MG PO (08:38)
[2025-08-16] MEDS: LIPITOR 40 MG PO (08:38)
[2025-08-16] MEDS: NICODERM TRANSDERMAL 14 MG TRANSDERM (08:38)
[2025-08-16] MEDS: CYMBALTA DELAYED RELEASE 60 MG PO (08:38)
[2025-08-16] MEDS: NORCO 7.5/325 1 TABLET PO ×2 (08:38→20:02)
[2025-08-16] MEDS: NEURONTIN 600 MG PO ×2 (08:39→20:02)
[2025-08-16] MEDS: BELBUCA 600 MCG BUCCAL (08:39)
[2025-08-16] MEDS: BELBUCA 150 MCG BUCCAL (08:39)
--- NOTE | 2025-08-16 10:29 | W.PN.HOSP.TC ---
Today's Communication/Plan
-
Continue with chest tube
Assessment / Plan
Assessment / Plan
Assessment:
SOB secondary to large right-sided pneumothorax-resolved symptoms
Large right-sided pneumothorax with collapse of the right lung
Acute hypoxic respiratory insufficiency - resolved
- noted prior history of LUDMILA pneumothorax with lobectomy in
- s/p chest tube insertion 08/14
- IR and pulm following
- AM CXR 08/16 without residual PTX.
- Ongoing airleak-continue with chest tube and suction.
Recent COPD exacerbation
- completed doxy and steroid course
- supportive care, cough suppressants
- No evidence of exacerbation
Essential HTN
- observe off BP Meds
HLD - statin
Valvular disease
Tobacco abuse
- nicotine patch
- cessation counselling provided
- Patient shown her pictures of CAT scan with emphysema. She is aware smoking is going to be detrimental to her going forward-plans to not to go back to it.
Anxiety/Depression
- continue meds
DVT ppx: Lovenox
Code: Full
Discussed with the daughter
Anticipated Discharge: Today
Subjective/Interval History
-
Date of Service: August 16, 2025
Chest tube in place. Denies any shortness of breath.
Pain from chest tube site is tolerable.
Denies any lightheadedness.
Denies any nausea vomiting.
Objective Data
-
Labs:
Laboratory Results
08/16/25
06:23
WBC 6.7
Hgb 13.2
Hct 39.7
Plt Count 256
Sodium 140
Potassium 4.1
Chloride 110 H
Carbon Dioxide 28
BUN 20 H
Creatinine 0.7
Glucose 81
Calcium 9.5
Vital Signs:
Vital Signs
Temp Pulse Resp BP Pulse Ox
97.9 F 70 16 102/75 95
08/16/25 07:00 08/16/25 07:00 08/16/25 07:00 08/16/25 07:00 08/16/25 07:00
I&O
08/15/25 08/16/25 08/17/25
06:59 06:59 06:59
Intake Total 520 / 520 2280 / 2280
Output Total / 2
Balance 518 / 518 2272 / 2272
Physical Exam
-
General: No Apparent Distress
Respiratory: Non Labored Respirations and Chest Tubes (With a leak noted); Negative Wheezes, Crackles or Accessory Resp Muscle Use
Cardiac: Regular Rhythm and S1/S2; Negative Tachycardic
Neuro: AO x 3
Psych: Calm; Negative Confused
Data Reviewed
-
Diagnostic Radiology: Image personally visualized and interpreted (Chest x-ray shows no pneumothorax) and Report Reviewed by me (Chest x-ray)
--- NOTE | 2025-08-16 14:01 | W.PN.PUL3 ---
Today's Communication / Plan
-
- Follow-up chest x-ray in a.m.
- Continue chest tube to suction
- As needed Duoneb
Assessment
-
70-year-old smoking female with history of underlying COPD, hypertension, hyperlipidemia, and distant history of left upper lobectomy/surgery in the for 'lung collapse' presented with increasing shortness of breath for 1 week felt to be COPD
exacerbation unresponsive to steroids doxycycline and came to the emergency room and found to have large right-sided pneumothorax-pulmonary consulted for COPD/pneumothorax 08/15/2025.
Large right pneumothorax
Status post chest tube 08/14/2025-interventional radiology
Recent COPD exacerbation
Conditions present prior to admission:
COPD-last saw photograph enlarger-Dr. Sumner-[facility] about 5 years ago-maintained on Trelegy and albuterol, no oxygen
Cigarette smoker-1 pack/day.
Multiple pulmonary nodules-stable 04/12/2023 through 09/17/2024
Hypertension.
Hyperlipidemia.
Valvular disease.
Hysterectomy. Left upper lobe surgery-lobectomy versus pneumothorax related .
Plan
Respiratory decompensation due to pneumothorax in this patient with underlying COPD
Supplemental oxygen as needed-supplemental oxygen should help with nitrogen washout and help with pneumothorax resolution
Nebulizers if needed
Patient on Trelegy as an outpatient
Avoid incentive spirometry
Chest tube placed by interventional radiology
Chest x-ray 08/15/2025 without evidence for pneumothorax
Chest tube currently on wall suction-Grade 1 air leak noted, with expiration. Continue chest tube to suction for now.
Potential CT chest-due for August yearly low-dose lung cancer screening CT
Outlined to patient multiple scenarios including fairly rapid removal of chest tube if no airleak as outlined above, however, explained that occasionally air leaks persist and there is need for chest tube repositioning, resizing, and even thoracic
surgical involvement-patient to wear different scenarios
Smoking cessation counseling
Nicotine patch if needed
DVT prophylaxis-on Lovenox
GI prophylaxis-on famotidine
Reviewed with nursing staff
Outpatient pulm evaluation recommended-needs PFTs, ongoing smoking cessation counseling, yearly low-dose lung cancer screening CAT scan, etc.
Diagnostic data:
Chest x-ray 08/14/2025-large right pneumothorax, no shift of midline structures
Chest x-ray 08/15/2025-interval placement of right-sided chest tube without radiographic evidence for residual pneumothorax
CT tctqq-zzh-qrsh 09/17/2024-scattered pulmonary nodules, no definitive new suspicious pulmonary nodules, ascending aorta appears dilated measuring 4.4 cm previously 4.2 cm when compared to 03/2023, right upper lobe 4 mm nodule, right middle lobe 4
mm nodule, right lower lobe three 3 mm nodule, left lower lobe unchanged 4 mm subpleural nodule
Subjective Data
-
Date of Service:
Date of Service: August 16, 2025
Subjective:
Comfortably sitting in bed in no acute distress
Review of Systems
Genitourinary: Other (All 14 systems reviewed and negative except as stated above in the history of present illness.)
Objective Data
Data Reviewed
Vital Signs / I&O / Oxygen:
Vital Signs
Temp Pulse Resp BP Pulse Ox
97.9 F 70 16 102/75 95
08/16/25 07:00 08/16/25 07:00 08/16/25 07:00 08/16/25 07:00 08/16/25 11:02
Intake and Output
08/15/25 08/16/25 08/17/25
06:59 06:59 06:59
Intake Total 520 / 520 2280 / 2280
Output Total 2 / 2
Balance 518 / 518 2272 / 2272
SaO2 95
Nasal Cannula flow liters per 3
minute
Physical Exam
General: Comfortable
HEENT: Normocephalic
Cardiovascular: S1-S2
Respiratory: Clear
GI: Soft and Non Distended
Neurology: Awake and Alert
Skin: Warm
Labs/Micro/Reports
Lab Data
08/16/25 06:23
08/16/25 06:23
Microbiology
08/14/25 10:34 Nasal Swab Influenza Types A & B (GERALDINE) - Final
Negative for Influenza A & B, NAAT
Negative results must be combined with clinical observations
and patient history.
Nucleic Acid Amplification test (NAAT)performed on the
[employer] platform.
[2025-08-16 15:00] VITALS: BP 125/58
[2025-08-16] MEDS: LOVENOX SC (17:16)
[2025-08-16] MEDS: BELBUCA BUCCAL ×2 (20:01)
[2025-08-16] MEDS: PEPCID 20 MG PO (21:37)
[2025-08-16] MEDS: SEROQUEL 400 MG PO (21:37)
[2025-08-16 23:05] VITALS: BP 139/59
[2025-08-17 07:00] VITALS: BP 164/79
[2025-08-17 07:29] LABS: Hematocrit 42.6 % (37.0-47.0); Hemoglobin 13.7 g/dL (12.0-16.0); Mean Corp Hgb Conc. 32.2 g/dL (33.0-37.0); Mean Corpuscular Volume 93.4 fL (81.0-99.0); Platelet Count 228 10^3/uL (130-400); Red Cell Dist. Width 13.7 % (11.5-14.5)
[2025-08-17 07:50] LABS: Blood Urea Nitrogen 20 mg/dl (7-17); Calcium 9.6 mg/dl (8.4-10.2); Carbon Dioxide 28 mmol/L (22-30); Chloride 108 mmol/L (98-107); Estimated Creatinine Clearance 73 ml/min; Glucose 82 mg/dl (70-99); Potassium 4.2 mmol/L (3.5-5.1); Sodium 140 mmol/L (135-145); eGFR > 60.00
[2025-08-17] MEDS: CYMBALTA DELAYED RELEASE 60 MG PO (08:26)
[2025-08-17] MEDS: PROTONIX 40 MG PO (08:27)
[2025-08-17] MEDS: NEURONTIN 600 MG PO ×2 (08:27→19:21)
[2025-08-17] MEDS: KLONOPIN 1 MG PO ×2 (08:27→12:12)
[2025-08-17] MEDS: NORCO 7.5/325 1 TABLET PO ×2 (08:27→19:21)
[2025-08-17] MEDS: LIPITOR 40 MG PO (08:27)
[2025-08-17] MEDS: BELBUCA 150 MCG BUCCAL (08:28)
[2025-08-17] MEDS: BELBUCA 600 MCG BUCCAL (08:28)
[2025-08-17] MEDS: NICODERM TRANSDERMAL 14 MG TRANSDERM (08:29)
[2025-08-17 08:36] VITALS: BP 144/90
--- NOTE | 2025-08-17 10:09 | W.PN.HOSP.TC ---
Today's Communication/Plan
-
Continue with chest tube to suction. Follow serial chest x-ray.
Assessment / Plan
Assessment / Plan
Assessment:
SOB secondary to large right-sided pneumothorax-resolved symptoms
Large right-sided pneumothorax with collapse of the right lung
Acute hypoxic respiratory insufficiency - resolved
- noted prior history of LUDMILA pneumothorax with lobectomy in
- s/p chest tube insertion 08/14
- Chest x-ray from today shows questionable tiny right apical pneumothorax. Right chest tube stable in position.
- - Ongoing airleak-continue with chest tube and suction.
- IR and pulm following
Recent COPD exacerbation
- completed doxy and steroid course
- supportive care, cough suppressants
- No evidence of exacerbation
Essential HTN
- observe off BP Meds
HLD - statin
Valvular disease
Tobacco abuse
- nicotine patch
- cessation counselling provided
Anxiety/Depression
- continue meds
DVT ppx: Lovenox
Code: Full
Anticipated Discharge: > 48 hours
Subjective/Interval History
-
Date of Service: August 17, 2025
Denies shortness of breath. Chest tube still in place.
Denies any chest pain. No nausea vomiting. No dizziness. No fever or chills.
Objective Data
-
Labs:
Laboratory Results
08/17/25
06:36
WBC 6.9
Hgb 13.7
Hct 42.6
Plt Count 228
Sodium 140
Potassium 4.2
Chloride 108 H
Carbon Dioxide 28
BUN 20 H
Creatinine 0.7
Glucose 82
Calcium 9.6
Vital Signs:
Vital Signs
Temp Pulse Resp BP Pulse Ox
98.1 F 77 12 144/90 100
08/17/25 07:00 08/17/25 07:00 08/17/25 07:00 08/17/25 08:36 08/17/25 07:00
I&O
08/16/25 08/17/25 08/18/25
06:59 06:59 06:59
Intake Total 2280 / 2280 900 / 900
Output Total
Balance 2272 / 2272 893 / 893 -5
Physical Exam
-
General: Comfortable
Respiratory: Clear to Auscultation and Non Labored Respirations; Negative Wheezes or Accessory Resp Muscle Use
Cardiac: Regular Rhythm and S1/S2; Negative Tachycardic
GI: Soft
Neuro: AO x 3
Psych: Calm; Negative Confused
Data Reviewed
-
Labs: Labs Reviewed by me
--- NOTE | 2025-08-17 13:32 | W.PN.PUL3 ---
Today's Communication / Plan
-
- F/u CXR in AM
- If air leak persist by 08/18, will need CT surgery consult
Assessment
-
70-year-old smoking female with history of underlying COPD, hypertension, hyperlipidemia, and distant history of left upper lobectomy/surgery in the for 'lung collapse' presented with increasing shortness of breath for 1 week felt to be COPD
exacerbation unresponsive to steroids doxycycline and came to the emergency room and found to have large right-sided pneumothorax-pulmonary consulted for COPD/pneumothorax 08/15/2025.
Large right pneumothorax
Status post chest tube 08/14/2025-interventional radiology
Recent COPD exacerbation
Conditions present prior to admission:
COPD-last saw yield clerk-Dr. Sumner-[facility] about 5 years ago-maintained on Trelegy and albuterol, no oxygen
Cigarette smoker-1 pack/day.
Multiple pulmonary nodules-stable 04/12/2023 through 09/17/2024
Hypertension.
Hyperlipidemia.
Valvular disease.
Hysterectomy. Left upper lobe surgery-lobectomy versus pneumothorax related .
Plan
Respiratory decompensation due to pneumothorax in this patient with underlying COPD
Supplemental oxygen as needed-supplemental oxygen should help with nitrogen washout and help with pneumothorax resolution
Nebulizers if needed
Patient on Trelegy as an outpatient
Avoid incentive spirometry
Chest tube placed by interventional radiology
Chest x-ray 08/15/2025 without evidence for pneumothorax
Chest tube currently on wall suction-Grade 1 air leak still noted with expiration. Continue chest tube to suction for now.
If air leak persist another 24 hrs, will need CT surgery consult
Reported h/o left sided pneumothorax 25 years ago required 'surgical fusion' per patient.
Potential CT chest-due for August yearly low-dose lung cancer screening CT
Outlined to patient multiple scenarios including fairly rapid removal of chest tube if no airleak as outlined above, however, explained that occasionally air leaks persist and there is need for chest tube repositioning, resizing, and even thoracic
surgical involvement-patient to wear different scenarios
Smoking cessation counseling
Nicotine patch if needed
DVT prophylaxis-on Lovenox
GI prophylaxis-on famotidine
Reviewed with nursing staff
Outpatient pulm evaluation recommended-needs PFTs, ongoing smoking cessation counseling, yearly low-dose lung cancer screening CAT scan, etc.
Diagnostic data:
Chest x-ray 08/14/2025-large right pneumothorax, no shift of midline structures
Chest x-ray 08/15/2025-interval placement of right-sided chest tube without radiographic evidence for residual pneumothorax
CT fiuhm-dyk-bykb 09/17/2024-scattered pulmonary nodules, no definitive new suspicious pulmonary nodules, ascending aorta appears dilated measuring 4.4 cm previously 4.2 cm when compared to 03/2023, right upper lobe 4 mm nodule, right middle lobe 4
mm nodule, right lower lobe three 3 mm nodule, left lower lobe unchanged 4 mm subpleural nodule
Subjective Data
-
Date of Service:
Date of Service: August 17, 2025
Subjective:
Patient comfortably sitting in bed in no acute distress. Saturating well on room air
Review of Systems
Genitourinary: Other (All 14 systems reviewed and negative except as stated above in the history of present illness.)
Objective Data
Data Reviewed
Vital Signs / I&O / Oxygen:
Vital Signs
Temp Pulse Resp BP Pulse Ox
98.1 F 77 12 144/90 100
08/17/25 07:00 08/17/25 07:00 08/17/25 07:00 08/17/25 08:36 08/17/25 07:00
Intake and Output
08/16/25 08/17/25 08/18/25
06:59 06:59 06:59
Intake Total 2280 / 2280 900 / 900
Output Total 8 / 8 7 / 7 5 / 5
Balance 2272 / 2272 893 / 893 -5 / -5
SaO2 100
Nasal Cannula flow liters per 3
minute
Physical Exam
General: Comfortable
HEENT: Normocephalic
Cardiovascular: S1-S2
Respiratory: Clear
GI: Soft and Non Distended
Neurology: Awake and Alert
Skin: Warm
Labs/Micro/Reports
Lab Data
08/17/25 06:36
08/17/25 06:36
Microbiology
08/14/25 10:34 Nasal Swab Influenza Types A & B (GERALDINE) - Final
Negative for Influenza A & B, NAAT
Negative results must be combined with clinical observations
and patient history.
Nucleic Acid Amplification test (NAAT)performed on the
[employer] platform.
[2025-08-17 15:00] VITALS: BP 130/68
[2025-08-17] MEDS: ULTRAM 50 MG PO ×2 (15:59→22:00)
[2025-08-17] MEDS: LOVENOX SC (17:12)
[2025-08-17] MEDS: BELBUCA BUCCAL ×2 (19:26→19:27)
[2025-08-17] MEDS: TESSALON PERLES 100 MG PO (19:27)
[2025-08-17] MEDS: PEPCID 20 MG PO (21:50)
[2025-08-17] MEDS: SEROQUEL 400 MG PO (21:52)
[2025-08-17 23:21] VITALS: BP 142/62
[2025-08-18] MEDS: ULTRAM 50 MG PO ×2 (05:30→16:50)
[2025-08-18 07:00] VITALS: BP 179/80
[2025-08-18] MEDS: TESSALON PERLES 100 MG PO ×2 (08:01→20:29)
[2025-08-18] MEDS: PROTONIX 40 MG PO (08:01)
[2025-08-18] MEDS: NEURONTIN 600 MG PO ×2 (08:01→20:29)
[2025-08-18] MEDS: KLONOPIN 1 MG PO ×3 (08:01→21:00)
[2025-08-18] MEDS: LIPITOR 40 MG PO (08:01)
[2025-08-18] MEDS: CYMBALTA DELAYED RELEASE 60 MG PO (08:01)
[2025-08-18] MEDS: BELBUCA 600 MCG BUCCAL (08:02)
[2025-08-18] MEDS: BELBUCA 150 MCG BUCCAL (08:02)
[2025-08-18] MEDS: NICODERM TRANSDERMAL 14 MG TRANSDERM (08:03)
[2025-08-18] MEDS: NORCO 7.5/325 1 TABLET PO ×2 (08:10→20:29)
[2025-08-18] MEDS: DUONEB 3 ML INH ×2 (08:16→20:37)
--- NOTE | 2025-08-18 08:19 | PTCARENOTE ---
Addendum entered by Sarika Jauregui RN 08/18/25 10:06:
Pt with continual c/o SOB despite PRN neb tx, called brooks CASTAN[facility], 2Lo2 placed with no relief - increased to 4Lo2, 91-94%. Site redressed, ;lung sounds still diminished, no crepitus at site. Repeat CXR 3 hours after last one showed slight worsening, MD
and brooks aware. Pulm order to increase suction to -30, pt still SOB but visible beginning to calm down again after AM meds and breakfast. Primary MD in to explain current clinical status to pt and daughter Lourdes, repeat CXR ordered in 1 hour
post-increase of suction to -30. No new orders at this time.
Original Note:
Pt rang call parada for this RN with c/o visible SOB, 90% on room air, CT intact at -20 to wall suction. Breath sounds consistent with overnight RN's assessment, no changes. Resp at bedside to give PRN neb tx. Pt provided with emotional support to
calm down from visible anxiety from SOB. Pt resting more comfortably from treatment at this time, verbalizing feeling better with nebulizer treatment. No new orders at this time.
--- NOTE | 2025-08-18 09:19 | W.PN.PUL3 ---
Today's Communication / Plan
-
Worsening ptx, on 4L
Increased suctioning applied, repeat CXR
If not improved may need IR repositioning
Consideration for application of Doxy as well if overall her ptx has not resolved since 08/14
Assessment
-
70-year-old smoking female with history of underlying COPD, hypertension, hyperlipidemia, and distant history of left upper lobectomy/surgery in the for 'lung collapse' presented with increasing shortness of breath for 1 week felt to be COPD
exacerbation unresponsive to steroids doxycycline and came to the emergency room and found to have large right-sided pneumothorax-pulmonary consulted for COPD/pneumothorax 08/15/2025.
Large right pneumothorax status post chest tube 08/14/2025-interventional radiology
Recent COPD exacerbation
Conditions present prior to admission:
COPD-last saw foreign law consultant-Dr. Sumner[facility] about 5 years ago-maintained on Trelegy and albuterol, no oxygen
Cigarette smoker-1 pack/day.
Multiple pulmonary nodules-stable 04/12/2023 through 09/17/2024
Hypertension.
Hyperlipidemia.
Valvular disease.
Hysterectomy. Left upper lobe surgery-lobectomy versus pneumothorax related .
Plan
Respiratory decompensation due to pneumothorax in this patient with underlying COPD
Supplemental oxygen as needed-she is increased to 4L this AM due to re-expansion
Repeat CXR reviewed, increase suction to -30 and repeat, if not improving may need IR re-eval tube placement
Nebulizers if needed
Patient on Trelegy as an outpatient
Avoid incentive spirometry
Chest tube placed by interventional radiology
Chest x-ray 08/15/2025 without evidence for pneumothorax
Chest tube currently on wall suction-Grade 1 air leak still noted with expiration. Continue chest tube to suction for now.
If air leak persists this week without resolution-may need CT surgery consult
Reported h/o left sided pneumothorax 25 years ago required 'surgical fusion' per patient.
Could consider doxy application as well today
Potential CT chest-due for August yearly low-dose lung cancer screening CT
Outlined to patient multiple scenarios including fairly rapid removal of chest tube if no airleak as outlined above, however, explained that occasionally air leaks persist and there is need for chest tube repositioning, resizing, and even thoracic
surgical involvement-patient to wear different scenarios
Smoking cessation counseling
Nicotine patch if needed
DVT prophylaxis-on Lovenox
GI prophylaxis-on famotidine
Reviewed with nursing staff and care team
Outpatient pulm evaluation recommended-needs PFTs, ongoing smoking cessation counseling, yearly low-dose lung cancer screening CAT scan, etc.
Diagnostic data:
Chest x-ray 08/14/2025-large right pneumothorax, no shift of midline structures
Chest x-ray 08/15/2025-interval placement of right-sided chest tube without radiographic evidence for residual pneumothorax
CT [id number] 09/17/2024-scattered pulmonary nodules, no definitive new suspicious pulmonary nodules, ascending aorta appears dilated measuring 4.4 cm previously 4.2 cm when compared to 03/2023, right upper lobe 4 mm nodule, right middle lobe 4
mm nodule, right lower lobe three 3 mm nodule, left lower lobe unchanged 4 mm subpleural nodule
Total time spent on this consultation/encounter __55__ minutes which includes review of history, physical exam, medications, laboratory data, personal review of imaging, extensive review of outpatient records, discussion with care team and
respiratory therapy.
Subjective Data
-
Date of Service:
Date of Service: August 18, 2025
Chief Complaint: Pulmonary Follow Up
Subjective:
Now on 4L NC, after standing this AM SOB worsening
Repeat CXR with re-expanded ptx, airleak is ongoing in chamber
Objective Data
Data Reviewed
Vital Signs / I&O / Oxygen:
Vital Signs
Temp Pulse Resp BP Pulse Ox
98 F 92 22 179/80 96
08/18/25 07:00 08/18/25 08:18 08/18/25 08:18 08/18/25 07:00 08/18/25 08:18
Intake and Output
08/17/25 08/18/25 08/19/25
06:59 06:59 06:59
Intake Total 900 / 900 1080 / 1080
Output Total
Balance 893 / 893 1059 / 1059
SaO2 96
Nasal Cannula flow liters per 3
minute
Physical Exam
General: Comfortable and Other (NAD)
HEENT: Normocephalic, Anicteric and Moist Mucous Membranes
Cardiovascular: S1-S2 and Regular Rhythm
Respiratory: Clear, Non-Labored Respirations and Chest Tube
GI: Soft, Non Distended and Non Tender
Neurology: Awake, Alert, Oriented and No Motor Deficits
Skin: Warm and Dry
Labs/Micro/Reports
Lab Data
08/17/25 06:36
08/17/25 06:36
--- NOTE | 2025-08-18 12:52 | W.PN.HOSP.TC ---
Today's Communication/Plan
-
continue CT with -30 cm suction and follow clinically/radiographically
appreciate pulm recs
Assessment / Plan
Assessment / Plan
Assessment:
SOB secondary to large right-sided pneumothorax-resolved symptoms
Large right-sided pneumothorax with collapse of the right lung
Acute hypoxic respiratory insufficiency on 2-4 L NC
- noted prior history of LUDMILA pneumothorax with lobectomy in
- s/p chest tube insertion 08/14
- Ongoing airleak-continue with chest tube and suction. suction increased to -30 on 08/18/25
- repeat AM CXR
- IR and pulm following
- could consider doxy pleurodesis as well
- eventual OP CT scan
Recent COPD exacerbation
- completed doxy and steroid course
- supportive care, cough suppressants
- No evidence of exacerbation
Essential HTN
- observe off BP Meds
HLD - statin
Valvular disease
Tobacco abuse
- nicotine patch
- cessation counselling provided
Anxiety/Depression
- continue meds
DVT ppx: Lovenox
Code: Full
Anticipated Discharge: > 48 hours
Subjective/Interval History
-
Date of Service: August 18, 2025
this AM With SOB requiring 4L NC, after suction increase to -30, repeat CXR with improving PTX
patient denies CP
Objective Data
-
Vital Signs:
Vital Signs
Temp Pulse Resp BP Pulse Ox
98 F 92 22 179/80 96
08/18/25 07:00 08/18/25 08:18 08/18/25 08:18 08/18/25 07:00 08/18/25 10:23
I&O
08/17/25 08/18/25 08/19/25
06:59 06:59 06:59
Intake Total 900 / 900 1080 / 1080
Output Total
Balance 893 / 893 1059 / 1059
Physical Exam
-
General: No Apparent Distress
HEENT: Normocephalic and Atraumatic
Respiratory: Chest Tubes; Negative Wheezes
Cardiac: Regular Rhythm and S1/S2
GI: Soft
Musculoskeletal: No Edema
Neuro: AO x 3
Psych: Calm
Data Reviewed
-
Total Time Spent with Patient (in minutes): 42
Labs: Labs Reviewed by me
[2025-08-18 15:00] VITALS: BP 129/65
--- NOTE | 2025-08-18 15:20 | CM ---
CM following re: discharge planning.
Reviewed pt' chart, met with pt.
Per chart review, Worsening ptx, on 4L. Increased suctioning applied, repeat CXR.If not improved may need IR repositioning
Pt reports she lives alone in an apartment, daughter lives in the same apartment building. Pt reports she is going through very difficult time every July-August... this year is 5 years anniversary her and son . Emotional
support offered and provided. Pt reports her brother uses to live with her but he developed Dementia, became very aggressive and she placed him to Counts include 234 beds at the [facility] and per pt she will not accept him back and [facility] to a [facility].
Also, pt stated she has a custody of her 16 year old grandson because his mother relapsed, came back to drugs and she is now in an inpatient residential D&A rehab. Pt's sister her daughter thinks she can come back to live with her and it will not be
a case. Pt stated her grandson is Autistic, has Bipolar disorder, goes to special needs school. Pt stated her brother is taking care of her grandson.
Pt reports she has a RW, cane, raised toilet sit, shower chair, was at [facility] in 2023. Pt expressed her desire to return back home at discharge.
PT and OT will evaluate the pt to determine a level of care at discharge.
D/C plan: home with anticipated no needs vs VN vs DME.
CM will follow with discharge plan updates as hospitalization progresses
[2025-08-18] MEDS: LOVENOX SC (17:05)
[2025-08-18] MEDS: BELBUCA BUCCAL ×2 (19:01)
--- NOTE | 2025-08-18 21:10 | PTCARENOTE ---
Addendum entered by Thalia Wong RN 08/19/25 02:00:
Around 22:40 pt arrived back to 2N, states she is able to breathe better and feels better. Chest tube insertion site, chest tube, and drainage unit all stable and intact.
Original Note:
Around 20:50 pt states SOB and very anxious, this RN assessed chest tube insertion site, chest tube and drainage unit, all stable and intact. Pt pulse ox was 80% on 4L oxygen. Respiratory notified and administered duo neb (see MAR). Pt was very
anxious and tachypneic, pt placed on NRB-remained non-compliant with txs. Notified ELECTRIC RANGE SERVICER-Clonazepam 1mg administered by this RN. SpO2 increased to 94% on 4LO2. ELECTRIC RANGE SERVICER ordered chest X ray. ELECTRIC RANGE SERVICER came to assess pt. Pt went to IRAD... see IRAD note.
[2025-08-18] MEDS: PEPCID 20 MG PO (21:27)
[2025-08-18] MEDS: SEROQUEL 400 MG PO (21:27)
[2025-08-18] MEDS: VALIUM INJECTION 2 MG IV (22:27)
--- NOTE | 2025-08-18 23:14 | PTCARENOTE ---
Called in to upsize/reposition right chest tube d/t 50% pneumo. Dressing removed, tube noted to be folded over and kinked next to skin. Tube unkinked, xray done, lung reinflated. Tube re-sutured by Alyce Norwood, and redressed. Pt. transported
back to via bed.
--- NOTE | 2025-08-18 23:19 | W.PN.UPDATE ---
Update Note
Progress Note Update
2049 RN reports pt c/o sob and verge of panic attack. Pt has chest tube. Had episode similar this am and was found to have increase in PTHx and suction was increased.Afterwards suction increased repeat ct scan with no PTHx.
Clonazepam x 1 ordered and repeat cxr ordered.
o2 demands increasing from 4L to 12L with pulse ox around 88-92%
2129 TT with radiology to assist with reading CXR. CXR IMPRESSION:
1. LARGE RIGHT PNEUMOTHORAX (50% lung volume) which has increased in size since 11:28 AM.
2. Right chest tube in place projecting over the medial right hemithorax and right side of the mediastinum.
3. Severe soft tissue emphysema in the right lateral chest wall.
4. Mild emphysema in the left upper lobe.
2149 TT with pulm transition of care specialist Dr willis regarding cxr results. Suggest IR called to upsize chest tube. He asked i check for possible kinks in tubing. This provider did check for kinks from outside of dressing and lifted dressing a bit as well. No
kinks found.
2157 TT to IR transition of care specialist Dr wade regarding chest xray results and needing intervention tonight. IR will come in to upsize tube.
PT very anxious about procedure. will give valium iv prior to procedure.
0 Received TT from IR. Apparently tube was kinked at insertion site. This provider did not take down entire dressing unfortunately. Lung reinflated after tube unkinked.
[2025-08-18 23:29] VITALS: BP 101/57
[2025-08-19] MEDS: ULTRAM 50 MG PO (06:44)
[2025-08-19 07:54] VITALS: BP 147/69
[2025-08-19] MEDS: NEURONTIN 600 MG PO ×2 (08:29→19:58)
[2025-08-19] MEDS: LIPITOR 40 MG PO (08:29)
[2025-08-19] MEDS: CYMBALTA DELAYED RELEASE 60 MG PO (08:29)
[2025-08-19] MEDS: KLONOPIN 1 MG PO ×2 (08:29→12:17)
[2025-08-19] MEDS: NORCO 7.5/325 1 TABLET PO ×3 (08:29→19:58)
[2025-08-19] MEDS: PROTONIX 40 MG PO (08:29)
[2025-08-19] MEDS: BELBUCA 600 MCG BUCCAL (08:30)
[2025-08-19] MEDS: BELBUCA 150 MCG BUCCAL (08:30)
[2025-08-19] MEDS: NICODERM TRANSDERMAL 14 MG TRANSDERM (08:30)
[2025-08-19] MEDS: TESSALON PERLES 100 MG PO ×2 (08:31→18:12)
[2025-08-19 09:10] LABS: Hematocrit 41.7 % (37.0-47.0); Hemoglobin 13.6 g/dL (12.0-16.0); Mean Corp Hgb Conc. 32.6 g/dL (33.0-37.0); Mean Corpuscular Volume 89.5 fL (81.0-99.0); Platelet Count 227 10^3/uL (130-400); Red Cell Dist. Width 13.7 % (11.5-14.5)
--- NOTE | 2025-08-19 09:24 | W.PN.PUL3 ---
Today's Communication / Plan
-
Events noted, discussed case with care team
Discussed trial of Doxy wtih patient and daughter, they were agreeable
IR consult
If this trial fails, we have discussed formal CTS evaluation
Updated brother as well on the phone
Assessment
-
70-year-old smoking female with history of underlying COPD, hypertension, hyperlipidemia, and distant history of left upper lobectomy/surgery in the for 'lung collapse' presented with increasing shortness of breath for 1 week felt to be COPD
exacerbation unresponsive to steroids doxycycline and came to the emergency room and found to have large right-sided pneumothorax-pulmonary consulted for COPD/pneumothorax 08/15/2025.
Large right pneumothorax status post chest tube 08/14/2025-interventional radiology
Recent COPD exacerbation
Conditions present prior to admission:
COPD-last saw spraying machine operator-Dr. Sumner-[facility] about 5 years ago-maintained on Trelegy and albuterol, no oxygen
Cigarette smoker-1 pack/day.
Multiple pulmonary nodules-stable 04/12/2023 through 09/17/2024
Hypertension.
Hyperlipidemia.
Valvular disease.
Hysterectomy. Left upper lobe surgery-lobectomy versus pneumothorax related .
Plan
Respiratory decompensation due to pneumothorax in this patient with underlying COPD
Supplemental oxygen as needed-she is increased to 4L this AM due to re-expansion
Repeat CXR reviewed, increase suction to -30; improved
Chest tube kinked overnight, improved following correction
Nebulizers if needed
Patient on Trelegy as an outpatient
Avoid incentive spirometry
Chest tube placed by interventional radiology
Chest x-ray 08/15/2025 without evidence for pneumothorax
Chest tube currently on wall suction-Grade 1 air leak still noted with expiration. Continue chest tube to suction for now.
If air leak persists this week without resolution-may need CT surgery consult
Reported h/o left sided pneumothorax 25 years ago required 'surgical fusion' per patient.
We discussed doxy application with patient and daughter, they were agreeable, IR consult placed
If fails, we can have CTS evaluation
Potential CT chest-due for August yearly low-dose lung cancer screening CT
Outlined to patient multiple scenarios including fairly rapid removal of chest tube if no airleak as outlined above, however, explained that occasionally air leaks persist and there is need for chest tube repositioning, resizing, and even thoracic
surgical involvement-patient to wear different scenarios
Smoking cessation counseling
Nicotine patch if needed
DVT prophylaxis-on Lovenox
GI prophylaxis-on famotidine
Reviewed with nursing staff and care team
Outpatient pulm evaluation recommended-needs PFTs, ongoing smoking cessation counseling, yearly low-dose lung cancer screening CAT scan, etc.
Diagnostic data:
Chest x-ray 08/14/2025-large right pneumothorax, no shift of midline structures
Chest x-ray 08/15/2025-interval placement of right-sided chest tube without radiographic evidence for residual pneumothorax
CT [id number] 09/17/2024-scattered pulmonary nodules, no definitive new suspicious pulmonary nodules, ascending aorta appears dilated measuring 4.4 cm previously 4.2 cm when compared to 03/2023, right upper lobe 4 mm nodule, right middle lobe 4
mm nodule, right lower lobe three 3 mm nodule, left lower lobe unchanged 4 mm subpleural nodule
Total time spent on this consultation/encounter __55__ minutes which includes review of history, physical exam, medications, laboratory data, personal review of imaging, extensive review of outpatient records, discussion with care team and
respiratory therapy.
Subjective Data
-
Date of Service:
Date of Service: August 19, 2025
Chief Complaint: Pulmonary Follow Up
Subjective:
No new complaints, events ON noted
Daughter at bedside
Objective Data
Data Reviewed
Vital Signs / I&O / Oxygen:
Vital Signs
Temp Pulse Resp BP Pulse Ox
97.1 F 84 18 147/69 94
08/19/25 07:54 08/19/25 07:54 08/19/25 07:54 08/19/25 07:54 08/19/25 07:54
Intake and Output
08/18/25 08/19/25 08/20/25
06:59 06:59 06:59
Intake Total 1080 / 1080 1080 / 1080
Output Total 6 / 6
Balance 1059 / 1059 1074 / 1074
SaO2 94
Nasal Cannula flow liters per 4
minute
Physical Exam
General: Comfortable and Other (NAD)
HEENT: Normocephalic, Anicteric and Moist Mucous Membranes
Cardiovascular: S1-S2 and Regular Rhythm
Respiratory: Clear, Non-Labored Respirations and Chest Tube
GI: Soft, Non Distended and Non Tender
Neurology: Awake, Alert, Oriented and No Motor Deficits
Skin: Warm and Dry
Labs/Micro/Reports
Lab Data
08/19/25 07:55
[2025-08-19 11:06] LABS: Blood Urea Nitrogen 19 mg/dl (7-17); Calcium 9.8 mg/dl (8.4-10.2); Carbon Dioxide 27 mmol/L (22-30); Chloride 108 mmol/L (98-107); Estimated Creatinine Clearance 73 ml/min; Glucose 81 mg/dl (70-99); Potassium 4.2 mmol/L (3.5-5.1); Sodium 137 mmol/L (135-145); eGFR > 60.00
--- NOTE | 2025-08-19 13:56 | PTCARENOTE ---
Overnight RN had to send pt to IRAD to get right CT repositioned, CXR consistent with prior scan, CT system intact connected to wall suction. PRN pain medication regimen adjusted per pt's needs. in to speak with pt, no new orders at this time.
--- NOTE | 2025-08-19 14:38 | W.PN.HOSP.TC ---
Today's Communication/Plan
-
NPO p MN for IR procedure (Doxy pleurodesis) tomorrow. d/w Pulm and family
Assessment / Plan
Assessment / Plan
Assessment:
SOB secondary to large right-sided pneumothorax-resolved symptoms
Large right-sided pneumothorax with collapse of the right lung
Acute hypoxic respiratory insufficiency on 2-4 L NC
- noted prior history of LUDMILA pneumothorax with lobectomy in
- s/p chest tube insertion 08/14
- Ongoing air leak-continue with chest tube and suction. suction increased to -30 on 08/18/25 but also with a kink in tube leading to large PTX formation
- now un-kinked and repeat AXR with small residual PTX
- d/w pulm and patient/family; next step is IR for doxycycline pleurodesis. NPO p MN.
- repeat AM CXR
- IR and pulm following
- eventual OP CT scan
Recent COPD exacerbation
- completed doxy and steroid course
- supportive care, cough suppressants
- No evidence of exacerbation
Essential HTN
- observe off BP Meds
HLD - statin
Valvular disease
Tobacco abuse
- nicotine patch
- cessation counselling provided
Anxiety/Depression
- continue meds
DVT ppx: Lovenox
Code: Full
Anticipated Discharge: > 48 hours
Subjective/Interval History
-
Date of Service: August 19, 2025
resting comfortably on 2-4 L NC
AM CXR with residual apical PTX
Objective Data
-
Labs:
Laboratory Results
08/19/25
07:55
WBC 8.9
Hgb 13.6
Hct 41.7
Plt Count 227
Sodium 137
Potassium 4.2
Chloride 108 H
Carbon Dioxide 27
BUN 19 H
Creatinine 0.7
Glucose 81
Calcium 9.8
Vital Signs:
Vital Signs
Temp Pulse Resp BP Pulse Ox
97.1 F 84 18 147/69 94
08/19/25 07:54 08/19/25 07:54 08/19/25 07:54 08/19/25 07:54 08/19/25 11:55
I&O
08/18/25 08/19/25 08/20/25
06:59 06:59 06:59
Intake Total 1080 / 1080 1080 / 1080
Output Total
Balance 1059 / 1059 1074 / 1074
Physical Exam
-
General: No Apparent Distress
HEENT: Normocephalic and Atraumatic
Respiratory: Chest Tubes; Negative Wheezes
Cardiac: Regular Rhythm and S1/S2
GI: Soft and Nontender
Musculoskeletal: No Edema
Neuro: AO x 3
Psych: Calm
Data Reviewed
-
Total Time Spent with Patient (in minutes): 41
Labs: Labs Reviewed by me
[2025-08-19 15:17] VITALS: BP 124/58
--- NOTE | 2025-08-19 15:22 | CM ---
CM following re: discharge planning.
Reviewed pt' chart, met with pt.
Per chart review, IR procedure (Doxy pleurodesis) tomorrow. Continue supportive care.
Pt lives alone in an apartment, daughter lives in the same apartment building and pt is independent in all areas [employer].
Pt has a RW, cane, raised toilet sit, shower chair, was at [facility] in 2023. Pt expressed her desire to return back home at discharge.
PT and OT will evaluate the pt to determine a level of care at discharge.
D/C plan: home with anticipated no needs vs VN vs DME.
CM will follow with discharge plan updates as hospitalization progresses
[2025-08-19] MEDS: LOVENOX SC (17:02)
[2025-08-19] MEDS: MORPHINE SULFATE 1 MG IV (18:20)
[2025-08-19] MEDS: BELBUCA BUCCAL ×2 (18:55→20:17)
[2025-08-19] MEDS: SEROQUEL 400 MG PO (21:43)
[2025-08-19] MEDS: PEPCID 20 MG PO (21:44)
[2025-08-19 23:00] VITALS: BP 105/55
[2025-08-20] MEDS: MORPHINE SULFATE 1 MG IV ×3 (01:40→18:10)
[2025-08-20] MEDS: TESSALON PERLES 100 MG PO ×4 (01:40→18:25)
--- NOTE | 2025-08-20 02:20 | DOWNTIME ---
There was a Interview Master Client Rn Palliative Downtime on 08/20/2025 from 0100 to 08/20/2025 at 0215. Downtime documentation of patient's care, including medication administrations, has been reconciled in the electronic record per guidelines. Refer to the
patient's paper chart under the miscellaneous tab to see printed paper medication records and downtime forms.
[2025-08-20 07:00] VITALS: BP 119/81
[2025-08-20] MEDS: CYMBALTA DELAYED RELEASE 60 MG PO (07:28)
[2025-08-20] MEDS: NEURONTIN 600 MG PO ×2 (07:28→20:19)
[2025-08-20] MEDS: LIPITOR 40 MG PO (07:29)
[2025-08-20] MEDS: NORCO 7.5/325 1 TABLET PO ×3 (07:29→20:18)
[2025-08-20] MEDS: BELBUCA BUCCAL ×6 (07:29→20:18)
[2025-08-20] MEDS: KLONOPIN 1 MG PO ×2 (07:29→11:54)
[2025-08-20] MEDS: PROTONIX 40 MG PO (07:29)
[2025-08-20] MEDS: NICODERM TRANSDERMAL 14 MG TRANSDERM (07:29)
[2025-08-20 08:12] LABS: Hematocrit 40.8 % (37.0-47.0); Hemoglobin 12.9 g/dL (12.0-16.0); Mean Corp Hgb Conc. 31.6 g/dL (33.0-37.0); Mean Corpuscular Volume 93.2 fL (81.0-99.0); Platelet Count 205 10^3/uL (130-400); Red Cell Dist. Width 13.8 % (11.5-14.5)
--- NOTE | 2025-08-20 08:42 | PTCARENOTE ---
CXR this AM showed worsening of pneumo. Right lung sounds completely diminished again, 90% on 4Lo2, pt in visible respiratory distress. Pt given PRN tessalon pearls and AM meds including pain medication, refusing belbuca this AM. Assisted pt to
bathroom and back, emotional support provided. CT intact with no signs of air leak, no kinks in tubing and no crepitus felt at site. CT set at -20 to wall suction, only 2mL of yellow output overnight - consistent with output from previous shifts.
Primary MD, pulm, and IRAD made aware, no new orders at this time.
[2025-08-20 09:20] LABS: Blood Urea Nitrogen 19 mg/dl (7-17); Calcium 9.5 mg/dl (8.4-10.2); Carbon Dioxide 27 mmol/L (22-30); Chloride 109 mmol/L (98-107); Estimated Creatinine Clearance 85 ml/min; Glucose 83 mg/dl (70-99); Potassium 4.2 mmol/L (3.5-5.1); Sodium 141 mmol/L (135-145); eGFR > 60.00
--- NOTE | 2025-08-20 11:38 | W.PN.PUL3 ---
Today's Communication / Plan
-
Chest tube malfunction again, with re-expansion of Ptx
Doxy pleurodesis delayed 24 hours per IR
Consideration for transfer to IMU to evaluate chest tube q4 to q2 to avoid further delays
IR to attempt again tomorrow
Assessment
-
70-year-old smoking female with history of underlying COPD, hypertension, hyperlipidemia, and distant history of left upper lobectomy/surgery in the for 'lung collapse' presented with increasing shortness of breath for 1 week felt to be COPD
exacerbation unresponsive to steroids doxycycline and came to the emergency room and found to have large right-sided pneumothorax-pulmonary consulted for COPD/pneumothorax 08/15/2025.
Large right pneumothorax status post chest tube 08/14/2025-interventional radiology
Recent COPD exacerbation
Recurrent ptx due to chest tube issues
Conditions present prior to admission:
COPD-last saw supply room clerk-Dr. Sumner[facility] about 5 years ago-maintained on Trelegy and albuterol, no oxygen
Cigarette smoker-1 pack/day.
Multiple pulmonary nodules-stable 04/12/2023 through 09/17/2024
Hypertension.
Hyperlipidemia.
Valvular disease.
Hysterectomy. Left upper lobe surgery-lobectomy versus pneumothorax related .
Plan
Respiratory decompensation due to pneumothorax in this patient with underlying COPD
Supplemental oxygen as needed-she is increased to 4L this AM due to re-expansion
Repeat CXR reviewed, increase suction to -30; improved
Chest tube kinked overnight, improved following correction
Chest tube kinked again today 08/20 with re-expansion
Doxy delayed
Nebulizers if needed
Patient on Trelegy as an outpatient
Avoid incentive spirometry
Chest tube placed by interventional radiology
Chest x-ray 08/15/2025 without evidence for pneumothorax
Chest tube currently on wall suction-Grade 1 air leak still noted with expiration. Continue chest tube to suction for now.
If air leak persists this week without resolution-may need CT surgery consult
Reported h/o left sided pneumothorax 25 years ago required 'surgical fusion' per patient.
We discussed doxy application with patient and daughter, they were agreeable, IR consult placed
If fails, we can have CTS evaluation
Potential CT chest-due for August yearly low-dose lung cancer screening CT
Outlined to patient multiple scenarios including fairly rapid removal of chest tube if no airleak as outlined above, however, explained that occasionally air leaks persist and there is need for chest tube repositioning, resizing, and even thoracic
surgical involvement-patient to wear different scenarios
Smoking cessation counseling
Nicotine patch if needed
DVT prophylaxis-on Lovenox
GI prophylaxis-on famotidine
Reviewed with nursing staff and care team
Outpatient pulm evaluation recommended-needs PFTs, ongoing smoking cessation counseling, yearly low-dose lung cancer screening CAT scan, etc.
Diagnostic data:
Chest x-ray 08/14/2025-large right pneumothorax, no shift of midline structures
Chest x-ray 08/15/2025-interval placement of right-sided chest tube without radiographic evidence for residual pneumothorax
CT [id number] 09/17/2024-scattered pulmonary nodules, no definitive new suspicious pulmonary nodules, ascending aorta appears dilated measuring 4.4 cm previously 4.2 cm when compared to 03/2023, right upper lobe 4 mm nodule, right middle lobe 4
mm nodule, right lower lobe three 3 mm nodule, left lower lobe unchanged 4 mm subpleural nodule
Total time spent on this consultation/encounter __55__ minutes which includes review of history, physical exam, medications, laboratory data, personal review of imaging, extensive review of outpatient records, discussion with care team and
respiratory therapy.
Subjective Data
-
Date of Service:
Date of Service: August 20, 2025
Chief Complaint: Pulmonary Follow Up
Subjective:
Kink in tube noted again, hypoxemia worsened
ptx re-expansion
Doxy planning, delayed
Objective Data
Data Reviewed
Vital Signs / I&O / Oxygen:
Vital Signs
Temp Pulse Resp BP Pulse Ox
98.5 F 94 20 119/81 92
08/20/25 07:00 08/20/25 07:00 08/20/25 07:00 08/20/25 07:00 08/20/25 07:37
Intake and Output
08/19/25 08/20/25 08/21/25
06:59 06:59 06:59
Intake Total 1080 / 1080 330 / 330
Output Total
Balance 1074 / 1074 326 / 326
SaO2 92
Nasal Cannula flow liters per 4
minute
Physical Exam
General: Comfortable and Other (NAD)
HEENT: Normocephalic, Anicteric and Moist Mucous Membranes
Cardiovascular: S1-S2 and Regular Rhythm
Respiratory: Clear, Non-Labored Respirations and Chest Tube
GI: Soft, Non Distended and Non Tender
Neurology: Awake, Alert, Oriented and No Motor Deficits
Skin: Warm and Dry
Labs/Micro/Reports
Lab Data
08/20/25 07:10
08/20/25 07:10
--- NOTE | 2025-08-20 12:01 | W.PN.HOSP.TC ---
Today's Communication/Plan
-
IR for doxycycline pleurodesis and repositioning of CT
Assessment / Plan
Assessment / Plan
Assessment:
SOB secondary to large right-sided pneumothorax-resolved symptoms
Large right-sided pneumothorax with collapse of the right lung
Acute hypoxic respiratory insufficiency on 2-4 L NC
- noted prior history of LUDMILA pneumothorax with lobectomy in
- s/p chest tube insertion 08/14
- Ongoing air leak-continue with chest tube and suction. suction increased to -30 on 08/18/25 but also with a kink in tube leading to large PTX formation
- now un-kinked and repeat AXR with small residual PTX but AM 08/20 with increasing PTX
- d/w pulm and patient/family; next step is IR for doxycycline pleurodesis and repositioning of CT.
- IR and pulm following
- eventual OP CT scan
Recent COPD exacerbation
- completed doxy and steroid course
- supportive care, cough suppressants
- No evidence of exacerbation
Essential HTN
- observe off BP Meds
HLD - statin
Valvular disease
Tobacco abuse
- nicotine patch
- cessation counselling provided
Anxiety/Depression
- continue meds
DVT ppx: Lovenox
Code: Full
Anticipated Discharge: > 48 hours
Subjective/Interval History
-
Date of Service: August 20, 2025
AM CXR with mod/large PTX
patient subjective more SOB, but remains on 4L NC
Objective Data
-
Labs:
Laboratory Results
08/20/25
07:10
WBC 10.1
Hgb 12.9
Hct 40.8
Plt Count 205
Sodium 141
Potassium 4.2
Chloride 109 H
Carbon Dioxide 27
BUN 19 H
Creatinine 0.6
Glucose 83
Calcium 9.5
Vital Signs:
Vital Signs
Temp Pulse Resp BP Pulse Ox
98.5 F 94 20 119/81 92
08/20/25 07:00 08/20/25 07:00 08/20/25 07:00 08/20/25 07:00 08/20/25 07:37
I&O
08/19/25 08/20/25 08/21/25
06:59 06:59 06:59
Intake Total 1080 / 1080 330 / 330
Output Total 4
Balance 1074 / 1074 326 / 326
Physical Exam
-
General: No Apparent Distress
HEENT: Normocephalic and Atraumatic
Respiratory: Chest Tubes; Negative Wheezes
Cardiac: Regular Rhythm and S1/S2
GI: Soft and Nontender
Genito-urinary: No Costovertebral Tender
Neuro: AO x 3
Hematologic / Lymphatic: No Lymphadenopathy
Psych: Calm
Data Reviewed
-
Total Time Spent with Patient (in minutes): 42
Labs: Labs Reviewed by me
[2025-08-20 12:10] VITALS: BP 195/96; BP_SYST 115
--- NOTE | 2025-08-20 12:26 | CM ---
CM following re: discharge planning.
Reviewed pt' chart.
Per chart review, IR procedure (Doxy pleurodesis) today. Continue supportive care.
Pt lives alone in an apartment, daughter lives in the same apartment building and pt is independent in all areas [employer].
Pt has a RW, cane, raised toilet sit, shower chair, was at [facility] in 2023. Pt expressed her desire to return back home at discharge.
PT and OT will evaluate the pt to determine a level of care at discharge.
D/C plan: home with anticipated no needs vs VN vs DME.
CM will follow with discharge plan updates as hospitalization progresses
[2025-08-20 12:58] VITALS: BP 147/73; BP_SYST 93
--- NOTE | 2025-08-20 13:20 | PTCARENOTE ---
Received pt back from [facility], new 16FR chest tube placed, pt visibly more comfortable. Dressing CDI, lung sounds crackling in right base. Diminished throughout. Commode placed to make sure chest tube is not moving too much, stat lock in place
underneath for security. No new orders at this time.
[2025-08-20 15:00] VITALS: BP 138/70
[2025-08-20] MEDS: LOVENOX SC (17:03)
[2025-08-20 19:00] VITALS: BP 134/61
[2025-08-20] MEDS: PEPCID 20 MG PO (22:10)
[2025-08-20] MEDS: SEROQUEL 400 MG PO (22:10)
[2025-08-20 23:10] VITALS: BP 138/68
[2025-08-21 03:07] VITALS: BP 131/63
[2025-08-21] MEDS: MORPHINE SULFATE 1 MG IV ×4 (03:08→20:15)
[2025-08-21 07:00] VITALS: BP 149/74
[2025-08-21] MEDS: NORCO 7.5/325 1 TABLET PO ×2 (07:42→20:59)
[2025-08-21] MEDS: KLONOPIN 1 MG PO ×2 (08:47→13:14)
[2025-08-21] MEDS: NEURONTIN 600 MG PO ×2 (08:49→20:59)
[2025-08-21] MEDS: LIPITOR 40 MG PO (08:49)
[2025-08-21] MEDS: PROTONIX 40 MG PO (08:49)
[2025-08-21] MEDS: NICODERM TRANSDERMAL 14 MG TRANSDERM (08:50)
[2025-08-21] MEDS: CYMBALTA DELAYED RELEASE 60 MG PO (08:50)
[2025-08-21] MEDS: BELBUCA BUCCAL ×4 (08:55→20:59)
--- NOTE | 2025-08-21 10:57 | W.PN.PUL3 ---
Today's Communication / Plan
-
Persistent airleak noted following upsized tube through ptx has improved
If persistent in next 24 hours and Doxy cannot be completed, will consult CTS
Patient and daughter aware of plan
Discussed case with IR and CTS
Assessment
-
70-year-old smoking female with history of underlying COPD, hypertension, hyperlipidemia, and distant history of left upper lobectomy/surgery in the for 'lung collapse' presented with increasing shortness of breath for 1 week felt to be COPD
exacerbation unresponsive to steroids doxycycline and came to the emergency room and found to have large right-sided pneumothorax-pulmonary consulted for COPD/pneumothorax 08/15/2025.
Large right pneumothorax status post chest tube 08/14/2025-interventional radiology
Recent COPD exacerbation
Recurrent ptx due to chest tube issues
Persistent air leak
Conditions present prior to admission:
COPD-last saw stummel selector-Dr. Sumner-[facility] about 5 years ago-maintained on Trelegy and albuterol, no oxygen
Cigarette smoker-1 pack/day.
Multiple pulmonary nodules-stable 04/12/2023 through 09/17/2024
Hypertension.
Hyperlipidemia.
Valvular disease.
Hysterectomy. Left upper lobe surgery-lobectomy versus pneumothorax related .
Plan
Respiratory decompensation due to pneumothorax in this patient with underlying COPD
Supplemental oxygen as needed-she is increased to 4L this AM due to re-expansion
Repeat CXR reviewed, increase suction to -30; improved
Chest tube kinked overnight, improved following correction
Chest tube kinked again today 08/20 with re-expansion
Doxy delayed due to persistent airleak
COPD noted not in AE
Nebulizers if needed
Patient on Trelegy as an outpatient
Avoid incentive spirometry
Chest tube placed by interventional radiology
Chest x-ray 08/15/2025 without evidence for pneumothorax
Chest tube currently on wall suction-Grade 1 air leak still noted with expiration. Continue chest tube to suction for now.
If air leak persists this week without resolution-may need CT surgery consult
Reported h/o left sided pneumothorax 25 years ago required 'surgical fusion' per patient.
We discussed doxy application with patient and daughter, they were agreeable, IR consult placed
Tube kinked again, IR upsized 08/20
Doxy postponed until 08/21--delayed due to persistent airleak--if remains the same in next 24 hours, will consult CTS
Potential CT chest-due for August yearly low-dose lung cancer screening CT
Smoking cessation counseling
Nicotine patch if needed
DVT prophylaxis-on Lovenox
GI prophylaxis-on famotidine
Reviewed with nursing staff and care team
Outpatient pulm evaluation recommended-needs PFTs, ongoing smoking cessation counseling, yearly low-dose lung cancer screening CAT scan, etc.
Diagnostic Data:
Chest x-ray 08/14/2025-large right pneumothorax, no shift of midline structures
Chest x-ray 08/15/2025-interval placement of right-sided chest tube without radiographic evidence for residual pneumothorax
CT [id number] 09/17/2024-scattered pulmonary nodules, no definitive new suspicious pulmonary nodules, ascending aorta appears dilated measuring 4.4 cm previously 4.2 cm when compared to 03/2023, right upper lobe 4 mm nodule, right middle lobe 4
mm nodule, right lower lobe three 3 mm nodule, left lower lobe unchanged 4 mm subpleural nodule
Total time spent on this consultation/encounter __55__ minutes which includes review of history, physical exam, medications, laboratory data, personal review of imaging, extensive review of outpatient records, discussion with care team and
respiratory therapy.
Subjective Data
-
Date of Service:
Date of Service: August 21, 2025
Chief Complaint: Pulmonary Follow Up
Subjective:
No new complaints, remains stable
Chest tube with persistent air leak
Objective Data
Data Reviewed
Vital Signs / I&O / Oxygen:
Vital Signs
Temp Pulse Resp BP Pulse Ox
98.8 F 84 16 149/74 95
08/21/25 07:00 08/21/25 07:00 08/21/25 07:00 08/21/25 07:00 08/21/25 07:00
Intake and Output
08/20/25 08/21/25 08/22/25
06:59 06:59 06:59
Intake Total 330 / 330 1320 / 1320
Output Total
Balance 326 / 326 1300 / 1300
SaO2 95
Nasal Cannula flow liters per 4
minute
Physical Exam
General: Comfortable and Other (NAD)
HEENT: Normocephalic, Anicteric and Moist Mucous Membranes
Cardiovascular: S1-S2 and Regular Rhythm
Respiratory: Clear, Non-Labored Respirations and Chest Tube
GI: Soft, Non Distended and Non Tender
Neurology: Awake, Alert, Oriented and No Motor Deficits
Skin: Warm and Dry
Labs/Micro/Reports
Lab Data
08/20/25 07:10
08/20/25 07:10
[2025-08-21 11:00] VITALS: BP 130/68
--- NOTE | 2025-08-21 11:01 | W.PN.HOSP.TC ---
Today's Communication/Plan
-
IR for doxycycline pleurodesis
Assessment / Plan
Assessment / Plan
Assessment:
SOB secondary to large right-sided pneumothorax-resolved symptoms
Large right-sided pneumothorax with collapse of the right lung
Acute hypoxic respiratory insufficiency on 2-4 L NC
- noted prior history of LDUMILA pneumothorax with lobectomy in
- s/p chest tube insertion 08/14
- patient had ongoing air leak with increased suction and also issues with tube kinking
- underwent upsizing/repositioning of tube on 08/20
- AM CXR with no PTX
- d/w pulm and patient/family; next step is IR for doxycycline pleurodesis and repositioning of CT.
- IR and pulm following
- eventual OP CT scan
Recent COPD exacerbation
- completed doxy and steroid course
- supportive care, cough suppressants
- No evidence of exacerbation
Essential HTN
- observe off BP Meds
HLD - statin
Valvular disease
Tobacco abuse
- nicotine patch
- cessation counselling provided
Anxiety/Depression
- continue meds
DVT ppx: Lovenox
Code: Full
Anticipated Discharge: Within 24 hours
Subjective/Interval History
-
Date of Service: August 21, 2025
pain manageable
denies significant SOB
Objective Data
-
Vital Signs:
Vital Signs
Temp Pulse Resp BP Pulse Ox
98.8 F 84 16 149/74 95
08/21/25 07:00 08/21/25 07:00 08/21/25 07:00 08/21/25 07:00 08/21/25 07:00
I&O
08/20/25 08/21/25 08/22/25
06:59 06:59 06:59
Intake Total 330 / 330 1320 / 1320
Output Total
Balance 326 / 326 1300 / 1300
Physical Exam
-
General: No Apparent Distress
HEENT: Normocephalic and Atraumatic
Respiratory: Chest Tubes
Cardiac: Regular Rhythm and S1/S2
GI: Soft and Nontender
Neuro: AO x 3
Psych: Calm
Data Reviewed
-
Total Time Spent with Patient (in minutes): 41
Labs: Labs Reviewed by me
--- NOTE | 2025-08-21 12:01 | W.PN.GENERIC ---
Assessment / Plan
-
IR asked to pleurodese right pleural space. At this current time it is too soon to attempt pleurodesis as there is still a persistent air leak. Recommend keeping chest tube to suction until air leak has resolved, then doing a clamp trial of at least
3 hours to make sure the lung remains fully expanded prior to performing pleurodesis, which will ensure the most successful outcome. Pt made aware of the rationale for the pleuorodesis as well as the plan.
Will continue to follow.
Physician Progress Note
Subjective
Pt laying in bed in NAD. She denies SOB, CP, and fever but admits to overall 'soreness'.
Objective
Vital Signs
Temp Pulse Resp BP Pulse Ox
98.8 F 84 16 149/74 95
08/21/25 07:00 08/21/25 07:00 08/21/25 07:00 08/21/25 07:00 08/21/25 07:00
Lab Results
08/20/25 07:10
08/20/25 07:10
--- NOTE | 2025-08-21 12:18 | CM ---
Per Attending patient scheduled for procedure in IR today
Money Counter will monitor for disposition needs and support accordingly
[2025-08-21 15:00] VITALS: BP 127/62
[2025-08-21] MEDS: LOVENOX 40 MG SC (18:23)
[2025-08-21 19:34] VITALS: BP 133/68
[2025-08-21] MEDS: PEPCID 20 MG PO (21:00)
[2025-08-21] MEDS: SEROQUEL 400 MG PO (21:01)
[2025-08-21 22:59] VITALS: BP 131/59
[2025-08-22 03:00] VITALS: BP 124/66; BP 127/72
[2025-08-22 07:00] VITALS: BP 160/76
[2025-08-22] MEDS: LIPITOR 40 MG PO (07:57)
[2025-08-22] MEDS: KLONOPIN 1 MG PO ×2 (07:57→12:09)
[2025-08-22] MEDS: CYMBALTA DELAYED RELEASE 60 MG PO (07:57)
[2025-08-22] MEDS: PROTONIX 40 MG PO (07:57)
[2025-08-22] MEDS: NICODERM TRANSDERMAL 14 MG TRANSDERM (07:57)
[2025-08-22] MEDS: NEURONTIN 600 MG PO ×2 (07:57→20:06)
[2025-08-22] MEDS: NORCO 7.5/325 1 TABLET PO ×2 (07:57→19:59)
[2025-08-22] MEDS: MORPHINE SULFATE 1 MG IV ×2 (07:58→12:09)
--- NOTE | 2025-08-22 09:21 | W.PN.PUL3 ---
Today's Communication / Plan
-
Airleak ongoing, chest tube remains patent
She is stable on RA
PFT obtained with moderate obstruction, continue nebs
CTS consult obtained, await further planning
Discussed with family at bedside
Assessment
-
70-year-old smoking female with history of underlying COPD, hypertension, hyperlipidemia, and distant history of left upper lobectomy/surgery in the for 'lung collapse' presented with increasing shortness of breath for 1 week felt to be COPD
exacerbation unresponsive to steroids doxycycline and came to the emergency room and found to have large right-sided pneumothorax-pulmonary consulted for COPD/pneumothorax 08/15/2025.
Large right pneumothorax status post chest tube 08/14/2025-interventional radiology
Recent COPD exacerbation
Recurrent ptx due to chest tube issues
Persistent air leak
Conditions present prior to admission:
COPD-last saw holistic pulser-Dr. Sumner-[facility] about 5 years ago-maintained on Trelegy and albuterol, no oxygen
Cigarette smoker-1 pack/day.
Multiple pulmonary nodules-stable 04/12/2023 through 09/17/2024
Hypertension.
Hyperlipidemia.
Valvular disease.
Hysterectomy. Left upper lobe surgery-lobectomy versus pneumothorax related .
Plan
Respiratory decompensation due to pneumothorax in this patient with underlying COPD
Supplemental oxygen as needed-she is increased to 4L this AM due to re-expansion
Repeat CXR reviewed, increase suction to -30; improved
Chest tube kinked overnight, improved following correction
Chest tube kinked again today 08/20 with re-expansion
Doxy delayed due to persistent airleak
COPD noted not in AE
Nebulizers if needed
Patient on Trelegy as an outpatient
PFT reviewed-moderate obstruction
Chest tube placed by interventional radiology
Chest x-ray 08/15/2025 without evidence for pneumothorax
Chest tube currently on wall suction-Grade 1 air leak still noted with expiration. Continue chest tube to suction for now.
If air leak persists this week without resolution-may need CT surgery consult
Reported h/o left sided pneumothorax 25 years ago required 'surgical fusion' per patient.
We discussed doxy application with patient and daughter, they were agreeable, IR consult placed
Tube kinked again, IR upsized 08/20
Doxy postponed until 08/21--delayed due to persistent airleak--if remains the same in next 24 hours, will consult CTS
Potential CT chest-due for August yearly low-dose lung cancer screening CT
Smoking cessation counseling
Nicotine patch if needed
DVT prophylaxis-on Lovenox
GI prophylaxis-on famotidine
Reviewed with nursing staff and care team
Outpatient pulm evaluation recommended-needs PFTs, ongoing smoking cessation counseling, yearly low-dose lung cancer screening CAT scan, etc.
Diagnostic Data:
Chest x-ray 08/14/2025-large right pneumothorax, no shift of midline structures
Chest x-ray 08/15/2025-interval placement of right-sided chest tube without radiographic evidence for residual pneumothorax
CT [id number] 09/17/2024-scattered pulmonary nodules, no definitive new suspicious pulmonary nodules, ascending aorta appears dilated measuring 4.4 cm previously 4.2 cm when compared to 03/2023, right upper lobe 4 mm nodule, right middle lobe 4
mm nodule, right lower lobe three 3 mm nodule, left lower lobe unchanged 4 mm subpleural nodule
Total time spent on this consultation/encounter __55__ minutes which includes review of history, physical exam, medications, laboratory data, personal review of imaging, extensive review of outpatient records, discussion with care team and
respiratory therapy.
Subjective Data
-
Date of Service:
Date of Service: August 22, 2025
Chief Complaint: Pulmonary Follow Up
Subjective:
Remains with airleak, no new complaints
Stable on RA
Family at bedside
Objective Data
Data Reviewed
Vital Signs / I&O / Oxygen:
Vital Signs
Temp Pulse Resp BP Pulse Ox
98.9 F 82 18 160/76 94
08/22/25 07:00 08/22/25 07:00 08/22/25 07:00 08/22/25 07:00 08/22/25 07:00
Intake and Output
08/21/25 08/22/25 08/23/25
06:59 06:59 06:59
Intake Total 1320 / 1320 360 / 360
Output Total
Balance 1300 / 1300 348 / 348
SaO2 94
Nasal Cannula flow liters per 4
minute
Physical Exam
General: Comfortable and Other (NAD)
HEENT: Normocephalic, Anicteric and Moist Mucous Membranes
Cardiovascular: S1-S2 and Regular Rhythm
Respiratory: Clear, Non-Labored Respirations and Chest Tube
GI: Soft, Non Distended and Non Tender
Neurology: Awake, Alert, Oriented and No Motor Deficits
Skin: Warm and Dry
Labs/Micro/Reports
Lab Data
08/20/25 07:10
08/20/25 07:10
--- NOTE | 2025-08-22 09:23 | CONSULT.CT ---
Consultation
-
Date/Time Consultation Requested: 08/22/25 1130
Date/Time Consultation Performed: 08/22 1145
Requesting Provider: Perez
Performing Provider: Lyn ARZATE for Dr. Gonzales
Reason for Consultation: Persistent PTX
Patient History
Physicians
Family Physician: NOT KNOW UNKNOWN - PT DOES
History of Present Illness
70-year-old smoking female with history of underlying COPD, hypertension, hyperlipidemia, and distant history of left upper wedge in the for 'lung collapse' presented with increasing shortness of breath for 1 week felt to be COPD exacerbation
unresponsive to steroids doxycycline and came to the emergency room and found to have large right-sided pneumothorax. A CT was placed in the ER, however, there remains a persistent AL and a few CT kinks so CT was upsized from a 14fr Thal-Quick CT to
a 16Fr chest tube. Patient is still noted to have a pneumothorax on this morning's CXR, however, she is no longer amendable to a a doxy pleurodesis. CT Surgery was consulted for surgical evaluation of the persistent pneumothorax.
Past Medical History
Past Medical History: HTN, Hypercholesterolemia and Valvular Disease
Left upper lobe surgery-lobectomy versus pneumothorax related
Hysterectomy
Past Surgical History
Left upper lobe surgery-lobectomy versus pneumothorax related
Social History
Alcohol: None
Drug: None
Tobacco: Smoker
Personal:
Living: With Family
Employment: Retired
Allergies
Allergy/AdvReac Type Severity Reaction Status Date / Time
No Known Allergies Allergy Verified 10/28/24 19:17
Home Medications
�Medication �Instructions �Recorded �Confirmed �Type
atorvastatin 40 mg tablet 40 mg PO DAILY High cholesterol 10/25/20 08/14/25 History
buprenorphine HCl 750 mcg buccal 750 mcg BC BID Pain 10/25/20 08/14/25 History
film (Belbuca)
hydrocodone 7.5 mg-acetaminophen 1 tab PO BID 08/08/23 10/16/25 History
325 mg tablet
albuterol sulfate 90 mcg/actuation 2 puff inhalation R Q4HPRN PRN 08/14/25 08/14/25 History
aerosol inhaler sob/wheezing
clonazepam 1 mg tablet 1 mg PO BID@0800,1200 08/14/25 08/14/25 History
duloxetine 60 mg capsule,delayed 60 mg PO DAILY 08/14/25 08/14/25 History
release
famotidine 20 mg tablet 20 mg PO HS 08/14/25 08/14/25 History
fluticasone fur. 100 mcg-umeclid 1 inh inhalation R DAILY 08/14/25 08/14/25 History
62.5 mcg-vilant 25 mcg
inhalat.powder (Trelegy Ellipta)
gabapentin 300 mg capsule 600 mg PO BID 08/14/25 08/14/25 History
omeprazole 40 mg capsule,delayed 40 mg PO DAILY 08/14/25 08/14/25 History
release
quetiapine 200 mg tablet 400 mg PO HS 08/14/25 08/14/25 History
Review of Systems
-
History Source: Patient
General: Reports Fatigue
HEENT: Reports Sore Throat
Respiratory: Reports SOB and Cough
Cardiac: Reports No Symptoms and Known Vascular Disease
Abdomen/GI: Reports No Symptoms
: Reports No Symptoms
Musculoskeletal: Reports No Symptoms
Skin: Reports No Symptoms
Neurological: Reports No Symptoms
Vascular: Reports No Symptoms
Physical Exam
Vital Signs
Temp 98.9 F 08/22/25 07:00
Temp route: Oral 08/22/25 07:00
Pulse 82 08/22/25 07:00
Rhythm: Normal sinus rhythm 08/21/25 20:00
With- Sinus tachycardia 08/20/25 20:00
Resp Rate 18 08/22/25 07:00
Blood pressure 160/76 08/22/25 07:00
Blood pressure extremity used: Left upper arm 08/22/25 07:00
Position: Lying 08/22/25 07:00
MAP (cuff-Graham Monitor) 108 08/14/25 14:00
SaO2 94 08/22/25 07:00
Nasal Cannula flow liters per minute 4 08/22/25 07:00
Oxygen Mode of Delivery Room air 08/22/25 03:00
Other oxygen comment humidified 08/21/25 22:44
Acceptable pain level during hospitalization? 0 08/14/25 09:24
Can the patient verbally communicate their pain? Yes 08/22/25 07:58
Pain scale ratin 08/22/25 07:58
Actual Weight 59.874 kg 08/14/25 17:43
Body Mass Index (BMI) 20.7 08/14/25 17:43
Labs
08/20/25 07:10
08/20/25 07:10
Troponin I 0.019 ng/ml 08/14/25 10:34
Yon-R-Hygeqtxqvql Pept 1040 pg/ml 08/14/25 10:34
Exam
General: Comfortable
HEENT: Moist Mucous Membranes
Respiratory: Crackles, Accessory Muscle Use and Other (SQ emphysema palpated)
Cardiac: S1/S2 and Murmur
GI: Soft and Flat
Rectal: Deferred by Provider
Skin: Dry
Neuro: AO x 3
Lymph: No Lymphadenopathy
Psych: Calm
Assessment / Plan
-
70 y/o female with PMHx listed above presents to [facility] ER after 1 week of SOB and was found to have a large PTX. A CT was placed and now has a persistent +[address] Surgery was consulted for surgical evaluation.
#Persistent AL
- Obtained Non-con CT to evaluate for a bleb
- Decrease suction at -20mmHG and repeat CXR in one hr
- Bedside PFTs ordered
[2025-08-22] MEDS: BELBUCA BUCCAL ×4 (10:49→21:06)
[2025-08-22] MEDS: DUONEB 3 ML INH (10:56)
[2025-08-22 11:00] VITALS: BP 137/69
[2025-08-22] MEDS: TESSALON PERLES 100 MG PO ×2 (12:09→22:20)
--- NOTE | 2025-08-22 14:05 | CM ---
CM following re: discharge planning.
Reviewed pt' chart.
Per chart review, IR today for further chest tube management, possible thoracic surgery. Continue supportive care.
Pt lives alone in an apartment, daughter lives in the same apartment building and pt is independent in all areas [employer].
Pt has a RW, cane, raised toilet sit, shower chair, was at [facility] in 2023. Pt expressed her desire to return back home at discharge.
PT and OT will evaluate the pt to determine a level of care at discharge.
D/C plan: home with anticipated no needs vs VN vs DME.
CM will follow with discharge plan updates as hospitalization progresses
[2025-08-22 15:00] VITALS: BP 127/72
--- NOTE | 2025-08-22 15:28 | W.PN.HOSP.TC ---
Today's Communication/Plan
-
wean suction towards waterseal per d/w CT surg and pulm
Assessment / Plan
Assessment / Plan
Assessment:
SOB secondary to large right-sided pneumothorax-resolved symptoms
Large right-sided pneumothorax with collapse of the right lung
Acute hypoxic respiratory insufficiency on 2-4 L NC
- noted prior history of LUDMILA pneumothorax with lobectomy in
- s/p chest tube insertion 08/14
- patient had ongoing air leak with increased suction and also issues with tube kinking
- underwent upsizing/repositioning of tube on 08/20
- persistent air leak with upsized tube 08/22
- CT chest 08/22: Advanced emphysematous disease within the right upper lobe with apical bullous disease. Moderate amount of subcutaneous emphysema within the lateral right chest wall
- CT surgery consulted; recommended weaning off suction towards water-seal
- IR and pulm following
Recent COPD exacerbation
- completed doxy and steroid course
- supportive care, cough suppressants
- No evidence of exacerbation
Essential HTN
- observe off BP Meds
HLD - statin
Valvular disease
Tobacco abuse
- nicotine patch
- cessation counselling provided
Anxiety/Depression
- continue meds
DVT ppx: Lovenox
Code: Full
Anticipated Discharge: > 48 hours
Subjective/Interval History
-
Date of Service: August 22, 2025
chest tube with persistent leaks
patient on 94% RA
Objective Data
-
Vital Signs:
Vital Signs
Temp Pulse Resp BP Pulse Ox
98.9 F 82 18 137/69 94
08/22/25 11:00 08/22/25 11:00 08/22/25 11:00 08/22/25 11:00 08/22/25 14:08
I&O
08/21/25 08/22/25 08/23/25
06:59 06:59 06:59
Intake Total 1320 / 1320 360 / 360
Output Total
Balance 1300 / 1300 348 / 348 -
Physical Exam
-
General: No Apparent Distress
HEENT: Normocephalic and Atraumatic
Respiratory: Chest Tubes
Cardiac: Regular Rhythm and S1/S2
Genito-urinary: No Costovertebral Tender
Neuro: AO x 3
Psych: Calm
Data Reviewed
-
Total Time Spent with Patient (in minutes): 41
Labs: Labs Reviewed by me
[2025-08-22] MEDS: LOVENOX 40 MG SC (17:09)
[2025-08-22] MEDS: TYLENOL 650 MG PO (17:11)
[2025-08-22 19:10] VITALS: BP 153/71
[2025-08-22] MEDS: PEPCID 20 MG PO (22:20)
[2025-08-22] MEDS: SEROQUEL 400 MG PO (22:21)
[2025-08-22 23:23] VITALS: BP 129/61
--- NOTE | 2025-08-23 00:07 | W.PN.CT ---
Today's Communication / Plan
-
Plan:
-Cont. chest tube to suction
-Chest tube currently at -20 cmH2o wall suction, +1 intermittent air leak noted. Suction on wall was noted to be below 80 on my examination, increased to 100
-Probable sliver of a right apical ptx on cxr this AM on my assessment, F/U official report
Assessment / Plan
-
Assessment:
-Larger right pneumothorax (~50%) on 08/14/25
-S/P 14F chest tube placement by IR 08/14/25
-Chest tube kinked S/P 16F chest tube placement by IR 08/20/25
-Subcutaneous emphysema
-Advanced emphysematous disease/COPD
-Apical bullous disease
-Tobacco Abuse (40 pk/yr; currently 1pk/d)
-Bipolar disease
-Anxiety disorder
-PNA 2017
-HTN
-HLD
-Ascending aorta dilatation (4.5 cm)
-S/P Left upper lobectomy,
-S/p Hysterectomy
Discussed patient care with: Cardiology, Nursing, Respiratory Therapy, Pharmacy and Care Team
Subjective
-
Date of Service: August 23, 2025
Pt c/o non-productive cough and incisional pain, denies SOB
Objective Data
-
Lab Results
08/20/25 07:10
08/20/25 07:10
Vital Signs
Vital Signs
Temp Pulse Resp BP Pulse Ox
98.6 F 65 17 129/61 94
08/22/25 23:23 08/22/25 23:23 08/22/25 23:23 08/22/25 23:23 08/22/25 23:23
CT Intake/Output/Weight
08/22/25 08/22/25 08/23/25
06:59 18:59 06:59
Intake Total 240 / 360 720 / 720
Output Total
Balance 234 / 348 705 / 705
SaO2: 94 (RA)
Physical Exam
-
General: Awake, Oriented and AOx3
Cardiovascular: Regular rate & rhythm, No Murmurs, No Rub and No Gallop
Respiratory: Decreased Breath Sounds (on right)
Sternum: Stable
Incision: Clean, Dry, Intact and Dressing Intact
Extremities: No Edema
Data Reviewed
-
Lab Results: Results Reviewed
Medications: Active Meds Reviewed
Chest X-Ray: Report Reviewed and Image Reviewed
CT Scan: Report Reviewed and Image Reviewed
ECG: Report Reviewed and Image Reviewed
[2025-08-23 03:18] VITALS: BP 132/53
[2025-08-23] MEDS: TYLENOL 650 MG PO (05:43)
[2025-08-23] MEDS: TESSALON PERLES 100 MG PO ×3 (05:43→23:26)
[2025-08-23 07:00] VITALS: BP 144/68
[2025-08-23] MEDS: CYMBALTA DELAYED RELEASE 60 MG PO (08:14)
[2025-08-23] MEDS: NICODERM TRANSDERMAL 14 MG TRANSDERM (08:15)
[2025-08-23] MEDS: KLONOPIN 1 MG PO ×2 (08:15→12:25)
[2025-08-23] MEDS: NORCO 7.5/325 1 TABLET PO ×3 (08:15→20:03)
[2025-08-23] MEDS: LIPITOR 40 MG PO (08:15)
[2025-08-23] MEDS: NEURONTIN 600 MG PO ×2 (08:19→20:02)
[2025-08-23] MEDS: BELBUCA BUCCAL ×4 (08:19→20:03)
[2025-08-23] MEDS: PROTONIX 40 MG PO (08:19)
--- NOTE | 2025-08-23 10:20 | W.PN.HOSP.TC ---
Today's Communication/Plan
-
decrease suction to -15cm ; repeat CXR pending
Assessment / Plan
Assessment / Plan
Assessment:
SOB secondary to large right-sided pneumothorax-resolved symptoms
Large right-sided pneumothorax with collapse of the right lung
Acute hypoxic respiratory insufficiency on 2-4 L NC
- noted prior history of LUDMILA pneumothorax with lobectomy in
- s/p chest tube insertion 08/14
- patient had ongoing air leak with increased suction and also issues with tube kinking externally
- underwent upsizing/repositioning of tube on 08/20
- persistent air leak with upsized tube 08/22
- CT chest 08/22: Advanced emphysematous disease within the right upper lobe with apical bullous disease. Moderate amount of subcutaneous emphysema within the lateral right chest wall
- CT surgery consulted; recommended weaning off suction towards water-seal; currently at -15cm
- follow serial daily imaging along with as needed CXR for changes in chest tube orders
- IR/Pulm/CT surg following
Recent COPD exacerbation
- completed doxy and steroid course
- supportive care, cough suppressants
- No evidence of exacerbation
Essential HTN
- observe off BP Meds
HLD - statin
Valvular disease
Tobacco abuse
- nicotine patch
- cessation counselling provided
Anxiety/Depression
- continue meds
DVT ppx: Lovenox
Code: Full
Anticipated Discharge: > 48 hours
Subjective/Interval History
-
Date of Service: August 23, 2025
nonproductive cough, denies sob
mild pain around chest tube site
suction further decreased to -15
Objective Data
-
Vital Signs:
Vital Signs
Temp Pulse Resp BP Pulse Ox
98.5 F 83 20 144/68 94
08/23/25 07:00 08/23/25 07:00 08/23/25 07:00 08/23/25 07:00 08/23/25 07:01
I&O
08/22/25 08/23/25 08/24/25
06:59 06:59 06:59
Intake Total 360 / 360 1200 / 1200
Output Total
Balance 348 / 348 1181 / 1181
Physical Exam
-
General: No Apparent Distress
HEENT: Normocephalic and Atraumatic
Respiratory: Chest Tubes; Negative Wheezes
Cardiac: Regular Rhythm and S1/S2
GI: Soft and Nontender
Musculoskeletal: No Edema
Neuro: AO x 3
Psych: Calm
Data Reviewed
-
Total Time Spent with Patient (in minutes): 42
Labs: Labs Reviewed by me
[2025-08-23 11:00] VITALS: BP 141/78
[2025-08-23 15:00] VITALS: BP 140/69
--- NOTE | 2025-08-23 15:22 | W.PN.PUL3 ---
Today's Communication / Plan
-
No airleak seen in Pleur-evac waterseal chamberthis afternoon
Removed from suction and leave on waterseal overnight with repeat CXR tomorrow AM (08/24)
Consider pleurodesis prior to chest tube removal
CT surgery consulted and recs appreciated
She is stable on RA
PFT obtained with moderate obstruction, continue nebs
Assessment
-
70-year-old smoking female with history of underlying COPD, hypertension, hyperlipidemia, and distant history of left upper lobectomy/surgery in the for 'lung collapse' presented with increasing shortness of breath for 1 week felt to be COPD
exacerbation unresponsive to steroids doxycycline and came to the emergency room and found to have large right-sided pneumothorax-pulmonary consulted for COPD/pneumothorax 08/15/2025.
Large right pneumothorax status post chest tube 08/14/2025-interventional radiology
Recent COPD exacerbation
Recurrent ptx due to chest tube issues
Persistent air leak
Conditions present prior to admission:
COPD-last saw core piler-Dr. [facility] about 5 years ago-maintained on Trelegy and albuterol, no oxygen
Cigarette smoker-1 pack/day.
Multiple pulmonary nodules-stable 04/12/2023 through 09/17/2024
Hypertension.
Hyperlipidemia.
Valvular disease.
Hysterectomy. Left upper lobe surgery-lobectomy versus pneumothorax related .
Plan
Respiratory decompensation due to pneumothorax in this patient with underlying COPD
Currently on room air
CXR this morning shows small right apical pneumothorax
CXR repeated and shows resolution of PTX; no airleak seen in waterseal chamber.
Remove suction and repeat CXR tomorrow AM.
Consider pleurodesis before chest tube removal
COPD noted not in AE
Nebulizers if needed
Patient on Trelegy as an outpatient
PFT reviewed-moderate obstruction
Chest tube placed by interventional radiology
Chest x-ray 08/15/2025 without evidence for pneumothorax
CT surgery consulted given persistent airleak prior to today (08/23)
Reported h/o left sided pneumothorax 25 years ago required 'surgical fusion' per patient.
Dr. Diaz discussed doxy application with patient and daughter, they were agreeable, IR consult placed
Tube kinked again, IR upsized 08/20
Doxy postponed until 08/21--delayed due to persistent airleak
Potential CT chest-due for August yearly low-dose lung cancer screening CT
Smoking cessation counseling
Nicotine patch if needed
DVT prophylaxis-on Lovenox
GI prophylaxis-on famotidine
Reviewed with nursing staff and care team
Outpatient pulm evaluation recommended-needs PFTs, ongoing smoking cessation counseling, yearly low-dose lung cancer screening CAT scan, etc.
Diagnostic Data:
Chest x-ray 08/14/2025-large right pneumothorax, no shift of midline structures
Chest x-ray 08/15/2025-interval placement of right-sided chest tube without radiographic evidence for residual pneumothorax
CT [id number] 09/17/2024-scattered pulmonary nodules, no definitive new suspicious pulmonary nodules, ascending aorta appears dilated measuring 4.4 cm previously 4.2 cm when compared to 03/2023, right upper lobe 4 mm nodule, right middle lobe 4
mm nodule, right lower lobe three 3 mm nodule, left lower lobe unchanged 4 mm subpleural nodule
(patient was seen and evaluated on 08/23/2025) Total time spent on this consultation/encounter __38__ minutes which includes review of history, physical exam, medications, laboratory data, personal review of imaging, extensive review of outpatient
records, discussion with care team and respiratory therapy.
Subjective Data
-
Date of Service:
Date of Service: August 23, 2025
Chief Complaint: Pulmonary Follow Up
Subjective:
Patient seen and evaluated today at bedside (Late note entry). CXR this morning shows persistent right apical pneumothorax, small. She feels well. Has chest pain at the chest tube insertion site otherwise denies SOB, BABB, fevers or chills.
Review of Systems
General: Other ( negative unless mentioned above)
Objective Data
Data Reviewed
Vital Signs / I&O / Oxygen:
Vital Signs
Temp Pulse Resp BP Pulse Ox
98.5 F 83 20 144/68 94
08/23/25 07:00 08/23/25 07:00 08/23/25 07:00 08/23/25 07:00 08/23/25 07:01
Intake and Output
08/22/25 08/23/25 08/24/25
06:59 06:59 06:59
Intake Total 360 / 360 1200 / 1200
Output Total
Balance 348 / 348 1181 / 1181
SaO2 94
Nasal Cannula flow liters per 4
minute
Physical Exam
General: Respiratory Distress (negative), Comfortable and Other (NAD)
HEENT: Normocephalic, Anicteric and Moist Mucous Membranes
Cardiovascular: S1-S2 and Peripheral Edema (negative)
Respiratory: Clear, Non-Labored Respirations, Chest Tube (right hemithorax) and Other (diminished breath sounds bilaterally)
GI: Soft, Non Distended and Non Tender
Neurology: Awake, Alert, Oriented and Tremors (negative)
Skin: Warm and Dry
Labs/Micro/Reports
Lab Data
08/20/25 07:10
08/20/25 07:10
[2025-08-23] MEDS: MORPHINE SULFATE 1 MG IV (16:08)
[2025-08-23] MEDS: LOVENOX 40 MG SC (17:42)
--- NOTE | 2025-08-23 17:55 | PTCARENOTE ---
pt's CT down to -10 suction, if SOB get CXray per fishing instructor
[2025-08-23 19:10] VITALS: BP 148/75
--- NOTE | 2025-08-23 21:15 | PTCARENOTE ---
Physician disconnected chest tube from suction. Now to water seal. Instructed to TT w/any changes overnight.
[2025-08-23] MEDS: SEROQUEL 400 MG PO (21:42)
[2025-08-23] MEDS: PEPCID 20 MG PO (21:43)
[2025-08-23 23:00] VITALS: BP 116/57
[2025-08-24 03:15] VITALS: BP 121/66
--- NOTE | 2025-08-24 03:45 | W.PN.CT ---
Today's Communication / Plan
-
Plan:
-Chest tube placed on water seal last night, 08/23/25
-No air leak noted this AM, cannot appreciate a ptx on cxr this AM, SQ emphysema present, f/u official report
-Dr. Diaz to see this AM
Assessment / Plan
-
Assessment:
-Larger right pneumothorax (~50%) on 08/14/25
-S/P 14F chest tube placement by IR 08/14/25
-Chest tube kinked S/P 16F chest tube placement by IR 08/20/25
-Subcutaneous emphysema
-Advanced emphysematous disease/COPD
-Apical bullous disease
-Tobacco Abuse (40 pk/yr; currently 1pk/d)
-Bipolar disease
-Anxiety disorder
-PNA 2017
-HTN
-HLD
-Ascending aorta dilatation (4.5 cm)
-S/P Left upper lobectomy,
-S/p Hysterectomy
Discussed patient care with: Cardiology, Nursing, Respiratory Therapy, Pharmacy and Care Team
Subjective
-
Date of Service: August 24, 2025
No issues overnight. C/O cough but denies SOB
Objective Data
-
Lab Results
08/20/25 07:10
08/20/25 07:10
Vital Signs
Vital Signs
Temp Pulse Resp BP Pulse Ox
98.1 F 85 16 116/57 94
08/23/25 23:00 08/23/25 23:00 08/23/25 23:00 08/23/25 23:00 08/24/25 01:09
CT Intake/Output/Weight
08/23/25 08/23/25 08/24/25
06:59 18:59 06:59
Intake Total 480 / 1200 1320 / 1320
Output Total
Balance 476 / 1181 1315 / 1315
SaO2: 94 (RA)
Physical Exam
-
General: Awake, Oriented and AOx3
Cardiovascular: Regular rate & rhythm, No Murmurs, No Rub and No Gallop
Respiratory: Decreased Breath Sounds (on right, otherwise clear)
Sternum: Stable
Incision: Clean, Dry, Intact and Dressing Intact
Extremities: Other (+trace edema)
Data Reviewed
-
Lab Results: Results Reviewed
Medications: Active Meds Reviewed
Chest X-Ray: Report Reviewed and Image Reviewed
CT Scan: Report Reviewed and Image Reviewed
ECG: Report Reviewed and Image Reviewed
[2025-08-24 07:18] VITALS: BP 169/76
[2025-08-24] MEDS: NORCO 7.5/325 1 TABLET PO ×3 (07:54→19:40)
[2025-08-24] MEDS: KLONOPIN 1 MG PO ×2 (07:54→11:52)
[2025-08-24] MEDS: LIPITOR 40 MG PO (07:54)
[2025-08-24] MEDS: CYMBALTA DELAYED RELEASE 60 MG PO (07:54)
[2025-08-24] MEDS: NEURONTIN 600 MG PO ×2 (07:54→19:40)
[2025-08-24] MEDS: BELBUCA BUCCAL ×4 (07:55→21:14)
[2025-08-24] MEDS: NICODERM TRANSDERMAL 14 MG TRANSDERM (07:55)
[2025-08-24] MEDS: PROTONIX 40 MG PO (07:59)
[2025-08-24] MEDS: TESSALON PERLES 100 MG PO ×3 (09:31→21:56)
[2025-08-24 11:01] VITALS: BP 128/61
--- NOTE | 2025-08-24 11:13 | W.PN.HOSP.TC ---
Today's Communication/Plan
-
continue water-seal
AM CXR
follow CT and pulm recs
possible Heimlich valve as next step
Assessment / Plan
Assessment / Plan
Assessment:
SOB secondary to large right-sided pneumothorax-resolved symptoms
Large right-sided pneumothorax with collapse of the right lung
Acute hypoxic respiratory insufficiency on 2-4 L NC
- noted prior history of LUDMILA pneumothorax with lobectomy in
- s/p chest tube insertion 08/14
- patient had ongoing air leak with increased suction and also issues with tube kinking externally
- underwent upsizing/repositioning of tube on 08/20
- persistent air leak with upsized tube 08/22
- CT chest 08/22: Advanced emphysematous disease within the right upper lobe with apical bullous disease. Moderate amount of subcutaneous emphysema within the lateral right chest wall
- CT surgery following; chest tube weaned from suction to water seal
- follow serial daily imaging along with as needed CXR for changes in chest tube orders
- IR/Pulm/CT surg following
Recent COPD exacerbation
- completed doxy and steroid course
- supportive care, cough suppressants
- No evidence of exacerbation
Essential HTN
- observe off BP Meds
HLD - statin
Valvular disease
Tobacco abuse
- nicotine patch
- cessation counselling provided
Anxiety/Depression
- continue meds
DVT ppx: Lovenox
Code: Full
Anticipated Discharge: > 48 hours
Subjective/Interval History
-
Date of Service: August 24, 2025
AM CXR without PTX while on waterseal
denies any new complaints
Objective Data
-
Vital Signs:
Vital Signs
Temp Pulse Resp BP Pulse Ox
98.8 F 85 16 128/61 94
08/24/25 11:01 08/24/25 11:01 08/24/25 11:01 08/24/25 11:01 08/24/25 11:01
I&O
08/23/25 08/24/25 08/25/25
06:59 06:59 06:59
Intake Total 1200 / 1200 1560 / 1560
Output Total
Balance 1181 / 1181 1555 / 1555
Physical Exam
-
General: No Apparent Distress
HEENT: Normocephalic and Atraumatic
Respiratory: Chest Tubes; Negative Wheezes
Cardiac: Regular Rhythm and S1/S2
GI: Soft and Nontender
Musculoskeletal: No Edema
Neuro: AO x 3
Hematologic / Lymphatic: No Lymphadenopathy
Psych: Calm
Data Reviewed
-
Total Time Spent with Patient (in minutes): 42
Labs: Labs Reviewed by me
--- NOTE | 2025-08-24 13:34 | W.PN.PUL3 ---
Today's Communication / Plan
-
No airleak seen in Pleur-evac waterseal chamber since 08/23
Chest tube removed from suction on evening of 08/23; leave on waterseal with repeat CXR tomorrow AM (08/25)
Pain control
CT surgery consulted and recs appreciated
Tentative plan is for discharge with Heimlich valve
She is stable on RA
PFT obtained with moderate obstruction, continue nebs
Avoid incentive spirometer as this can worsen the pneumothorax
Pulmonary service will continue to follow along
Assessment
-
70-year-old smoking female with history of underlying COPD, hypertension, hyperlipidemia, and distant history of left upper lobectomy/surgery in the for 'lung collapse' presented with increasing shortness of breath for 1 week felt to be COPD
exacerbation unresponsive to steroids doxycycline and came to the emergency room and found to have large right-sided pneumothorax-pulmonary consulted for COPD/pneumothorax 08/15/2025.
Large right pneumothorax status post chest tube 08/14/2025-interventional radiology
Recent COPD exacerbation
Recurrent ptx due to chest tube issues
Persistent air leak � now resolved
Conditions present prior to admission:
COPD-last saw rebar worker-Dr. Sumner[facility]' about 5 years ago-maintained on Trelegy and albuterol, no oxygen
Cigarette smoker-1 pack/day.
Multiple pulmonary nodules-stable 04/12/2023 through 09/17/2024
Hypertension.
Hyperlipidemia.
Valvular disease.
Hysterectomy. Left upper lobe surgery-lobectomy versus pneumothorax related .
Plan
Respiratory decompensation due to pneumothorax in this patient with underlying COPD
Currently on room air breathing comfortably
CXR as of 08/23 shows resolved right-sided pneumothorax; CXR from today (08/24) continues to show resolved pneumothorax and chest tube was placed to waterseal on the evening of 08/23
There is no airleak in waterseal chamber today (08/24) and there was none on evening of 08/23 even
Keep chest tube to continuous waterseal
CT surgery was consulted and given the high risk for pneumothorax recurrence, tentative plan is to discharge with Heimlich valve and then outpatient office follow-up with CT surgery as well as our office
Chemical pleurodesis was being considered prior to chest tube removal, however family not interested in this given the pain as well as recommendations against this by CT surgeon, Dr. Diaz (as per family)
COPD noted not currently in AE
Nebulizers if needed
Patient on Trelegy as an outpatient
PFT reviewed-moderate obstruction
Chest tube placed by interventional radiology
Chest x-ray 08/15/2025 without evidence for pneumothorax
Reported h/o left sided pneumothorax 25 years ago required 'surgical fusion' per patient.
Tube kinked again, IR upsized 08/[address] chest prior to discharge-due for August yearly low-dose lung cancer screening CT
Smoking cessation counseling
Nicotine patch if needed
DVT prophylaxis-on Lovenox
GI prophylaxis-on famotidine
Reviewed with nursing staff and care team
Outpatient pulm evaluation recommended-needs PFTs, ongoing smoking cessation counseling, yearly low-dose lung cancer screening CAT scan, etc.
Diagnostic Data:
Chest x-ray 08/14/2025-large right pneumothorax, no shift of midline structures
Chest x-ray 08/15/2025-interval placement of right-sided chest tube without radiographic evidence for residual pneumothorax
CT [id number] 09/17/2024-scattered pulmonary nodules, no definitive new suspicious pulmonary nodules, ascending aorta appears dilated measuring 4.4 cm previously 4.2 cm when compared to 03/2023, right upper lobe 4 mm nodule, right middle lobe 4
mm nodule, right lower lobe three 3 mm nodule, left lower lobe unchanged 4 mm subpleural nodule
Total time spent on this consultation/encounter __41__ minutes which includes review of history, physical exam, medications, laboratory data, personal review of imaging, extensive review of outpatient records, discussion with care team and
respiratory therapy.
Subjective Data
-
Date of Service:
Date of Service: August 24, 2025
Chief Complaint: Pulmonary Follow Up
Subjective:
Patient seen today at bedside (late note entry). Chest tube removed from suction last night. CXR today shows no pneumothorax on expiratory film. She has pain at the chest tube site and wants the tube out. She has no interest in going home with a
chest tube and if chest tube is needed upon discharge then she would like to go to a facility (rehab/alf, etc.). Patient's daughter is at bedside and all questions answered.
Review of Systems
General: Other (Negative unless mentioned above)
Objective Data
Data Reviewed
Vital Signs / I&O / Oxygen:
Vital Signs
Temp Pulse Resp BP Pulse Ox
98.4 F 88 16 169/76 94
08/24/25 07:18 08/24/25 07:18 08/24/25 07:18 08/24/25 07:18 08/24/25 07:40
Intake and Output
08/23/25 08/24/25 08/25/25
06:59 06:59 06:59
Intake Total 1200 / 1200 1560 / 1560
Output Total 5 /
Balance 1181 / 1181 1555 / 1555
SaO2 94
Nasal Cannula flow liters per 4
minute
Physical Exam
General: Respiratory Distress (negative), Pain (Right hemithorax at chest tube insertion site) and Other (NAD)
HEENT: Normocephalic, Anicteric and Moist Mucous Membranes
Cardiovascular: S1-S2 and Peripheral Edema (negative)
Respiratory: Clear, Non-Labored Respirations, Chest Tube (right hemithorax) and Other (diminished breath sounds bilaterally)
GI: Soft, Non Distended and Non Tender
Neurology: Awake, Alert, Oriented and Tremors (negative)
Skin: Warm and Dry
Labs/Micro/Reports
Lab Data
08/20/25 07:10
08/20/25 07:10
[2025-08-24 15:50] VITALS: BP 115/64
[2025-08-24] MEDS: MORPHINE SULFATE 1 MG IV ×2 (16:25→21:57)
[2025-08-24] MEDS: LOVENOX 40 MG SC (18:04)
[2025-08-24 19:15] VITALS: BP 151/68
[2025-08-24] MEDS: TYLENOL 650 MG PO (19:41)
[2025-08-24] MEDS: PEPCID 20 MG PO (21:57)
[2025-08-24] MEDS: SEROQUEL 400 MG PO (22:13)
[2025-08-24 23:00] VITALS: BP 130/62
[2025-08-25 03:12] VITALS: BP 152/70
--- NOTE | 2025-08-25 03:35 | W.PN.CT ---
Today's Communication / Plan
-
Plan:
-Chest tube has been on water seal since the night of 08/23/25
-No air leak noted this AM, cannot appreciate a ptx on cxr this AM, SQ emphysema present, f/u official report
-Dr. Diaz to see this AM, considering Heimlich valve
Assessment / Plan
-
Assessment:
-Larger right pneumothorax (~50%) on 08/14/25
-S/P 14F chest tube placement by IR 08/14/25
-Chest tube kinked S/P 16F chest tube placement by IR 08/20/25
-Subcutaneous emphysema
-Advanced emphysematous disease/COPD
-Apical bullous disease
-Tobacco Abuse (40 pk/yr; currently 1pk/d)
-Bipolar disease
-Anxiety disorder
-PNA 2017
-HTN
-HLD
-Ascending aorta dilatation (4.5 cm)
-S/P Left upper lobectomy,
-S/p Hysterectomy
Discussed patient care with: Nursing, Respiratory Therapy, Pharmacy and Care Team
Subjective
-
Date of Service: August 25, 2025
Pt c/o mild incisional pain and cough, otherwise feels well. Denies SOB
Objective Data
Vital Signs
Vital Signs
Temp Pulse Resp BP Pulse Ox
98.3 F 70 14 152/70 95
08/25/25 03:12 08/25/25 03:12 08/25/25 03:12 08/25/25 03:12 08/25/25 03:12
CT Intake/Output/Weight
08/24/25 08/24/25 08/25/25
06:59 18:59 06:59
Intake Total 240 / 1560 480 / 480
Output Total 0 / 0
Balance 240 / 1555 480 / 480
SaO2: 95 (RA)
Physical Exam
-
General: Awake, Oriented and AOx3
Cardiovascular: Regular rate & rhythm, No Murmurs, No Rub and No Gallop
Respiratory: Decreased Breath Sounds (on right, otherwise clear)
Sternum: Stable
Incision: Clean, Dry, Intact and Dressing Intact
Extremities: No Edema
Data Reviewed
-
Lab Results: Results Reviewed
Medications: Active Meds Reviewed
Chest X-Ray: Report Reviewed and Image Reviewed
ECG: Report Reviewed and Image Reviewed
[2025-08-25] MEDS: MORPHINE SULFATE 1 MG IV ×3 (05:34→22:27)
[2025-08-25 07:13] VITALS: BP 158/98
[2025-08-25 07:42] LABS: Hematocrit 38.1 % (37.0-47.0); Hemoglobin 12.8 g/dL (12.0-16.0); Mean Corp Hgb Conc. 33.6 g/dL (33.0-37.0); Mean Corpuscular Volume 89.4 fL (81.0-99.0); Platelet Count 240 10^3/uL (130-400); Red Cell Dist. Width 13.2 % (11.5-14.5)
[2025-08-25 08:24] LABS: Blood Urea Nitrogen 17 mg/dl (7-17); Calcium 10.1 mg/dl (8.4-10.2); Carbon Dioxide 29 mmol/L (22-30); Chloride 109 mmol/L (98-107); Estimated Creatinine Clearance 73 ml/min; Glucose 77 mg/dl (70-99); Potassium 3.9 mmol/L (3.5-5.1); Sodium 143 mmol/L (135-145); eGFR > 60.00
[2025-08-25] MEDS: LIPITOR 40 MG PO (09:16)
[2025-08-25] MEDS: CYMBALTA DELAYED RELEASE 60 MG PO (09:16)
[2025-08-25] MEDS: NEURONTIN 600 MG PO ×2 (09:17→20:25)
[2025-08-25] MEDS: PROTONIX 40 MG PO (09:17)
[2025-08-25] MEDS: KLONOPIN 1 MG PO ×2 (09:17→12:18)
[2025-08-25] MEDS: NORCO 7.5/325 1 TABLET PO ×4 (09:17→20:26)
[2025-08-25] MEDS: BELBUCA 150 MCG BUCCAL (09:17)
[2025-08-25] MEDS: NICODERM TRANSDERMAL 14 MG TRANSDERM (09:19)
[2025-08-25] MEDS: BELBUCA 600 MCG BUCCAL (09:19)
[2025-08-25] MEDS: TESSALON PERLES 100 MG PO ×2 (09:24→16:59)
--- NOTE | 2025-08-25 09:43 | W.PN.UPDATE ---
Update Note
Progress Note Update
Chest drain changed from Pleuravac to Heimlich and attached to vented Anna leg bag. Connection secured with Zip ties. Dressing changed. F/U CXR today and tomorrow. If stable, can discharge 08/26.
--- NOTE | 2025-08-25 11:46 | W.PN.PUL3 ---
Today's Communication / Plan
-
- Follow-up portable chest x-ray in a.m.
- Discharge planning
Assessment
-
70-year-old smoking female with history of underlying COPD, hypertension, hyperlipidemia, and distant history of left upper lobectomy/surgery in the for 'lung collapse' presented with increasing shortness of breath for 1 week felt to be COPD
exacerbation unresponsive to steroids doxycycline and came to the emergency room and found to have large right-sided pneumothorax-pulmonary consulted for COPD/pneumothorax 08/15/2025.
Large right pneumothorax status post chest tube 08/14/2025-interventional radiology
Recent COPD exacerbation
Recurrent ptx due to chest tube issues
Persistent air leak � now resolved
Conditions present prior to admission:
COPD-last saw asbestos remover-Dr. Sumner[facility] about 5 years ago-maintained on Trelegy and albuterol, no oxygen
Cigarette smoker-1 pack/day.
Multiple pulmonary nodules-stable 04/12/2023 through 09/17/2024
Hypertension.
Hyperlipidemia.
Valvular disease.
Hysterectomy. Left upper lobe surgery-lobectomy versus pneumothorax related .
Plan
Respiratory decompensation due to pneumothorax in this patient with underlying COPD
Currently on room air breathing comfortably
Did well on waterseal over the weekend, x-ray this morning without pneumothorax.
Keep chest tube to continuous waterseal
CT surgery was consulted and given the high risk for pneumothorax recurrence, s/p Heimlich valve placement on 08/25. Mild fogging noted in the chamber with expiration, suggestive of some air leak. Follow-up chest x-ray in a.m.
COPD noted not currently in AE
Nebulizers if needed
Patient on Trelegy as an outpatient
PFT reviewed-moderate obstruction
Chest tube placed by interventional radiology
Chest x-ray 08/15/2025 without evidence for pneumothorax
Reported h/o left sided pneumothorax 25 years ago required 'surgical fusion' per patient.
Tube kinked again, IR upsized 08/[address] chest prior to discharge-due for August yearly low-dose lung cancer screening CT
Smoking cessation counseling
Nicotine patch if needed
DVT prophylaxis-on Lovenox
GI prophylaxis-on famotidine
Reviewed with nursing staff and care team
Outpatient pulm evaluation recommended-needs PFTs, ongoing smoking cessation counseling, yearly low-dose lung cancer screening CAT scan, etc.
Diagnostic Data:
Chest x-ray 08/14/2025-large right pneumothorax, no shift of midline structures
Chest x-ray 08/15/2025-interval placement of right-sided chest tube without radiographic evidence for residual pneumothorax
CT gogpb-qgk-ofom 09/17/2024-scattered pulmonary nodules, no definitive new suspicious pulmonary nodules, ascending aorta appears dilated measuring 4.4 cm previously 4.2 cm when compared to 03/2023, right upper lobe 4 mm nodule, right middle lobe 4
mm nodule, right lower lobe three 3 mm nodule, left lower lobe unchanged 4 mm subpleural nodule
Total time spent on this consultation/encounter __38__ minutes which includes review of history, physical exam, medications, laboratory data, personal review of imaging, extensive review of outpatient records, discussion with care team and
respiratory therapy.
Subjective Data
-
Date of Service:
Date of Service: August 25, 2025
Chief Complaint: Pulmonary Follow Up
Subjective:
Comfortably sitting in bed in no acute distress.
Review of Systems
Genitourinary: Other (All 14 systems reviewed and negative except as stated above in the history of present illness.)
Objective Data
Data Reviewed
Vital Signs / I&O / Oxygen:
Vital Signs
Temp Pulse Resp BP Pulse Ox
98.7 F 88 16 158/98 93
08/25/25 07:13 08/25/25 07:13 08/25/25 07:13 08/25/25 07:13 08/25/25 08:00
Intake and Output
08/24/25 08/25/25 08/26/25
06:59 06:59 06:59
Intake Total 1560 / 1560 730 / 730
Output Total 0 / 0
Balance 1555 / 1555 730 / 730
SaO2 93
Nasal Cannula flow liters per 4
minute
Physical Exam
General: Respiratory Distress (negative), Pain (Right hemithorax at chest tube insertion site) and Other (NAD)
HEENT: Normocephalic, Anicteric and Moist Mucous Membranes
Cardiovascular: S1-S2 and Peripheral Edema (negative)
Respiratory: Clear, Non-Labored Respirations and Chest Tube (In place, Heimlich valve in place.)
GI: Soft, Non Distended and Non Tender
Neurology: Awake, Alert, Oriented and Tremors (negative)
Skin: Warm and Dry
Labs/Micro/Reports
Lab Data
08/25/25 06:47
08/25/25 06:47
--- NOTE | 2025-08-25 12:04 | W.PN.HOSP.TC ---
Today's Communication/Plan
-
s/p heimlich valve
f/u AM CXR
follow surgery/pulm recs
Assessment / Plan
Assessment / Plan
Assessment:
SOB secondary to large right-sided pneumothorax-resolved symptoms
Large right-sided pneumothorax with collapse of the right lung
Acute hypoxic respiratory insufficiency on 2-4 L NC
- noted prior history of LUDMILA pneumothorax with lobectomy in
- s/p chest tube insertion 08/14
- patient had ongoing air leak with increased suction and also issues with tube kinking externally
- underwent upsizing/repositioning of tube on 08/20
- persistent air leak with upsized tube 08/22
- CT chest 08/22: Advanced emphysematous disease within the right upper lobe with apical bullous disease. Moderate amount of subcutaneous emphysema within the lateral right chest wall
- CT surgery following; chest tube converted to heimlich valve on 08/25
- follow serial daily imaging along with as needed CXR for changes in chest tube orders
- IR/Pulm/CT surg following
Recent COPD exacerbation
- completed doxy and steroid course
- supportive care, cough suppressants
- No evidence of exacerbation
Essential HTN
- observe off BP Meds
HLD - statin
Valvular disease
Tobacco abuse
- nicotine patch
- cessation counselling provided
Anxiety/Depression
- continue meds
DVT ppx: Lovenox
Code: Full
Anticipated Discharge: 24 - 48 hours
Subjective/Interval History
-
Date of Service: August 25, 2025
s/p Heimlich valve placement
no complaints except mild chest discomfort from tube
Objective Data
-
Labs:
Laboratory Results
08/25/25
06:47
WBC 7.1
Hgb 12.8
Hct 38.1
Plt Count 240
Sodium 143
Potassium 3.9
Chloride 109 H
Carbon Dioxide 29
BUN 17
Creatinine 0.7
Glucose 77
Calcium 10.1
Vital Signs:
Vital Signs
Temp Pulse Resp BP Pulse Ox
98.7 F 88 16 158/98 93
08/25/25 07:13 08/25/25 07:13 08/25/25 07:13 08/25/25 07:13 08/25/25 08:00
I&O
08/24/25 08/25/25 08/26/25
06:59 06:59 06:59
Intake Total 1560 / 1560 730 / 730
Output Total 5 / 5 0 / 0
Balance 1555 / 1555 730 / 730
Physical Exam
-
General: No Apparent Distress
HEENT: Normocephalic and Atraumatic
Respiratory: Chest Tubes (heimlich valve); Negative Wheezes
Cardiac: Regular Rhythm and S1/S2
Genito-urinary: No Costovertebral Tender
Neuro: AO x 3
Psych: Calm
Data Reviewed
-
Total Time Spent with Patient (in minutes): 42
Labs: Labs Reviewed by me
--- NOTE | 2025-08-25 14:13 | CM ---
CM following re: discharge planning.
Reviewed pt' chart, met with pt.
Per MD pt possibly will be ready for discharge tomorrow and pt will need VN services for dressing change. Pt is aware, expressed her agreement and she stated she will stay in daughter's apartment and daughter will transport at discharge.VN choices
given, pt preferred [facility]. A referral to [facility] made.
IMM reviewed, placed on chart, pt has a copy.
Pt lives alone in an apartment, daughter lives in the same apartment building and pt is independent in all areas [employer].
Pt has a RW, cane, raised toilet sit, shower chair, was at [facility] in 2023. Pt expressed her desire to return back home at discharge.
D/C plan: home with [facility] for dressing change and family support. Daughter to transport at discharge.
CM will follow with discharge plan updates as needed.
[2025-08-25 15:14] VITALS: BP 136/68
--- NOTE | 2025-08-25 15:16 | VNURNOTE ---
Home Health Liaison met with patient and daughter Lourdes at bedside to discuss [facility] nurse/therapy, visits, schedule and homebound status. Patient is agreeable and understands that visits at home will be 2-3 x per week to assess and teach
medical management.They are aware that [facility] will contact them for start of care in 1-2 days after discharge from . Provided contact number for [facility].
PM [facility] referral completed in [facility].
[2025-08-25] MEDS: TYLENOL 650 MG PO (16:59)
[2025-08-25] MEDS: LOVENOX 40 MG SC (17:57)
[2025-08-25] MEDS: BELBUCA BUCCAL ×2 (20:22→20:23)
[2025-08-25] MEDS: PEPCID 20 MG PO (22:28)
[2025-08-25] MEDS: SEROQUEL 400 MG PO (22:28)
[2025-08-25 23:00] VITALS: BP 121/66
--- NOTE | 2025-08-26 00:07 | W.PN.CT ---
Today's Communication / Plan
-
Plan:
-No major issues overnight
-Chest tube transitioned to Heimlich valve yesterday 08/25
-Cannot appreciate a ptx on cxr this AM, SQ emphysema present, f/u official report
-Home today with Heimlich valve
Assessment / Plan
-
Assessment:
-Larger right pneumothorax (~50%) on 08/14/25
-S/P 14F chest tube placement by IR 08/14/25
-Chest tube kinked S/P 16F chest tube placement by IR 08/20/25
-Subcutaneous emphysema
-Advanced emphysematous disease/COPD
-Apical bullous disease
-Tobacco Abuse (40 pk/yr; currently 1pk/d)
-Bipolar disease
-Anxiety disorder
-PNA 2017
-HTN
-HLD
-Ascending aorta dilatation (4.5 cm)
-S/P Left upper lobectomy,
-S/p Hysterectomy
Discussed patient care with: Cardiology, Nursing, Respiratory Therapy, Pharmacy and Care Team
Subjective
-
Date of Service: August 26, 2025
Pt c/o mild cough, otherwise feels well
Objective Data
-
Lab Results
08/25/25 06:47
08/25/25 06:47
Vital Signs
Vital Signs
Temp Pulse Resp BP Pulse Ox
98.1 F 66 16 121/66 96
08/25/25 23:00 08/25/25 23:00 08/25/25 23:00 08/25/25 23:00 08/25/25 23:00
CT Intake/Output/Weight
08/25/25 08/25/25 08/26/25
06:59 18:59 06:59
Intake Total 730 / 730 480 / 480
Output Total 0 / 0
Balance 730 / 730 480 / 480
SaO2: 96 (RA)
Physical Exam
-
General: Awake, Oriented and AOx3
Cardiovascular: Regular rate & rhythm, No Murmurs, No Rub and No Gallop
Respiratory: Decreased Breath Sounds (on right, otherwise clear)
Sternum: Stable
Incision: Clean, Dry, Intact and Dressing Intact
Extremities: No Edema
Data Reviewed
-
Lab Results: Results Reviewed
Medications: Active Meds Reviewed
Chest X-Ray: Report Reviewed and Image Reviewed
CT Scan: Report Reviewed and Image Reviewed
ECG: Report Reviewed and Image Reviewed
[2025-08-26 07:08] VITALS: BP 147/79
[2025-08-26] MEDS: NORCO 7.5/325 1 TABLET PO ×2 (07:40→16:12)
[2025-08-26] MEDS: KLONOPIN 1 MG PO ×2 (07:41→13:16)
[2025-08-26] MEDS: LIPITOR 40 MG PO (07:41)
[2025-08-26] MEDS: CYMBALTA DELAYED RELEASE 60 MG PO (07:41)
[2025-08-26] MEDS: PROTONIX 40 MG PO (07:41)
[2025-08-26] MEDS: NICODERM TRANSDERMAL 14 MG TRANSDERM (07:41)
[2025-08-26] MEDS: NEURONTIN 600 MG PO (07:41)
[2025-08-26] MEDS: BELBUCA 150 MCG BUCCAL (07:45)
[2025-08-26] MEDS: BELBUCA 600 MCG BUCCAL (07:45)
--- NOTE | 2025-08-26 12:43 | CM ---
Patient for discharge seen on . Patient for discharge home with [facility]. Patient with no questions and has IMM. CM will continue to follow for discharge planning needs.
Plan; home with [facility]
--- NOTE | 2025-08-26 13:01 | W.PN.HOSP.TC ---
Today's Communication/Plan
-
dc to home/VN today
Assessment / Plan
Assessment / Plan
Assessment:
SOB secondary to large right-sided pneumothorax-resolved symptoms
Large right-sided pneumothorax with collapse of the right lung
Acute hypoxic respiratory insufficiency on 2-4 L NC
- noted prior history of LUDMILA pneumothorax with lobectomy in
- s/p chest tube insertion 08/14
- patient had ongoing air leak with increased suction and also issues with tube kinking externally
- underwent upsizing/repositioning of tube on 08/20
- persistent air leak with upsized tube 08/22
- CT chest 08/22: Advanced emphysematous disease within the right upper lobe with apical bullous disease. Moderate amount of subcutaneous emphysema within the lateral right chest wall
- CT surgery following; chest tube converted to heimlich valve on 08/25
- repeat CXRs stable
- DC with OP F/u with CTS next week and Pulm in 1-2 weeks
Recent COPD exacerbation
- completed doxy and steroid course
- supportive care, cough suppressants
- No evidence of exacerbation
Essential HTN
- observe off BP Meds
HLD - statin
Valvular disease
Tobacco abuse
- nicotine patch
- cessation counselling provided
Anxiety/Depression
- continue meds
DVT ppx: Lovenox
Code: Full
More than 30 minutes spent in discharge including
Final examination of the patient
Summarizing hospital stay
Instructions for continuing care to all relevant caregivers
Preparation of discharge records, prescriptions, and referral forms
Total time spent (in minutes):41
Anticipated Discharge: Today
Subjective/Interval History
-
Date of Service: August 26, 2025
resting comfortably, no complaints
no PTX on CXR
Objective Data
-
Vital Signs:
Vital Signs
Temp Pulse Resp BP Pulse Ox
98.4 F 79 16 147/79 95
08/26/25 07:08 08/26/25 07:08 08/26/25 07:08 08/26/25 07:08 08/26/25 07:08
I&O
08/25/25 08/26/25 08/27/25
06:59 06:59 06:59
Intake Total 730 / 730 720 / 720
Output Total 0 / 0
Balance 730 / 730 720 / 720
Physical Exam
-
General: No Apparent Distress
HEENT: Normocephalic and Atraumatic
Respiratory: Chest Tubes (with Heimlich valve); Negative Wheezes
Cardiac: Regular Rhythm and S1/S2
GI: Soft
Genito-urinary: No Costovertebral Tender
Neuro: AO x 3
Psych: Calm
Data Reviewed
-
Total Time Spent with Patient (in minutes): 41
Labs: Labs Reviewed by me
--- NOTE | 2025-08-26 13:03 | W.DCSUMMARY ---
Discharge Summary
Discharge Data
Date of Admission: 08/14/25
Date of Discharge: 08/26/25
-
Pending Results: No
Hospital Course
70 y/o F admitted, hx of COPD with recent exacerbation, HTN, HLD, anxiety/depression presented on 08/14 with 1 week of SOB - not improved with acute COPD treatment. Imaging revealed right sided pneumothorax. She underwent IR guided chest tube
placement but had issues with tube kinking and airleaks requiring upsizing of tube. Pulmonary and Cardiothoracic surgery were consulted and patient had Heimlich valve placed 08/25. Chest x-rays prior to discharge showed no residual pneumothorax. She
will follow up with thoracic surgery next week for repeat CXR and with pulmonary in a few weeks.
Discharge Plan
-
Patient Disposition: Home with Home Care
Discharge Diagnosis/Procedures: Right sided pneumothorax s/p chest tube now also with heimlich valve
Condition: Fair
Diet: Regular
Additional Activity: light activity
Bathing Restrictions: None
Others Tests: Please obtain Chest X-ray on Monday08/29/25 and on 09/02/25 prior to seeing CARITO Antoine in office.
Other Services: VN
Wound Care: VN to assess R Heimlich site and cleanse site with CHG and cover with 4x4 drain gauze, cover with Tegaderm dressing daily
Referrals:
Sukhdev Roberson MD [Active, Pulmonary Medicine] - in two to three weeks
Referral Note: Pneumothorax follow-up, needs August CT chest ION--history of pulmonary nodules stable
UNKNOWN - PT DOES,NOT KNOW [Family Provider]
Elinor Albarado CRNP [Specified Professional Personl, Cardiac Surgery] - 09/02/25 2:00 pm
Referral Note: evaluation of Heimlich drain
Prescriptions:
New
benzonatate 100 mg Capsule
100 mg PO TIDPRN PRN (Reason: cough) Qty: 30 0RF
sennosides-docusate sodium [Senna Plus] 8.6-50 mg Tablet
1 tab PO BIDPRN PRN (Reason: constipation) Qty: 0 0RF
Continued
atorvastatin 40 MG tablet
40 mg PO DAILY
buprenorphine HCl [Belbuca] 750 MCG film
750 mcg BC BID
quetiapine 200 mg tablet
400 mg PO HS
clonazepam 1 mg tablet
1 mg PO BID@0800,1200
omeprazole 40 mg capsule,delayed release(DR/EC)
40 mg PO DAILY
famotidine 20 mg tablet
20 mg PO HS
gabapentin 300 mg capsule
600 mg PO BID
albuterol sulfate 90 mcg/actuation HFA aerosol inhaler
2 puff INHALATION R Q4HPRN PRN (Reason: sob/wheezing)
duloxetine 60 mg capsule,delayed release(DR/EC)
60 mg PO DAILY
Trelegy Ellipta 100-62.5-25 mcg blister with device
1 inh INHALATION R DAILY
Changed
hydrocodone-acetaminophen 7.5-325 mg tablet
1 tab PO BID PRN (Reason: Pain) Qty: 30 0RF
Discharge Orders:
Discharge Patient (As Directed); Ordered 08/26/25
Ordered By: Lalo Todd
Discharge Date and Time
Print Language: ALBANIAN
[2025-08-26 14:44] VITALS: BP 148/82
--- NOTE | 2025-08-26 14:46 | VNURNOTE ---
[facility], reinforced to her that VN will contact her daughter Lourdes (per her request), prior to VN visit. Pt verbalized understanding.
--- NOTE | 2025-08-26 15:43 | W.PN.PUL3 ---
Today's Communication / Plan
-
- Resume Trelegy at d/c
- Out patient follow up with CT surgery and Pulmonary clinic.
Assessment
-
70-year-old smoking female with history of underlying COPD, hypertension, hyperlipidemia, and distant history of left upper lobectomy/surgery in the for 'lung collapse' presented with increasing shortness of breath for 1 week felt to be COPD
exacerbation unresponsive to steroids doxycycline and came to the emergency room and found to have large right-sided pneumothorax-pulmonary consulted for COPD/pneumothorax 08/15/2025.
Large right pneumothorax status post chest tube 08/14/2025-interventional radiology
Recent COPD exacerbation
Recurrent ptx due to chest tube issues
Persistent air leak � now resolved
Conditions present prior to admission:
COPD-last saw event promoter-Dr. [facility] about 5 years ago-maintained on Trelegy and albuterol, no oxygen
Cigarette smoker-1 pack/day.
Multiple pulmonary nodules-stable 04/12/2023 through 09/17/2024
Hypertension.
Hyperlipidemia.
Valvular disease.
Hysterectomy. Left upper lobe surgery-lobectomy versus pneumothorax related .
Plan
Respiratory decompensation due to pneumothorax in this patient with underlying COPD
Currently on room air breathing comfortably
Did well on waterseal over the weekend, x-ray this morning again without pneumothorax.
S/p Heimlich valve placement on 08/25. Mild fogging noted in the chamber with expiration, suggestive of some air leak. Follow-up chest x-ray this Am unchanged
Plan for out patient CXR and f/u with Ct Surgery
Counselled patient regarding symptoms to watch for, particularly increased work of breathing and to call EMS right away.
COPD noted not currently in AE
Nebulizers if needed
Patient on Trelegy as an outpatient
PFT reviewed-moderate obstruction
Chest tube placed by interventional radiology
Chest x-ray 08/15/2025 without evidence for pneumothorax
Reported h/o left sided pneumothorax 25 years ago required 'surgical fusion' per patient.
Tube kinked again, IR upsized 08/[address] chest prior to discharge-due for August yearly low-dose lung cancer screening CT
Smoking cessation counseling
Nicotine patch if needed
DVT prophylaxis-on Lovenox
GI prophylaxis-on famotidine
Reviewed with nursing staff and care team
Outpatient pulm evaluation recommended-needs PFTs, ongoing smoking cessation counseling, yearly low-dose lung cancer screening CAT scan, etc.
Diagnostic Data:
Chest x-ray 08/14/2025-large right pneumothorax, no shift of midline structures
Chest x-ray 08/15/2025-interval placement of right-sided chest tube without radiographic evidence for residual pneumothorax
CT [id number] 09/17/2024-scattered pulmonary nodules, no definitive new suspicious pulmonary nodules, ascending aorta appears dilated measuring 4.4 cm previously 4.2 cm when compared to 03/2023, right upper lobe 4 mm nodule, right middle lobe 4
mm nodule, right lower lobe three 3 mm nodule, left lower lobe unchanged 4 mm subpleural nodule
Total time spent on this consultation/encounter __38__ minutes which includes review of history, physical exam, medications, laboratory data, personal review of imaging, extensive review of outpatient records, discussion with care team and
respiratory therapy.
Subjective Data
-
Date of Service:
Date of Service: August 26, 2025
Chief Complaint: Pulmonary Follow Up
Subjective:
Comfortably sitting in bed, on room air.
Review of Systems
Genitourinary: Other (No new symptoms reported)
Objective Data
Data Reviewed
Vital Signs / I&O / Oxygen:
Vital Signs
Temp Pulse Resp BP Pulse Ox
98.3 F 73 16 148/82 97
08/26/25 14:44 08/26/25 14:44 08/26/25 14:44 08/26/25 14:44 08/26/25 14:44
Intake and Output
10/08/26/25 08/27/25
06:59 06:59 06:59
Intake Total 730 / 730 720 / 720
Output Total 0 / 0
Balance 730 / 730 720 / 720
SaO2 97
Nasal Cannula flow liters per 4
minute
Physical Exam
General: Respiratory Distress (negative), Pain (Right hemithorax at chest tube insertion site) and Other (NAD)
HEENT: Normocephalic, Anicteric and Moist Mucous Membranes
Cardiovascular: S1-S2 and Peripheral Edema (negative)
Respiratory: Clear, Non-Labored Respirations and Chest Tube (In place, Heimlich valve in place.)
GI: Soft, Non Distended and Non Tender
Neurology: Awake, Alert, Oriented and Tremors (negative)
Skin: Warm and Dry
Labs/Micro/Reports
Lab Data
08/25/25 06:47
08/25/25 06:47
[2025-08-26] MEDS: LOVENOX 40 MG SC (17:10)
== END 2025-08-26 19:15 | disposition home health service (06) | DRG 200 ==
LOC: 2 NORTH 13:28
PROVIDERS: Physician Assistant Medical; Radiology Diagnostic Radiology; Radiology Vascular & Interventional Radiology; ADMITTING PHYSICIAN Internal Medicine; CONSULT PHYSICIAN Internal Medicine Critical Care Medicine; EMERGENCY PHYSICIAN Student in an Organized Health Care Education/Training Program; OTHER PHYSICIAN Student in an Organized Health Care Education/Training Program
PROC: 0W9930Z Drainage of Right Pleural Cavity with Drainage Device, Percutaneous Approach (ICD-10-PCS; 2025-08-14)
DX: J93.9 Pneumothorax, unspecified (principal); J44.1 Chronic obstructive pulmonary disease with (acute) exacerbation; J98.19 Other pulmonary collapse; Z11.52 Encounter for screening for COVID-19; F17.210 Nicotine dependence, cigarettes, uncomplicated; I10 Essential (primary) hypertension; F31.9 Bipolar disorder, unspecified; F41.9 Anxiety disorder, unspecified; Z71.6 Tobacco abuse counseling; Z79.899 Other long term (current) drug therapy; Z87.01 Personal history of pneumonia (recurrent)
CPT/HCPCS: 32557; 71045; 71046; 71250; 76000; 80048; 80053; 83880; 84484; 85025; 85027; 87502; 87811; 93005; 94640; 96374; 99152; 99153; 99291; C1729; C1769

== ENCOUNTER → 2025-08-29 14:47 | Outpatient (REF) | payer OTHER, SELFPAY | LOC: RAD 14:47 | PROVIDERS: ATTENDING PHYSICIAN Thoracic Surgery (Cardiothoracic Vascular Surgery); FAMILY PHYSICIAN Nurse Practitioner Family | DX: J93.9 Pneumothorax, unspecified (principal); Z93.8 Other artificial opening status | CPT/HCPCS: 71046 ==

== ENCOUNTER → 2025-09-02 13:27 | Outpatient (REF) | payer OTHER, SELFPAY | LOC: RAD 13:27 | PROVIDERS: ATTENDING PHYSICIAN Thoracic Surgery (Cardiothoracic Vascular Surgery) | DX: J93.9 Pneumothorax, unspecified (principal); Z93.8 Other artificial opening status | CPT/HCPCS: 71046 ==